=== PATIENT | female | born 2000 | race Caucasian/White ===

== ENCOUNTER 2023-06-22 14:06 | Emergency (ER) | payer OTHER, MEDICAID, SELFPAY ==
[2023-06-22 14:12] VITALS: BP 122/61; PULSE 98; RESP 18; TEMP 36.6; O2SAT 98; BMI 35.0
--- NOTE | 2023-06-22 14:30 | ECG_ITS ---
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
--- NOTE | 2023-06-22 14:30 | ED.GENADUL1 ---
Documented by User: BRENDEN Ansari 06/22/23 15:29 HPI - General Adult General Chief complaint: Abdominal Pain Stated complaint: GENERAL WEEKNESS Time Seen by Provider: 06/22/23 14:16 Source: patient Mode of arrival: walk-in History of Present Illness HPI narrative: patient is a 22-year-old female presents to the Emergency Room with concerns of generalized weakness and fatigue. Patient's primary concern with significant other at the bedside is that she may be . She had similar symptoms in the past which resulted in a miscarriage. She has only had one prior documented . She did take a home urine test that was negative a few weeks ago. Patient states her last menstrual cycle was May 24. She denies any current nausea vomiting or diarrhea. States she has not wanted to eat much in the mornings. She appears in no distress. She has had a prior history of bladder surgery as an and occasionally gets urinary tract infection and notes intermittent pelvic discomfort but denies any current symptoms. Patient denies any chest pain or shortness of breath. She denies any vaginal discharge or bleeding. Related Data Home Medications Medication Instructions Recorded Confirmed bupropion HCl 300 mg 24 hr tablet, 300 mg PO DAILY 06/22/23 06/22/23 extended release lumateperone 42 mg capsule 42 mg PO DAILY 06/22/23 06/22/23 (Caplyta) quetiapine 100 mg tablet 100 mg PO DAILY 06/22/23 06/22/23 Allergies Allergy/AdvReac Type Severity Reaction Status Date / Time No Known Drug Allergies Allergy Verified 06/22/23 14:15 Review of Systems ROS Constitutional Reports: fatigue; Denies: fever, chills or change in weight Eyes Denies: change in vision or blurry vision Ears, nose, mouth, and throat Denies: throat pain or neck pain Cardiovascular Denies: chest pain or palpitations Respiratory Denies: shortness of breath Gastrointestinal Denies: nausea (occasional nausea in mornings, denies current symptoms), vomiting or diarrhea Genitourinary Denies: painful urination Musculoskeletal Denies: back pain, neck pain or extremity pain Integumentary/Breast Denies: rash, itching or redness Neurological Denies: headache or numbness in extremities Psychiatric Denies: anxiety Endocrine Denies: excessive urination PFSH PFSH Social History Smoking status: Current some day smoker Exam Narrative Exam Narrative: Nurses notes and vital signs reviewed and patient is not hypoxic. General:? The patient appears well and in no apparent distress.? Patient is resting comfortably on cart. Skin:? Warm, dry, no pallor noted. Head:? Normocephalic, atraumatic Neck:? Supple, trachea mid-line, no tenderness, no lymphadenopathy Eye:? Pupils are equal, round and reactive to light, EOMI Ears, Nose, Mouth, and Throat:? TM are clear, normal light reflex, oral mucosa is moist, no posterior oropharynx erythema or hypertrophy, uvula is mid-line Cardiovascular:? Regular Rate and Rhythm Respiratory:? Patient is in no distress, no accessory muscle use, lungs are clear to auscultation, no wheezing, rales or rhonchi. Chest Wall:? no tenderness Back:? non-tender, no CVA tenderness Musculoskeletal:? normal ROM, no tenderness, no swelling GI:? Normal bowel sounds, no tenderness to palpation, no masses appreciated.? No rebound, guarding, or rigidity noted. Abdomen non surgical Neurological:? A&O x4 Psychiatric:? Cooperative Constitutional Vital Signs, click to edit/add: Last Vital Signs Temp 98 F 06/22/23 14:12 Pulse 98 H 06/22/23 14:12 Resp 18 06/22/23 14:12 BP 122/61 06/22/23 14:12 Pulse Ox 98 06/22/23 14:12 O2 Del Method Room Air 06/22/23 14:12 Course Vital Signs Vital signs: Vital Signs Temperature 98 F 06/22/23 14:12 Pulse Rate 98 H 06/22/23 14:12 Respiratory Rate 18 06/22/23 14:12 Blood Pressure 122/61 06/22/23 14:12 Pulse Oximetry 98 06/22/23 14:12 Oxygen Delivery Method Room Air 06/22/23 14:12 Temperature 98 F 06/22/23 14:12 Pulse Rate 98 H 06/22/23 14:12 Respiratory Rate 18 06/22/23 14:12 Blood Pressure 122/61 06/22/23 14:12 Pulse Oximetry 98 06/22/23 14:12 Oxygen Delivery Method Room Air 06/22/23 14:12 Medical Decision Making MDM Narrative Medical decision making narrative: patient presents with vague fatigue symptoms over the past two weeks, decreased appetite in the mornings with am nausea. Previous home test negative, patient states she has had a negative test in the past that was later confirmed positive during a miscarriage at Hospital. She has a pertinent history for prior bladder surgery as an infant with occasional urinary tract infection. Urinalysis will be obtained and blood work appropriate for her symptoms. Patient to be given 1 L IV fluids. we discussed patient's generalized fatigue, she was noting multiple symptoms concerning for . We discussed the timing of her last menstrual cycle and testing still may be too early to tell and recommend healthy eating, avoiding alcohol and quitting smoking if she is trying to become . We discussed the need for outpatient follow-up and she will be given the local providers. Patient aware that may be further outpatient testing and to patient's fatigue that can be performed, and that she may return to the Emergency Room if symptoms worsen or new symptoms develop. The patient is to followup with primary care physician in next 5-7 days or to return to the emergency department should any of the signs or symptoms worsen or new symptoms develop. Patient had questions answered. The patient agrees with the following Diagnosis and Treatment plan and the patient will be discharged home.? Lab Data Lab results reviewed: Yes I reviewed the patient's lab results Lab results narrative: discussed discussed urinalysis without evidence of infection, Monospot was negative. Discussed negative test. Labs: Lab Results 06/22/23 06/22/23 Range/Units 14:40 14:45 WBC 7.2 (4.0-11.0) 10^3/uL RBC 4.26 (4.20-5.40) 10^6/uL Hgb 13.4 (12.0-16.0) g/dL Hct 37.8 (36.0-48.0) % MCV 88.7 (81.0-99.0) fL MCH 31.5 (26.7-34.0) pg MCHC 35.4 H (29.9-35.2) g/dL RDW 12.2 (11.0-15.0) % Plt Count 234 (150-450) 10^3/uL MPV 9.8 (9.5-13.5) fL Neut % (Auto) 61.6 (43.0-75.0) % Lymph % (Auto) 32.5 (20.5-60.0) % [place] % (Auto) 5.4 (1.7-12.0) % Eos % (Auto) 0.0 L (0.9-7.0) % Baso % (Auto) 0.1 L (0.2-2.0) % Neut # (Auto) 4.4 (1.4-6.5) 10^3/uL Lymph # (Auto) 2.3 (1.2-3.8) 10^3/uL [place] # (Auto) 0.4 (0.3-0.8) 10^3/uL Eos # (Auto) 0.0 (0.0-0.7) 10^3/uL Baso # (Auto) 0.0 (0.0-0.1) 10^3/uL Abs Immat Gran (auto) 0.03 (0.00-0.03) 10^3/uL Imm/Tot Granulo (auto) 0.4 (0.0-0.5) % Sodium 139 (136-145) mmol/L Potassium 3.8 (3.5-5.1) mmol/L Chloride 105 (98-107) mmol/L Carbon Dioxide 24.5 (21.0-32.0) mmol/L Anion Gap 13.3 BUN 9.0 (7.0-18.0) mg/dL Creatinine 0.86 (0.55-1.02) mg/dL Est GFR ( Amer) >60 (>=60) Est GFR (Non-Af Amer) >60 (>=60) BUN/Creatinine Ratio 10.5 Glucose 120 H (74-106) mg/dL Calcium 8.6 (8.5-10.1) mg/dL Total Bilirubin 0.8 (0.2-1.0) mg/dL AST 14 L (15-37) U/L ALT 12 L (14-59) U/L Alkaline Phosphatase 64 (46-116) U/L Total Protein 6.6 (6.4-8.2) g/dL Albumin 3.9 (3.4-5.0) g/dL Globulin 2.7 g/dL Albumin/Globulin Ratio 1.4 Serum HCG, Qual Negative (NEGATIVE) Urine Color Yellow (YELLOW) Urine Clarity Clear (CLEAR) Urine pH 6.5 (5.0-9.0) Ur Specific [place] 1.020 (1.005-1.025) Urine Protein Negative (NEG/TRACE) mg/dL Urine Glucose (UA) Negative (NEGATIVE) mg/dL Urine Ketones Negative (NEGATIVE) mg/dL Urine Occult Blood Negative (NEGATIVE) Urine Nitrite Negative (NEGATIVE) Urine Bilirubin Negative (NEGATIVE) Urine Urobilinogen 0.2 (0.2-1.0) EU/dL Ur Leukocyte Esterase Negative (NEGATIVE) Monoscreen Negative (NEGATIVE) ECG Data Attestation: I personally reviewed and interpreted this ECG as follows: Interpretation: EKG interpretation:? Emergency Department physician interpretation, normal sinus rhythm, no ectopy, no ST segment elevation, in complete right bundle-branch block Discharge Plan Discharge Chief Complaint: Abdominal Pain Clinical Impression: Encounter for test, result negative, Fatigue Patient Disposition: Home, Self-Care Time of Disposition Decision: 15:26 Condition: Good Prescriptions / Home Meds: No Action bupropion HCl 300 mg tablet extended release 24 hr 300 mg PO DAILY Caplyta 42 mg capsule 42 mg PO DAILY quetiapine 100 mg tablet 100 mg PO DAILY Instructions: How to Stop Smoking (ED), Fatigue (ED) Stand Alone Forms: Portal Instructions Referrals: Asaf Pack DO [Physician] - 1 week Fuad Victoria MD [Physician] - 1 week Discharge Date/Time: 06/22/23 16:03 Documented by User: Josefina Jasso MD 06/23/23 20:31 HPI - General Adult General Chief complaint: Abdominal Pain Stated complaint: GENERAL WEEKNESS Time Seen by Provider: 06/22/23 14:16 Related Data Home Medications Medication Instructions Recorded Confirmed bupropion HCl 300 mg 24 hr tablet, 300 mg PO DAILY 06/22/23 06/22/23 extended release lumateperone 42 mg capsule 42 mg PO DAILY 06/22/23 06/22/23 (Caplyta) quetiapine 100 mg tablet 100 mg PO DAILY 06/22/23 06/22/23 Allergies Allergy/AdvReac Type Severity Reaction Status Date / Time No Known Drug Allergies Allergy Verified 06/22/23 14:15 PFSH PFSH Social History Smoking status: Current some day smoker Exam Constitutional Vital Signs, click to edit/add: Last Vital Signs Temp 98 F 06/22/23 14:12 Pulse 98 H 06/22/23 14:12 Resp 18 06/22/23 14:12 BP 122/61 06/22/23 14:12 Pulse Ox 98 06/22/23 14:12 O2 Del Method Room Air 06/22/23 14:12 Course Vital Signs Vital signs: Vital Signs Temperature 98 F 06/22/23 14:12 Pulse Rate 98 H 06/22/23 14:12 Respiratory Rate 18 06/22/23 14:12 Blood Pressure 122/61 06/22/23 14:12 Pulse Oximetry 98 06/22/23 14:12 Oxygen Delivery Method Room Air 06/22/23 14:12 Temperature 98 F 06/22/23 14:12 Pulse Rate 98 H 06/22/23 14:12 Respiratory Rate 18 06/22/23 14:12 Blood Pressure 122/61 06/22/23 14:12 Pulse Oximetry 98 06/22/23 14:12 Oxygen Delivery Method Room Air 06/22/23 14:12 Medical Decision Making MDM Narrative Medical decision making narrative: patient presents with vague fatigue symptoms over the past two weeks, decreased appetite in the mornings with am nausea. Previous home test negative, patient states she has had a negative test in the past that was later confirmed positive during a miscarriage at Hospital. She has a pertinent history for prior bladder surgery as an infant with occasional urinary tract infection. Urinalysis will be obtained and blood work appropriate for her symptoms. Patient to be given 1 L IV fluids. we discussed patient's generalized fatigue, she was noting multiple symptoms concerning for . We discussed the timing of her last menstrual cycle and testing still may be too early to tell and recommend healthy eating, avoiding alcohol and quitting smoking if she is trying to become . We discussed the need for outpatient follow-up and she will be given the local providers. Patient aware that may be further outpatient testing and to patient's fatigue that can be performed, and that she may return to the Emergency Room if symptoms worsen or new symptoms develop. The patient is to followup with primary care physician in next 5-7 days or to return to the emergency department should any of the signs or symptoms worsen or new symptoms develop. Patient had questions answered. The patient agrees with the following Diagnosis and Treatment plan and the patient will be discharged home.? Attending physician attestation . I have reviewed the mid-level documentation, agree with the documentation, medical decision making and treatment plan as outlined by the mid-level provider. Lab Data Labs: Lab Results 06/22/23 06/22/23 Range/Units 14:40 14:45 WBC 7.2 (4.0-11.0) 10^3/uL RBC 4.26 (4.20-5.40) 10^6/uL Hgb 13.4 (12.0-16.0) g/dL Hct 37.8 (36.0-48.0) % MCV 88.7 (81.0-99.0) fL MCH 31.5 (26.7-34.0) pg MCHC 35.4 H (29.9-35.2) g/dL RDW 12.2 (11.0-15.0) % Plt Count 234 (150-450) 10^3/uL MPV 9.8 (9.5-13.5) fL Neut % (Auto) 61.6 (43.0-75.0) % Lymph % (Auto) 32.5 (20.5-60.0) % [place] % (Auto) 5.4 (1.7-12.0) % Eos % (Auto) 0.0 L (0.9-7.0) % Baso % (Auto) 0.1 L (0.2-2.0) % Neut # (Auto) 4.4 (1.4-6.5) 10^3/uL Lymph # (Auto) 2.3 (1.2-3.8) 10^3/uL [place] # (Auto) 0.4 (0.3-0.8) 10^3/uL Eos # (Auto) 0.0 (0.0-0.7) 10^3/uL Baso # (Auto) 0.0 (0.0-0.1) 10^3/uL Abs Immat Gran (auto) 0.03 (0.00-0.03) 10^3/uL Imm/Tot Granulo (auto) 0.4 (0.0-0.5) % Sodium 139 (136-145) mmol/L Potassium 3.8 (3.5-5.1) mmol/L Chloride 105 (98-107) mmol/L Carbon Dioxide 24.5 (21.0-32.0) mmol/L Anion Gap 13.3 BUN 9.0 (7.0-18.0) mg/dL Creatinine 0.86 (0.55-1.02) mg/dL Est GFR ( Amer) >60 (>=60) Est GFR (Non-Af Amer) >60 (>=60) BUN/Creatinine Ratio 10.5 Glucose 120 H (74-106) mg/dL Calcium 8.6 (8.5-10.1) mg/dL Total Bilirubin 0.8 (0.2-1.0) mg/dL AST 14 L (15-37) U/L ALT 12 L (14-59) U/L Alkaline Phosphatase 64 (46-116) U/L Total Protein 6.6 (6.4-8.2) g/dL Albumin 3.9 (3.4-5.0) g/dL Globulin 2.7 g/dL Albumin/Globulin Ratio 1.4 Serum HCG, Qual Negative (NEGATIVE) Urine Color Yellow (YELLOW) Urine Clarity Clear (CLEAR) Urine pH 6.5 (5.0-9.0) Ur Specific [place] 1.020 (1.005-1.025) Urine Protein Negative (NEG/TRACE) mg/dL Urine Glucose (UA) Negative (NEGATIVE) mg/dL Urine Ketones Negative (NEGATIVE) mg/dL Urine Occult Blood Negative (NEGATIVE) Urine Nitrite Negative (NEGATIVE) Urine Bilirubin Negative (NEGATIVE) Urine Urobilinogen 0.2 (0.2-1.0) EU/dL Ur Leukocyte Esterase Negative (NEGATIVE) Monoscreen Negative (NEGATIVE) Discharge Plan Discharge Chief Complaint: Abdominal Pain Clinical Impression: Encounter for test, result negative, Fatigue Patient Disposition: Home, Self-Care Time of Disposition Decision: 15:26 Condition: Good Prescriptions / Home Meds: No Action bupropion HCl 300 mg tablet extended release 24 hr 300 mg PO DAILY Caplyta 42 mg capsule 42 mg PO DAILY quetiapine 100 mg tablet 100 mg PO DAILY Instructions: How to Stop Smoking (ED), Fatigue (ED) Stand Alone Forms: Portal Instructions Referrals: Asaf Pack DO [Physician] - 1 week Fuad Victoria MD [Physician] - 1 week Discharge Date/Time: 06/22/23 16:03
[2023-06-22 14:54] LABS: Basophils Percent Auto 0.1 % (0.2-2.0); Hematocrit 37.8 % (36.0-48.0); Hemoglobin 13.4 g/dL (12.0-16.0); Immature Granulocytes Abs Auto 0.03 10^3/uL (0.00-0.03); Immature Granulocytes Pct Auto 0.4 % (0.0-0.5); Lymphocytes Absolute Auto 2.3 10^3/uL (1.2-3.8); Lymphocytes Percent Auto 32.5 % (20.5-60.0); Mean Corpuscular HGB Conc 35.4 g/dL (29.9-35.2); Mean Corpuscular Hemoglobin 31.5 pg (26.7-34.0); Mean Corpuscular Volume 88.7 fL (81.0-99.0); Mean Platelet Volume 9.8 fL (9.5-13.5); Monocytes Absolute Auto 0.4 10^3/uL (0.3-0.8); Monocytes Percent Auto 5.4 % (1.7-12.0); Neutrophils Absolute Auto 4.4 10^3/uL (1.4-6.5); Neutrophils Percent Auto 61.6 % (43.0-75.0); Platelet Count 234 10^3/uL (150-450); Red Blood Count 4.26 10^6/uL (4.20-5.40); Red Cell Distribution Width 12.2 % (11.0-15.0); White Blood Count 7.2 10^3/uL (4.0-11.0)
[2023-06-22 15:04] LABS: Mono Screen NEGATIVE (NEGATIVE)
[2023-06-22 15:05] LABS: HCG Qualitative NEGATIVE (NEGATIVE)
[2023-06-22 15:08] LABS: Alanine Aminotransferase 12 U/L (14-59); Albumin Globulin Ratio 1.4; Albumin Level 3.9 g/dL (3.4-5.0); Alkaline Phosphatase 64 U/L (46-116); Anion Gap 13.3; Aspartate Amino Transferase 14 U/L (15-37); BUN Creatinine Ratio 10.5; Bilirubin Total 0.8 mg/dL (0.2-1.0); Calcium 8.6 mg/dL (8.5-10.1); Carbon Dioxide 24.5 mmol/L (21.0-32.0); Chloride 105 mmol/L (98-107); Estimated GFR (African America >60 (>=60); Estimated GFR (Non-African Ame >60 (>=60); Globulin 2.7 g/dL; Glucose 120 mg/dL (74-106); Potassium 3.8 mmol/L (3.5-5.1); Sodium 139 mmol/L (136-145); Total Protein 6.6 g/dL (6.4-8.2)
[2023-06-22] MEDS: 0.9 % SODIUM CHLORIDE 1,000 ML 999 ML IV (15:14)
[2023-06-22 15:20] LABS: Bilirubin Urine NEGATIVE (NEGATIVE); Blood Urine NEGATIVE (NEGATIVE); Clarity Urine CLEAR (CLEAR); Color Urine YELLOW (YELLOW); Glucose Urine UA NEGATIVE (NEGATIVE); Ketones Urine NEGATIVE (NEGATIVE); Leukocyte Esterase Urine NEGATIVE (NEGATIVE); Nitrite Urine NEGATIVE (NEGATIVE); Protein Urine NEGATIVE (NEG/TRACE); Urobilinogen Urine 0.2 EU/dL (0.2-1.0); pH Urine 6.5 (5.0-9.0)
[2023-06-22 15:21] LABS: Urine Microscopic Indicated NO
== END 2023-06-22 16:03 | disposition home or self-care (01) ==
PROVIDERS: Personal Emergency Response Attendant; Emergency Provider Emergency Medicine
DX: Z32.02 Encounter for pregnancy test, result negative (principal); R53.83 Other fatigue; I45.10 Unspecified right bundle-branch block; F17.210 Nicotine dependence, cigarettes, uncomplicated; Z79.899 Other long term (current) drug therapy
CPT/HCPCS: 36415; 80053; 81003; 83690; 84703; 85025; 86308; 93005; 99285

== ENCOUNTER 2023-07-31 19:22 | Emergency (ER) | payer OTHER, MEDICAID, SELFPAY ==
[2023-07-31 19:28] VITALS: BP 144/82; PULSE 95; RESP 16; TEMP 37.2; O2SAT 99; BMI 33.8
--- NOTE | 2023-07-31 19:39 | ECG_ITS ---
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
--- NOTE | 2023-07-31 19:45 | XR_ITS ---
The [address] [address] Patient Name: BUBBA LARIOS MRN: [id number] date: 2000 Sex: F Assigned Patient Location: ER Current Patient Location: ER Accession/Order Number: [id number] Exam Date: 07/31/2023 20:10 Report Date: 07/31/2023 20:36 At the request of: JESUS CRUZ Procedure: XR chest 1V EXAM: XR chest 1V at 4 hours HISTORY: Chest pain COMPARISON: None. TECHNIQUE: AP upright portable chest x-ray FINDINGS: The heart is not enlarged and the vasculature is not distended. No acute infiltrate, effusion or pneumothorax is identified. The osseous structures are grossly intact. XR/XR chest 1V IMPRESSION: No acute infiltrate or evidence of cardiac decompensation. Direct comparison with a previous study would be helpful in determining the chronicity of these findings. Electronically authenticated by: JORDAN ARREGUIN Date: 07/31/2023 20:36
--- NOTE | 2023-07-31 19:46 | ED_ITS ---
Documented by User: BRENDEN Gallego 07/31/23 21:38 HPI - Chest Pain General Chief Complaint: Chest Pain Stated Complaint: JUL 09 FOUND OUT PREG-CHEST PAIN Time Seen by Provider: 07/31/23 19:38 Source: patient and family Mode of arrival: walk-in Limitations: no limitations History of Present Illness HPI narrative: patient is a 22-year-old female who presents to the emergency department at approximately nine weeks of with concern for chest pain and left shoulder pain. Patient states for the past two days she has had pain in the chest and left shoulder that is worse with movement. She has not had any fevers, cough, congestion, shortness of breath. She has not had any abdominal pain, vaginal bleeding or fluid leakage. She has not yet been seen by her STRIKE OUT MACHINE OPERATOR and has no appointment on 08/15/23. She states that she had a miscarriage one year ago and is very anxious that her chest pain may be representing an additional miscarriage. Her significant other at bedside is requesting heart tones. Patient is on anxiety medication from her psychiatrist in [place] but stopped this medication when she found out she was two weeks ago. She has not been able to get a hold of her psychiatrist or her upcoming STRIKE OUT MACHINE OPERATOR to discuss her medications. she has had nausea and vomiting associated with morning sickness. She is on no medications for home for this. Risk Factors Coronary artery disease risk factors: smoking history Related Data Home Medications Medication Instructions Recorded Confirmed bupropion HCl 300 mg 24 hr tablet, 300 mg PO DAILY 06/22/23 07/31/23 extended release lumateperone 42 mg capsule 42 mg PO DAILY 06/22/23 07/31/23 (Caplyta) Previous Rx's Medication Instructions Recorded ondansetron 4 mg disintegrating 4 mg PO Q6H PRN nausea and 07/31/23 tablet vomiting #12 tabs Allergies Allergy/AdvReac Type Severity Reaction Status Date / Time No Known Drug Allergies Allergy Verified 06/22/23 14:15 Review of Systems ROS Constitutional Denies: fever or chills Ears, nose, mouth, and throat Denies: neck pain Cardiovascular Reports: chest pain Respiratory Denies: shortness of breath or cough Gastrointestinal Reports: nausea and vomiting Musculoskeletal Denies: back pain or neck pain Integumentary/Breast Denies: rash Neurological Denies: headache Hematologic/Lymphatic Denies: easy bruising PFSH PFSH Social History Smoking status: Current every day smoker Exam Narrative Exam Narrative: Gen.: Awake, alert, in no distress Head: Normocephalic, atraumatic ENT: Moist mucous membranes Respiratory: No respiratory distress, lungs clear bilaterally Cardio: Regular rate and rhythm Gastrointestinal: Abdomen is soft, nondistended and nontender to palpation Extremities: Moves extremities equally Psych: Normal mood and affect Neuro: No focal neuro deficit Skin: Warm, dry, intact Constitutional Vital Signs, click to edit/add: Last Vital Signs Temp 99.0 F 07/31/23 19:28 Pulse 95 H 07/31/23 19:28 Resp 16 07/31/23 19:28 BP 144/82 H 07/31/23 19:28 Pulse Ox 99 07/31/23 19:28 O2 Del Method Room Air 07/31/23 19:28 Course Vital Signs Vital signs: Vital Signs Temperature 99.0 F 07/31/23 19:28 Pulse Rate 95 H 07/31/23 19:28 Respiratory Rate 16 07/31/23 19:28 Blood Pressure 144/82 H 07/31/23 19:28 Pulse Oximetry 99 07/31/23 19:28 Oxygen Delivery Method Room Air 07/31/23 19:28 Temperature 99.0 F 07/31/23 19:28 Pulse Rate 95 H 07/31/23 19:28 Respiratory Rate 16 07/31/23 19:28 Blood Pressure 144/82 H 07/31/23 19:28 Pulse Oximetry 99 07/31/23 19:28 Oxygen Delivery Method Room Air 07/31/23 19:28 MDM - Chest Pain MDM Narrative Medical decision making narrative: EKG, lab studies with no evidence of acute cardiopulmonary changes. Chest x-ray also reviewed reviewed by the radiologist with no evidence of acute abnormalitie s. We were unable to obtain heart tones and as the patient has not yet had imaging to establish an intrauterine gestation, she was sent for an ultrasound which shows a approximately eight weeks, in the uterus with no evidence of other acute abnormalities. Patient was given education and reassurance. She was strongly encouraged to return to the emergency department if symptoms change or worsen. She was reexamined by attending physician prior to discharge. Medical Records Data Attestation: I reviewed the patient's medical records. Lab Data Attestation: I reviewed the patient's lab results. Labs: Lab Results 07/31/23 Range/Units 19:53 WBC 9.1 (4.0-11.0) 10^3/uL RBC 4.22 (4.20-5.40) 10^6/uL Hgb 13.1 (12.0-16.0) g/dL Hct 37.7 (36.0-48.0) % MCV 89.3 (81.0-99.0) fL MCH 31.0 (26.7-34.0) pg MCHC 34.7 (29.9-35.2) g/dL RDW 12.2 (11.0-15.0) % Plt Count 284 (150-450) 10^3/uL MPV 9.9 (9.5-13.5) fL Neut % (Auto) 64.6 (43.0-75.0) % Lymph % (Auto) 28.3 (20.5-60.0) % Chase % (Auto) 6.6 (1.7-12.0) % Eos % (Auto) 0.1 L (0.9-7.0) % Baso % (Auto) 0.1 L (0.2-2.0) % Neut # (Auto) 5.9 (1.4-6.5) 10^3/uL Lymph # (Auto) 2.6 (1.2-3.8) 10^3/uL Chase # (Auto) 0.6 (0.3-0.8) 10^3/uL Eos # (Auto) 0.0 (0.0-0.7) 10^3/uL Baso # (Auto) 0.0 (0.0-0.1) 10^3/uL Abs Immat Gran (auto) 0.03 (0.00-0.03) 10^3/uL Imm/Tot Granulo (auto) 0.3 (0.0-0.5) % Sodium 136 (136-145) mmol/L Potassium 3.4 L (3.5-5.1) mmol/L Chloride 105 (98-107) mmol/L Carbon Dioxide 24.4 (21.0-32.0) mmol/L Anion Gap 10.0 BUN 10.0 (7.0-18.0) mg/dL Creatinine 0.70 (0.55-1.02) mg/dL Est GFR ( Amer) >60 (>=60) Est GFR (Non-Af Amer) >60 (>=60) BUN/Creatinine Ratio 14.3 Glucose 79 (74-106) mg/dL Calcium 9.0 (8.5-10.1) mg/dL Total Bilirubin 0.3 (0.2-1.0) mg/dL AST 19 (15-37) U/L ALT 53 (14-59) U/L Alkaline Phosphatase 64 (46-116) U/L Troponin I High Sens 4.6 (4.0-51.3) pg/mL Total Protein 6.9 (6.4-8.2) g/dL Albumin 3.5 (3.4-5.0) g/dL Globulin 3.4 g/dL Albumin/Globulin Ratio 1.0 HCG, Quant 71312 mIU/mL Imaging Data US - abdomen: Attestation: I have reviewed the pertinent imaging results. Radiologist's impression: Procedure: US OB transvaginal EXAM: US OB transvaginal HISTORY: miscarriage COMPARISON: None. TECHNIQUE: First trimester testicular ultrasound performed FINDINGS: Intrauterine at 8 weeks 5 days by ultrasound criteria. heart tones are 168 bpm. Cervical length is 3.8 cm. No torsion. No features of ectopic . No significant free fluid IMPRESSION: Single live intrauterine at 8 weeks 5 days by ultrasound criteria. Cervical length is 2.8 cm. Electronically authenticated by: ELOY CHOI Date: 07/31/2023 21:34 Chest x-ray: Attestation: I have reviewed the pertinent imaging results. Radiologist's impression: Procedure: XR chest 1V EXAM: XR chest 1V at 2024 hours HISTORY: Chest pain COMPARISON: None. TECHNIQUE: AP upright portable chest x-ray FINDINGS: The heart is not enlarged and the vasculature is not distended. No acute infiltrate, effusion or pneumothorax is identified. The osseous structures are grossly intact. IMPRESSION: No acute infiltrate or evidence of cardiac decompensation. Direct comparison with a previous study would be helpful in determining the chronicity of these findings. Electronically authenticated by: JORDAN ARREGUIN Date: 07/31/2023 20:36 Heart Score History: Slightly/Non-Suspicious ECG: Normal Age: <45 years Risk Factors: 1 or 2 Risk Factors Troponin: <Normal Limit Total Heart Score Recommendations & Risks:: 1 Discharge Plan Discharge Chief Complaint: Chest Pain Clinical Impression: Intrauterine , Chest pain Patient Disposition: Home, Self-Care Time of Disposition Decision: 21:33 Condition: Good Prescriptions / Home Meds: New ondansetron 4 mg tablet,disintegrating 4 mg PO Q6H PRN (Reason: nausea and vomiting) Qty: 12 0RF No Action bupropion HCl 300 mg tablet extended release 24 hr 300 mg PO DAILY Caplyta 42 mg capsule 42 mg PO DAILY Instructions: Noncardiac Chest Pain (ED), at 7 to 10 Weeks (ED) Stand Alone Forms: Portal Instructions Referrals: Physician,Non-Staff, MD [Primary Care Provider] - 1 week Documented by User: Ja Sheridan 07/31/23 21:45 HPI - Chest Pain General Chief Complaint: Chest Pain Stated Complaint: JUL 09 FOUND OUT PREG-CHEST PAIN Time Seen by Provider: 07/31/23 19:38 Related Data Home Medications Medication Instructions Recorded Confirmed bupropion HCl 300 mg 24 hr tablet, 300 mg PO DAILY 06/22/23 07/31/23 extended release lumateperone 42 mg capsule 42 mg PO DAILY 06/22/23 07/31/23 (Caplyta) Previous Rx's Medication Instructions Recorded ondansetron 4 mg disintegrating 4 mg PO Q6H PRN nausea and 07/31/23 tablet vomiting #12 tabs Allergies Allergy/AdvReac Type Severity Reaction Status Date / Time No Known Drug Allergies Allergy Verified 06/22/23 14:15 PFSH PFSH Social History Smoking status: Current every day smoker Exam Constitutional Vital Signs, click to edit/add: Last Vital Signs Temp 99.0 F 07/31/23 19:28 Pulse 95 H 07/31/23 19:28 Resp 16 07/31/23 19:28 BP 144/82 H 07/31/23 19:28 Pulse Ox 99 07/31/23 19:28 O2 Del Method Room Air 07/31/23 19:28 Course Vital Signs Vital signs: Vital Signs Temperature 99.0 F 07/31/23 19:28 Pulse Rate 95 H 07/31/23 19:28 Respiratory Rate 16 07/31/23 19:28 Blood Pressure 144/82 H 07/31/23 19:28 Pulse Oximetry 99 07/31/23 19:28 Oxygen Delivery Method Room Air 07/31/23 19:28 Temperature 99.0 F 07/31/23 19:28 Pulse Rate 95 H 07/31/23 19:28 Respiratory Rate 16 07/31/23 19:28 Blood Pressure 144/82 H 07/31/23 19:28 Pulse Oximetry 99 07/31/23 19:28 Oxygen Delivery Method Room Air 07/31/23 19:28 MDM - Chest Pain Lab Data Labs: Lab Results 07/31/23 Range/Units 19:53 WBC 9.1 (4.0-11.0) 10^3/uL RBC 4.22 (4.20-5.40) 10^6/uL Hgb 13.1 (12.0-16.0) g/dL Hct 37.7 (36.0-48.0) % MCV 89.3 (81.0-99.0) fL MCH 31.0 (26.7-34.0) pg MCHC 34.7 (29.9-35.2) g/dL RDW 12.2 (11.0-15.0) % Plt Count 284 (150-450) 10^3/uL MPV 9.9 (9.5-13.5) fL Neut % (Auto) 64.6 (43.0-75.0) % Lymph % (Auto) 28.3 (20.5-60.0) % Chase % (Auto) 6.6 (1.7-12.0) % Eos % (Auto) 0.1 L (0.9-7.0) % Baso % (Auto) 0.1 L (0.2-2.0) % Neut # (Auto) 5.9 (1.4-6.5) 10^3/uL Lymph # (Auto) 2.6 (1.2-3.8) 10^3/uL Chase # (Auto) 0.6 (0.3-0.8) 10^3/uL Eos # (Auto) 0.0 (0.0-0.7) 10^3/uL Baso # (Auto) 0.0 (0.0-0.1) 10^3/uL Abs Immat Gran (auto) 0.03 (0.00-0.03) 10^3/uL Imm/Tot Granulo (auto) 0.3 (0.0-0.5) % Sodium 136 (136-145) mmol/L Potassium 3.4 L (3.5-5.1) mmol/L Chloride 105 (98-107) mmol/L Carbon Dioxide 24.4 (21.0-32.0) mmol/L Anion Gap 10.0 BUN 10.0 (7.0-18.0) mg/dL Creatinine 0.70 (0.55-1.02) mg/dL Est GFR ( Amer) >60 (>=60) Est GFR (Non-Af Amer) >60 (>=60) BUN/Creatinine Ratio 14.3 Glucose 79 (74-106) mg/dL Calcium 9.0 (8.5-10.1) mg/dL Total Bilirubin 0.3 (0.2-1.0) mg/dL AST 19 (15-37) U/L ALT 53 (14-59) U/L Alkaline Phosphatase 64 (46-116) U/L Troponin I High Sens 4.6 (4.0-51.3) pg/mL Total Protein 6.9 (6.4-8.2) g/dL Albumin 3.5 (3.4-5.0) g/dL Globulin 3.4 g/dL Albumin/Globulin Ratio 1.0 HCG, Quant 22201 mIU/mL Heart Score Total Heart Score Recommendations & Risks:: 1 Discharge Plan Discharge Chief Complaint: Chest Pain Clinical Impression: Intrauterine , Chest pain Patient Disposition: Home, Self-Care Time of Disposition Decision: 21:33 Condition: Good Prescriptions / Home Meds: New ondansetron 4 mg tablet,disintegrating 4 mg PO Q6H PRN (Reason: nausea and vomiting) Qty: 12 0RF No Action bupropion HCl 300 mg tablet extended release 24 hr 300 mg PO DAILY Caplyta 42 mg capsule 42 mg PO DAILY Instructions: Noncardiac Chest Pain (ED), at 7 to 10 Weeks (ED) Stand Alone Forms: Portal Instructions Referrals: Physician,Non-Staff, MD [Primary Care Provider] - 1 week
[2023-07-31 19:51] VITALS: PULSE 90
[2023-07-31 20:00] LABS: Basophils Percent Auto 0.1 % (0.2-2.0); Eosinophils Percent Auto 0.1 % (0.9-7.0); Hematocrit 37.7 % (36.0-48.0); Hemoglobin 13.1 g/dL (12.0-16.0); Immature Granulocytes Abs Auto 0.03 10^3/uL (0.00-0.03); Immature Granulocytes Pct Auto 0.3 % (0.0-0.5); Lymphocytes Absolute Auto 2.6 10^3/uL (1.2-3.8); Lymphocytes Percent Auto 28.3 % (20.5-60.0); Mean Corpuscular HGB Conc 34.7 g/dL (29.9-35.2); Mean Corpuscular Volume 89.3 fL (81.0-99.0); Mean Platelet Volume 9.9 fL (9.5-13.5); Monocytes Absolute Auto 0.6 10^3/uL (0.3-0.8); Monocytes Percent Auto 6.6 % (1.7-12.0); Neutrophils Absolute Auto 5.9 10^3/uL (1.4-6.5); Neutrophils Percent Auto 64.6 % (43.0-75.0); Platelet Count 284 10^3/uL (150-450); Red Blood Count 4.22 10^6/uL (4.20-5.40); Red Cell Distribution Width 12.2 % (11.0-15.0); White Blood Count 9.1 10^3/uL (4.0-11.0)
--- NOTE | 2023-07-31 20:05 | US_ITS ---
[address] [address] Patient Name: BUBBA LARIOS MRN: [id number] date: 2000 Sex: F Assigned Patient Location: ER Current Patient Location: ER Accession/Order Number: [id number] Exam Date: 07/31/2023 20:25 Report Date: 07/31/2023 21:34 At the request of: JESUS CRUZ Procedure: US OB transvaginal EXAM: US OB transvaginal HISTORY: miscarriage COMPARISON: None. TECHNIQUE: First trimester testicular ultrasound performed FINDINGS: Intrauterine at 8 weeks 5 days by ultrasound criteria. heart tones are 168 bpm. Cervical length is 3.8 cm. No torsion. No features of ectopic . No significant free fluid US/US OB transvaginal IMPRESSION: Single live intrauterine at 8 weeks 5 days by ultrasound criteria. Cervical length is 2.8 cm. Electronically authenticated by: ELOY CHOI Date: 07/31/2023 21:34
[2023-07-31] MEDS: ONDANSETRON PF 4 MG/2 ML VIAL IV (20:22)
[2023-07-31] MEDS: 0.9 % SODIUM CHLORIDE 1,000 ML 1000 ML IV (20:22)
[2023-07-31 20:41] LABS: Alanine Aminotransferase 53 U/L (14-59); Albumin Level 3.5 g/dL (3.4-5.0); Alkaline Phosphatase 64 U/L (46-116); Aspartate Amino Transferase 19 U/L (15-37); BUN Creatinine Ratio 14.3; Bilirubin Total 0.3 mg/dL (0.2-1.0); Carbon Dioxide 24.4 mmol/L (21.0-32.0); Chloride 105 mmol/L (98-107); Estimated GFR (African America >60 (>=60); Estimated GFR (Non-African Ame >60 (>=60); Globulin 3.4 g/dL; Glucose 79 mg/dL (74-106); Potassium 3.4 mmol/L (3.5-5.1); Sodium 136 mmol/L (136-145); Total Protein 6.9 g/dL (6.4-8.2); Troponin I High Sensitivity 4.6 pg/mL (4.0-51.3)
== END 2023-07-31 21:46 | disposition home or self-care (01) ==
PROVIDERS: Physician Assistant; Emergency Provider Emergency Medicine
DX: O26.891 Other specified pregnancy related conditions, first trimester (principal); R07.9 Chest pain, unspecified; O99.341 Other mental disorders complicating pregnancy, first trimester; F41.9 Anxiety disorder, unspecified; O99.331 Smoking (tobacco) complicating pregnancy, first trimester; F17.210 Nicotine dependence, cigarettes, uncomplicated; Z79.899 Other long term (current) drug therapy; Z3A.09 9 weeks gestation of pregnancy
CPT/HCPCS: 36415; 71045; 76817; 80053; 84484; 84702; 85025; 93005; 96374; 99285

== ENCOUNTER 2023-08-15 09:24 | Outpatient (OUT) | payer OTHER, MEDICAID, SELFPAY ==
--- NOTE | 2023-08-15 09:28 | US_ITS ---
[address] [address] Patient Name: BUBBA LARIOS MRN: [id number] date: 2000 Sex: F Assigned Patient Location: US Current Patient Location: US Accession/Order Number: [id number] Exam Date: 08/15/2023 09:40 Report Date: 08/15/2023 15:41 At the request of: KRAIG MARK Procedure: US OB transvaginal EXAMINATION: US OB transvaginal HISTORY: MISSED MENSES COMPARISON: Ultrasound OB transvaginal 07/31/2023 FINDINGS: GESTATIONAL SAC: Present and normal appearing. YOLK SAC: Present and normal appearing. POLE: Present and normal appearing. CARDIAC: Present. UTERUS: Normal size and appearance. OVARIES: Right: Normal. Left: Normal. CERVIX: 3.6 cm in length and closed. CUL-DE-SAC: Normal. OTHER: None. AGE BY LMP: 10 weeks 6 days LUIS BY LMP: 03/06/2024 AGE BY US CRL: 11 weeks 0 days LUIS BY US CRL: 03/05/2024 US/US OB transvaginal IMPRESSION: 1. Single live intrauterine . Electronically authenticated by: CAMMY ARZOLA Date: 08/15/2023 15:41
== END 2023-08-15 09:25 | disposition home or self-care (01) ==
LOC: US 09:24
PROVIDERS: Visit Provider Obstetrics & Gynecology
DX: Z34.92 Encounter for supervision of normal pregnancy, unspecified, second trimester (principal); N92.6 Irregular menstruation, unspecified
CPT/HCPCS: 76817

== ENCOUNTER 2023-09-09 11:48 | Outpatient (OUT) | payer OTHER, MEDICAID, SELFPAY ==
[2023-09-09 12:09] LABS: BOX Test Sent Out Y
[2023-09-09 12:21] LABS: Basophils Percent Auto 0.1 % (0.2-2.0); Eosinophils Percent Auto 0.1 % (0.9-7.0); Hematocrit 35.5 % (36.0-48.0); Hemoglobin 12.4 g/dL (12.0-16.0); Immature Granulocytes Abs Auto 0.02 10^3/uL (0.00-0.03); Immature Granulocytes Pct Auto 0.2 % (0.0-0.5); Lymphocytes Percent Auto 23.3 % (20.5-60.0); Mean Corpuscular HGB Conc 34.9 g/dL (29.9-35.2); Mean Corpuscular Hemoglobin 31.6 pg (26.7-34.0); Mean Corpuscular Volume 90.3 fL (81.0-99.0); Monocytes Absolute Auto 0.3 10^3/uL (0.3-0.8); Monocytes Percent Auto 3.8 % (1.7-12.0); Neutrophils Absolute Auto 6.3 10^3/uL (1.4-6.5); Neutrophils Percent Auto 72.5 % (43.0-75.0); Platelet Count 258 10^3/uL (150-450); Red Blood Count 3.93 10^6/uL (4.20-5.40); Red Cell Distribution Width 12.2 % (11.0-15.0); White Blood Count 8.7 10^3/uL (4.0-11.0)
[2023-09-09 13:34] LABS: Estimated Average Glucose 91 mg/dL; Glycohemoglobin A1C 4.8 % (4.5-6.2)
[2023-09-09 13:47] LABS: Thyroid Stimulating Hormone 0.613 uIU/mL (0.358-3.740)
[2023-09-10 06:08] LABS: HBsAg Screen Negative (Negative); HCV Ab Non Reactive (Non Reactive)
[2023-09-10 07:08] LABS: Rubella Antibodies, IgG 7.58 index (Immune >0.99)
[2023-09-10 08:11] LABS: HIV Ab/p24 Ag Screen Non Reactive (Non Reactive)
[2023-09-10 11:09] LABS: Rapid Plasma Reagin, Quant Non Reactive titer (NonRea<1:1)
== END 2023-09-09 11:49 | disposition home or self-care (01) ==
LOC: LAB 11:48
PROVIDERS: Visit Provider Obstetrics & Gynecology
DX: Z34.80 Encounter for supervision of other normal pregnancy, unspecified trimester (principal)
CPT/HCPCS: 36415; 83036; 84443; 85025; 86592; 86762; 86803; 86850; 86900; 86901; 87086; 87340; 87389

== ENCOUNTER 2023-10-27 20:45 | Outpatient (REF) | payer OTHER, MEDICAID, SELFPAY ==
[2023-10-30 16:11] LABS: Age Gdln ACOG Testing Note (.); IGP, rfx Aptima HPV ASCU Note (.)
== END 2023-10-27 20:46 | disposition home or self-care (01) ==
LOC: LAB 20:45
PROVIDERS: Visit Provider Physician Assistant
DX: Z01.419 Encounter for gynecological examination (general) (routine) without abnormal findings (principal)
CPT/HCPCS: G0145

== ENCOUNTER 2023-11-26 12:57 | Outpatient (OUT) | payer OTHER, MEDICAID, SELFPAY ==
--- NOTE | 2023-11-26 12:59 | US_ITS ---
[address] [address] Patient Name: BUBBA LARIOS MRN: [id number] date: 2000 Sex: F Assigned Patient Location: US Current Patient Location: US Accession/Order Number: [id number] Exam Date: 11/26/2023 12:59 Report Date: 11/26/2023 14:05 At the request of: KRAIG MARK Procedure: US OB cervical length EXAMINATION: US OB anatomy, US OB cervical length HISTORY: ANATOMY COMPARISON: No relevant comparison available. TECHNIQUE: Transabdominal sonographic examination was performed for obstetrical and evaluation. FINDINGS: Number: 1 Heart Rate: 144.0 bpm H.B. /min Amniotic Fluid Volume: Subjectively normal position: Breech presentation, longitudinal lie Placental Location: Posterior. Placental edge 5.8 cm from the internal cervical os Cervix Length: 4.9 cm, closed Anatomy: Lateral ventricles, cerebellum, posterior fossa, nose, lips, four-chamber heart, RVOT, LVOT, diaphragm, stomach, kidneys, abdominal cord insertion, bladder, umbilical arteries, three-vessel cord, spine, extremities BIOMETRY: BPD: 6.3 cm 25 weeks 3 days , 34% HC: 23.0 cm 25 weeks 0 days, 13% AC: 21.0 cm 25 weeks 4 days, 40% FL: 4.6 cm 25 weeks 2 days , 27% EFW:803.8 grams; , 1 lb. 12 oz., 30% FL/AC: 21.9 FL/BPD: 73.5 HC/AC: 1.1 GESTATIONAL AGE: Age by EDC: 25 weeks 4 days Age by current US: 25 weeks 2 days LUIS by current US: 03/08/2024 LUIS by EDC: 03/06/2024 US/US OB cervical length IMPRESSION: Normal anatomy scan *Reference: [employer] Practice Guideline for the performance of Obstetric Ultrasound Examinations, August 24, 2007. Electronically authenticated by: DWIGHT FOY Date: 11/26/2023 14:05
--- NOTE | 2023-11-26 12:59 | US_ITS ---
[address] [address] Patient Name: BUBBA LARIOS MRN: [id number] date: 2000 Sex: F Assigned Patient Location: US Current Patient Location: US Accession/Order Number: [id number] Exam Date: 11/26/2023 12:59 Report Date: 11/26/2023 14:05 At the request of: KRAIG MARK Procedure: US OB anatomy EXAMINATION: US OB anatomy, US OB cervical length HISTORY: ANATOMY COMPARISON: No relevant comparison available. TECHNIQUE: Transabdominal sonographic examination was performed for obstetrical and evaluation. FINDINGS: Number: 1 Heart Rate: 144.0 bpm H.B. /min Amniotic Fluid Volume: Subjectively normal position: Breech presentation, longitudinal lie Placental Location: Posterior. Placental edge 5.8 cm from the internal cervical os Cervix Length: 4.9 cm, closed Anatomy: Lateral ventricles, cerebellum, posterior fossa, nose, lips, four-chamber heart, RVOT, LVOT, diaphragm, stomach, kidneys, abdominal cord insertion, bladder, umbilical arteries, three-vessel cord, spine, extremities BIOMETRY: BPD: 6.3 cm 25 weeks 3 days , 34% HC: 23.0 cm 25 weeks 0 days, 13% AC: 21.0 cm 25 weeks 4 days, 40% FL: 4.6 cm 25 weeks 2 days , 27% EFW:803.8 grams; , 1 lb. 12 oz., 30% FL/AC: 21.9 FL/BPD: 73.5 HC/AC: 1.1 GESTATIONAL AGE: Age by EDC: 25 weeks 4 days Age by current US: 25 weeks 2 days LUIS by current US: 03/08/2024 LUIS by EDC: 03/06/2024 US/US OB anatomy IMPRESSION: Normal anatomy scan *Reference: [facility] Practice Guideline for the performance of Obstetric Ultrasound Examinations, August 24, 2007. Electronically authenticated by: DWIGHT FOY Date: 11/26/2023 14:05
--- OUTSIDE RECORDS SUMMARY | 2023-11-26 13:00 | XMS_ITS | CCD ---
Author Name Unknown Address [address] [place] [address] Organization [facility] Care Team Providers Care Corrections Cadet Name Role Phone AISHA, KEL Primary Care Unavailable LILIANE, DR MURCIA Admitting Unavailable LILIANE, DR MURCIA Attending Unavailable HOUSE, DR MURCIA Primary Care Unavailable BLAYNE, ADDIE Admitting Unavailable BLAYNE, ADDIE Attending Unavailable BLAYNE, ADDIE Consulting Unavailable AISHA, KEL Primary Care Unavailable ANAMARIA, DR GAMBOA Admitting Unavailable HAY, DR GAMBOA Attending Unavailable HAY, DR GAMBOA Consulting Unavailable HOUSE, DR DIVINA Sierraitting Unavailable HOUSE, DR MURCIA Attending Unavailable HOUSE, DR MURCIA Primary Care Unavailable HOUSE, DR MURCIA Consulting Unavailable HOUSE, DR DIVINA Sierraitting Unavailable HOUSE, DR MURCIA Attending Unavailable HOUSE, DR MURCIA Primary Care Unavailable CAMERON, DR DWIGHT Kingsley Consulting Unavailable HOUSE, DR MURCIA Consulting Unavailable TK, JOHN Attending Unavailable TK, JOHN Attending Unavailable Problems Active Problems Problem Classification Problem Date Documented Da te Episodic/Chronic Mood disorders (1 source) Bipolar disorder, unspecified; Translations: [BIPOLAR DISORDER UNSPECIFIED] Onset: 11-19-2021 Chronic Substance-related disorders (1 source) Nicotine dependence, cigarettes, uncomplicated; Translations: [NICOTINE DEPEND CIGARETTES UNCOMP] Onset: 05-22-2022 Chronic Unclassified (1 source) CONTACT W/AND (SUSP) EXPOS COVID-19; Translations: [CONTACT W/AND (SUSP) EXPOS COVID-19] Onset: 11-19-2021 Past or Other Problems Problem Classification Problem Date Documented Da te Episodic/Chronic Other aftercare (1 source) Other intermission coordinator (current) drug therapy; Translations: [OTH BENCH MOVER CURRENT DRUG THERAPY] Onset: 11-19-2021 Episodic Other gastrointestinal disorders (4 sources) Other constipation; Translations: [OTHER CONSTIPATION] Onset: 02-14-2022 Episodic Other non-traumatic joint disorders (4 sources) Pain in left shoulder; Translations: [PAIN IN LEFT SHOULDER] Onset: 05-23-2022 Episodic Other upper respiratory infections (5 sources) Acute pharyngitis, unspecified; Translations: [Acute upper respiratory infection, unspecified] Onset: 11-16-2021 Episodic Urinary tract infections (4 sources) Urinary tract infection, site not specified; Translations: [UTI SITE NOT SPECIFIED] Onset: 05-21-2022 Episodic Results Test Name Value Interpretation Reference Range Facil ity CULTURE URINEon 05-23-2022 CULTURE URINE Isolate 1 Escherichia coli >100,000 cfu/mL of ORGANISM 1 Escherichia coli ANTIBIOTIC M.I.C RX STATUS Ampicillin 8 S F Ampicillin/Sulbactam 4 S F Piperacillin/Tazobac sanabria <=4 S F Cefazolin <=4 S F Ceftazidime <=1 S F Ceftriaxone <=1 S F Ertapenem <=0.5 S F Imipenem <=0.25 S F Amikacin <=2 S F Gentamicin <=1 S F Tobramycin <=1 S F Ciprofloxacin >=4 R F Levofloxacin >=8 R F Nitrofurantoin <=16 S F Trimethoprim/Sulfame thoxazole <=20 S F Normal [facility] Comment on above: Performed By: #### U RCX #### [facility] [address] [place] [address] Dr. Mike Alcocer ER URINE PROFILEon 2 Bilirubin Ql (U) Negative Normal NEGATIVE [facility] Comment on above: Performed By: #### U MICRO, ERUR, PREGU #### [facility] [address] [place] [address] Dr. Mike Alcocer Clarity (U) CLEAR Normal CLEAR [facility] Comment on above: Performed By: #### U MICRO, ERUR, PREGU #### [facility] [address] [address] [address] Mike Alcocer Color (U) LT. YELLOW Normal YELLOW [facility] Comment on above: Performed By: #### U MICRO, ERUR, PREGU #### [facility] [address] [place] [address] Dr. Mike Alcocer ERUAHD A micrscopic examination will be performed if indicated. Normal [facility] Comment on above: Performed By: #### U MICRO, ERUR, PREGU #### [facility] [address] [address] [address] Mike Alcocer Glucose Ql (U) Negative Normal NEGATIVE [facility] Comment on above: Performed By: #### U MICRO, ERUR, PREGU #### [facility] [address] [address] [address] Mike Alcocer Hemoglobin Ql (U) LARGE Abnormal NEGATIVE [facility] Comment on above: Performed By: #### U MICRO, ERUR, PREGU #### [facility] [address] [address] [address] Mike Alcocer Ketones Ql (U) Negative Normal NEGATIVE [facility] Comment on above: Performed By: #### U MICRO, ERUR, PREGU #### [facility] [address] [address] [address] Mike Alcocer LEUKOCYTES Negative Normal NEGATIVE [facility] Comment on above: Performed By: #### U MICRO, ERUR, PREGU #### [facility] [address] [address] [address] Mike Alcocer Nitrite Ql (U) Positive Abnormal NEGATIVE [facility] Comment on above: Performed By: #### U MICRO, ERUR, PREGU #### [facility] [address] [address] [address] Mike Alcocer pH (U) 6.5 [pH] Normal 5-9 [facility] Comment on above: Performed By: #### U MICRO, ERUR, PREGU #### [facility] [address] [address] [address] Mike Alcocer SPEC GRAVITY 1.025 Normal 1.005-<=1.025 [facility] Comment on above: Performed By: #### U MICRO, ERUR, PREGU #### [facility] [address] [address] [address] Mike Alcocer UA PROTEIN Negative Normal NEGATIVE/ TRACE [facility] Comment on above: Performed By: #### U MICRO, ERUR, PREGU #### [facility] [address] [address] [address] Mike Alcocer UR MICRO IND INDICATED Normal [facility] Comment on above: Performed By: #### U MICRO, ERUR, PREGU #### [facility] [address] [address] [address] Mike Alcocer Urobilinogen Qn (U) 0.2 {Molly'U}/dL Normal 0.2 - 1. 0 [facility] Comment on above: Performed By: #### U MICRO, ERUR, PREGU #### [facility] [address] [place] [address] Dr. Mike Alcocer URon 05-21-2022 , QUAL Negative Normal NEGATIVE [facility] Comment on above: Performed By: #### U MICRO, ERUR, PREGU #### [facility] [address] [place] [address] Dr. Mike Alcocer URINE MICROSCOPIC ONLYon BACTERIA MODERATE Abnormal NONE SEEN [facility] Comment on above: Performed By: #### U MICRO, ERUR, PREGU #### [facility] [address] [place] [address] Dr. Mike Alcocer Bacteria identified Cx Nom (U) INDICATED Normal [facility] Comment on above: Performed By: #### U MICRO, ERUR, PREGU #### [facility] [address] [place] [address] Dr. Mike Alcocer CAST NONE SEEN Normal NONE SEEN [facility] Comment on above: Performed By: #### U MICRO, ERUR, PREGU #### [facility] [address] [place] [address] Dr. Mike Alcocer Crystals LM Nom (Urine sed) NONE SEEN Normal NONE SEEN [facility] Comment on above: Performed By: #### U MICRO, ERUR, PREGU #### [facility] [address] [place] [address] Dr. Mike Alcocer Epithelial cells LM Ql (Urine sed) FEW Abnormal NONE SEEN /RARE [facility] Comment on above: Performed By: #### U MICRO, ERUR, PREGU #### [facility] [address] [place] [address] Dr. Mike Alcocer MUCOUS NONE SEEN Normal NONE SEEN [facility] Comment on above: Performed By: #### U MICRO, ERUR, PREGU #### [facility] [address] [place] [address] Dr. Mike Alcocer RBC 10-20 Abnormal 0-2 [facility] Comment on above: Performed By: #### U MICRO, ERUR, PREGU #### [facility] [address] [place] [address] Dr. Mike Alcocer WBC 2-5 Abnormal NONE SEEN [facility] Comment on above: Performed By: #### U MICRO, ERUR, PREGU #### [facility] [address] [place] [address] Dr. Mike Alcocer CBC AUTO DIFFon 02-14-2022 BASO # 0.1 103/ul Normal 0.0-0.1 [facility] Comment on above: Performed By: #### C MP, TSH, T4 #### [facility] [address] [place] [address] Dr. Mike Alcocer Basophils/100 WBC (Bld) 0.7 % Normal 0.2-2.0 [facility] Comment on above: Performed By: #### C MP, TSH, T4 #### [facility] [address] [place] [address] Dr. Mike Alcocer EO # 0.3 103/ul Normal 0.0-0.7 [facility] Comment on above: Performed By: #### C MP, TSH, T4 #### [facility] [address] [place] [address] Dr. Mike Alcocer Eosinophils/100 WBC (Bld) 3.5 % Normal 0.9-7.0 [facility] Comment on above: Performed By: #### C MP, TSH, T4 #### [facility] [address] [place] [address] Dr. Mike Alcocer Erythrocyte distribution width (RBC) [Ratio] 13.2 % Normal 11.0-15.0 [facility] Comment on above: Performed By: #### C MP, TSH, T4 #### [facility] [address] [place] [address] Dr. Mike Alcocer Hematocrit (Bld) [Volume fraction] 40.1 % Normal 36.0-48.0 [facility] Comment on above: Performed By: #### C MP, TSH, T4 #### [facility] [address] [place] [address] Dr. Mike Alcocer Hemoglobin (Bld) [Mass/Vol] 13.7 g/dL Normal 12.0-16.0 [facility] Comment on above: Performed By: #### C MP, TSH, T4 #### [facility] [address] [place] [address] Dr. Mike Alcocer IG # 0.03 10e3/ul Normal 0.00-0.03 [facility] Comment on above: Performed By: #### C MP, TSH, T4 #### [facility] [address] [place] [address] Dr. Mike Alcocer IG % 0.4 % Normal 0.0-0.5 [facility] Comment on above: Performed By: #### C MP, TSH, T4 #### [facility] [address] [place] [address] Dr. Mike Alcocer LYMPH # 2.5 103/ul Normal 1.2-3.8 [facility] Comment on above: Performed By: #### C MP, TSH, T4 #### [facility] [address] [place] [address] Dr. Mike Alcocer Lymphocytes/100 WBC (Bld) 34.6 % Normal 20.5-60.0 [facility] Comment on above: Performed By: #### C MP, TSH, T4 #### [facility] [address] [place] [address] Dr. Mike Alcocer MANUAL DIFF REQ NO Normal [facility] Comment on above: Performed By: #### C MP, TSH, T4 #### [facility] [address] [place] [address] Dr. Mike Alcocer MCH (RBC) [Entitic mass] 29.3 pg Normal 26.7-34.0 [facility] Comment on above: Performed By: #### C MP, TSH, T4 #### [facility] [address] [place] [address] Dr. Mike Alcocer MCHC (RBC) [Mass/Vol] 34.2 g/dL Normal 29.9-35.2 [facility] Comment on above: Performed By: #### C MP, TSH, T4 #### [facility] [address] [place] [address] Dr. Mike Alcocer MCV (RBC) [Entitic vol] 85.9 fL Normal 81.0-99.0 [facility] Comment on above: Performed By: #### C MP, TSH, T4 #### [facility] [address] [place] [address] Dr. Mike Alcocer MONO # 0.3 103/ul Normal 0.3-0.8 [facility] Comment on above: Performed By: #### C MP, TSH, T4 #### [facility] [address] [place] [address] Dr. Mike Alcocer Monocytes/100 WBC (Bld) 3.5 % Normal 1.7-12.0 [facility] Comment on above: Performed By: #### C MP, TSH, T4 #### [facility] [address] [place] [address] Dr. Mike Alcocer NEUT # 4.2 103/ul Normal 1.4-6.5 [facility] Comment on above: Performed By: #### C MP, TSH, T4 #### [facility] [address] [place] [address] Dr. Mike Alcocer Neutrophils/100 WBC (Bld) 57.3 % Normal 43.0-75.0 [facility] Comment on above: Performed By: #### C MP, TSH, T4 #### [facility] [address] [place] [address] Dr. Mike Alcocer Platelet mean volume (Bld) [Entitic vol] 9.2 fL Critically low 9.5-13.5 [facility] Comment on above: Performed By: #### C MP, TSH, T4 #### [facility] [address] [place] [address] Dr. Mike Alcocer PLT 341 103/ul Normal 150-450 [facility] Comment on above: Performed By: #### C MP, TSH, T4 #### [facility] [address] [place] [address] Dr. Mike Alcocer RBC 4.67 106/ul Normal 4.20-5.40 [facility] Comment on above: Performed By: #### C MP, TSH, T4 #### [facility] [address] [place] [address] Dr. Mike Alcocer WBC 7.2 103/ul Normal 4.0-11.0 [facility] Comment on above: Performed By: #### C MP, TSH, T4 #### [facility] [address] [place] [address] Dr. Mike Alcocer PROF 14(COMP METB)on 022 Albumin [Mass/Vol] 3.9 g/dL Normal 3.4-5.0 [facility] Comment on above: Performed By: #### C MP, TSH, T4 #### [facility] [address] [place] [address] Dr. Mike Alcocer Albumin/Globulin [Mass ratio] 1.1 {ratio} [facility] Comment on above: Performed By: #### C MP, TSH, T4 #### [facility] [address] [place] [address] Dr. Mike Alcocer ALP [Catalytic activity/Vol] 115 U/L Normal 46-116 [facility] Comment on above: Performed By: #### C MP, TSH, T4 #### [facility] [address] [place] [address] Dr. Mike Alcocer ALT [Catalytic activity/Vol] 28 U/L Normal 14-59 [facility] Comment on above: Performed By: #### C MP, TSH, T4 #### [facility] [address] [place] [address] Dr. Mike Alcocer Anion gap [Moles/Vol] 14.8 mmol/L Normal [facility] Comment on above: Performed By: #### C MP, TSH, T4 #### [facility] [address] [place] [address] Dr. Mike Alcocer AST [Catalytic activity/Vol] 19 U/L Normal 15-37 [facility] Comment on above: Performed By: #### C MP, TSH, T4 #### [facility] [address] [place] [address] Dr. Mike Alcocer Bilirubin [Mass/Vol] 0.4 mg/dL Normal 0.2-1.3 [facility] Comment on above: Performed By: #### C MP, TSH, T4 #### [facility] [address] [place] [address] Dr. Mike Alcocer Calcium [Mass/Vol] 9.1 mg/dL Normal 8.5-10.1 [facility] Comment on above: Performed By: #### C MP, TSH, T4 #### [facility] [address] [place] [address] Dr. Mike Alcocer Chloride [Moles/Vol] 102 mmol/L Normal 98-107 [facility] Comment on above: Performed By: #### C MP, TSH, T4 #### [facility] [address] [place] [address] Dr. Mike Alcocer CO2 [Moles/Vol] 25.8 mmol/L Normal 22.0-30.0 [facility] Comment on above: Performed By: #### C MP, TSH, T4 #### [facility] [address] [place] [address] Dr. Mike Alcocer Creatinine [Mass/Vol] 0.84 mg/dL Normal 0.52-1.04 [facility] Comment on above: Performed By: #### C MP, TSH, T4 #### [facility] [address] [place] [address] Dr. Mike Alcocer EGFR-AF MONGOLIAN >60 Normal >=60 [facility] Comment on above: Performed By: #### C MP, TSH, T4 #### [facility] [address] [place] [address] Dr. Mike Alcocer EGFR-NON AF MONGOLIAN >60 Normal >=60 [facility] Comment on above: Performed By: #### C MP, TSH, T4 #### [facility] [address] [address] [address] Mike Alcocer Globulin (S) [Mass/Vol] 3.4 g/dL Normal [facility] Comment on above: Performed By: #### C MP, TSH, T4 #### [facility] [address] [address] [address] Mike Alcocer Glucose [Mass/Vol] 98 mg/dL Normal 74-106 [facility] Comment on above: Performed By: #### C MP, TSH, T4 #### [facility] [address] [address] [address] Mike Alcocer Potassium [Moles/Vol] 3.6 mmol/L Normal 3.4-5.0 [facility] Comment on above: Performed By: #### C MP, TSH, T4 #### [facility] [address] [place] [address] Dr. Mike Alcocer Protein [Mass/Vol] 7.3 g/dL Normal 6.1-8.2 [facility] Comment on above: Performed By: #### C MP, TSH, T4 #### [facility] [address] [place] [address] Dr. Mike Alcocer Sodium [Moles/Vol] 139 mmol/L Normal 137-145 [facility] Comment on above: Performed By: #### C MP, TSH, T4 #### [facility] [address] [place] [address] Dr. Mike Alcocer Urea nitrogen [Mass/Vol] 7.0 mg/dL Normal 7.0-18.0 [facility] Comment on above: Performed By: #### C MP, TSH, T4 #### [facility] [address] [place] [address] Dr. Mike Alcocer Urea nitrogen/Creatinine [Mass ratio] 8.3 mg/mg Normal [facility] Comment on above: Performed By: #### C MP, TSH, T4 #### [facility] [address] [place] [address] Dr. Mike Alcocer T4on 02-14-2022 T4 [Mass/Vol] 7.80 ug/dL Normal 5.53-11.00 [facility] Comment on above: Performed By: #### C MP, TSH, T4 #### [facility] [address] [place] [address] Dr. Mike Alcocer TSHon 02-14-2022 TSH 1.071 uIU/mL Normal 0.470-4.680 [facility] Comment on above: Performed By: #### C MP, TSH, T4 #### [facility] [address] [place] [address] Dr. Mike Alcocer TSH RANGE SEE BELOW Normal [facility] Comment on above: Result Comment: <0.3 4 UIU/ml HYPERTHYROID 0.34-5.60 UIU/ml EUTHYROID >5.60 UIU/ml HYPOTHYROID Performed By: #### C MP, TSH, T4 #### [facility] [address] [place] [address] Dr. Mike Alcocer CULTURE THROATon 11-16-2021 CULTURE THROAT Isolate 1 Haemophilus influenzae Heavy growth of Normal [facility] Comment on above: Performed By: #### C MP, TSH, T4 #### [facility] [address] [place] [address] Dr. Mike Alcocer Covid-19 PCR ([facility]on 10-25 SARS-CoV-2 (COVID-19) RNA RUSTY+probe Ql (Unsp spec) Not detected Normal NOT DETECTED [facility] Comment on above: Result Comment: This test is not yet approved or cleared by the [place] FDA. When there are no FDA-approved or cleared tests available, and other criteria are met, FDA can make tests available under an emergency access mechanism called an Emergency Use Authorization (EUA). The EUA for this test is supported by the Capacity Management Specialist of Health and Human Service's (HHS's) declaration that circumstances exist to justify the emergency use of in vitro diagnostics for the detection and/or diagnosis of the virus that causes COVID-19. This EUA will remain in effect (meaning this test can be used) for the duration of the COVID-19 declaration justifying emergency of IVDs, unless it is terminated or revoked by FDA (after which the test may no longer be used). When diagnostic testing is negative, the possibility of a false negative should be considered in the context of a patient's recent exposures and the presence of clinical signs and symptoms consistent with SARS-CoV-2. Performed By: #### C VDTBH #### [facility] [address] [address] [address] Mike Alcocer STREPT SCREENon 11-16-2021 STREP SCREEN A Negative Normal NEGATIVE [facility] Comment on above: Performed By: #### S SCRN, THRTCX #### [facility] [address] [address] [address] Mike Alcocer Encounters Encounter Date Encounter Type Care Provider Facility Start: 11-25-2023 End: 11-25-2023 ambulatory JOHN FREY Not Available Start: 10-27-2023 End: 10-27-2023 ambulatory JOHN FREY Not Available Start: 05-23-2022 End: 05-24-[address] DIVINA MOMIN Facility:[facility] Start: 05-21-2022 End: 05-21-[address] DIVINA MOMIN Facility:[facility] Start: 02-14-2022 End: 02-15-[address] DIVINA MOMIN Facility:[facility] Start: 11-16-2021 End: 11-17-2021 ambulatory KEL LEONARD Facility:[facility] Start: 10-19-2021 ambulatory KEL LEONARD Facility:[facility] Payers Date Payer Category Payer Medicaid [id number] 1999 Unknown [id number] 1999 Unknown [id number] 1999 Unknown [id number] .[id number] 1999 Unknown [id number] .[id number] 1999 Unknown [id number] .[id number] [id number] 1999 Unknown [id number] 1999 Unknown [id number] 1959 Self-pay 1960 Unknown [id number] 1960 Unknown [id number] Clinical Note 05-23-2022 Note Date & Type Note Facility 05-23-2022 Note PROCEDURE: XR SHOULD ER LT 2V or > COMPARISON: None. HISTORY: Pain of left shoulder joint FINDINGS: BONES:No fracture, acute abnormality, or significant arthropathy. SOFT TISSUES:Negative. No visible soft tissue swelling. EFFUSION:None visible. OTHER: Negative. IMPRESSION: No acute abnormality Electronically authenticated by: DWIGHT FOY Date: 2022-05-23 17:19 [facility] Summary Purpose Family History No Family History Records FoundNo Family History Records Found Advance Directives No Advanced Directives Records FoundNo Advanced Directives Records Found Additional Source Comments INFORMATION SOURCE (unrecogn ized section and content) DATE CREATED AUTHOR 10/08/2022 [facility] DATE CREATED AUTHOR AUTHOR'S ORGANIZ ATION 11/25/2023 [facility] EPIC FOR RECORDS PERTAINING TO PATIENTS WHO ARE OR HAVE BEEN ENROLLED IN A CHEMICAL DEPENDENCY/SUBSTANCEABUSE PROGRAM, SOME INFORMATION MAY BE OMITTED. This clinical summary was aggregated from multiple sources. Caution should be exercised in using it in the provision of clinical care. This summary normalizes information from multiple sources, and as a consequence, information in this document may materially change the coding, format and clinical context of patient data. In addition, data may be omitted in some cases. CLINICAL DECISIONS SHOULD BE BASED ON THE PRIMARY CLINICAL RECORDS. [employer] provides no warranty or guarantee of the accuracy or completeness of information in this document.
== END 2023-11-26 12:58 | disposition home or self-care (01) ==
LOC: US 12:57
PROVIDERS: Visit Provider Obstetrics & Gynecology
DX: Z34.92 Encounter for supervision of normal pregnancy, unspecified, second trimester (principal)
CPT/HCPCS: 76805; 76817

== ENCOUNTER 2023-12-03 08:58 | Outpatient (OUT) | payer OTHER, MEDICAID, SELFPAY ==
--- OUTSIDE RECORDS SUMMARY | 2023-12-03 09:11 | XMS_ITS | CCD ---
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 Mike Alcocer ER URINE PROFILEon 2 Bilirubin Ql (U) Negative Normal NEGATIVE [facility] Comment on above: Performed By: #### U MICRO, ERUR, PREGU #### [facility] [address] [place] [address] Dr. Mike Alcocer Clarity (U) CLEAR Normal CLEAR [facility] Comment on above: Performed By: #### U MICRO, ERUR, PREGU #### [facility] [address] [address] [address] Mike Alcocer Color (U) LT. YELLOW Normal YELLOW [facility] Comment on above: Performed By: #### U MICRO, ERUR, PREGU #### [facility] [address] [place] [address] Dr. Mike Alcocer ERUAHD A micrscopic examination will be performed if indicated. Normal [facility] Comment on above: Performed By: #### U MICRO, ERUR, PREGU #### [facility] [address] [address] [address] Mike Alcocer Glucose Ql (U) Negative Normal NEGATIVE [facility] Comment on above: Performed By: #### U MICRO, ERUR, PREGU #### [facility] [address] [address] [address] Mike Alcocer Hemoglobin Ql (U) LARGE Abnormal NEGATIVE [facility] Comment on above: Performed By: #### U MICRO, ERUR, PREGU #### [facility] [address] [address] [address] Mike Alcocer Ketones Ql (U) Negative Normal NEGATIVE [facility] Comment on above: Performed By: #### U MICRO, ERUR, PREGU #### [facility] [address] [address] [address] Mike Alcocer LEUKOCYTES Negative Normal NEGATIVE [facility] Comment on above: Performed By: #### U MICRO, ERUR, PREGU #### [facility] [address] [address] [address] Mike Alcocer Nitrite Ql (U) Positive Abnormal NEGATIVE [facility] Comment on above: Performed By: #### U MICRO, ERUR, PREGU #### [facility] [address] [address] [address] Mike Alcocer pH (U) 6.5 [pH] Normal 5-9 [facility] Comment on above: Performed By: #### U MICRO, ERUR, PREGU #### [facility] [address] [address] [address] Mike Alcocer SPEC GRAVITY 1.025 Normal 1.005-<=1.025 [facility] Comment on above: Performed By: #### U MICRO, ERUR, PREGU #### [facility] [address] [address] [address] Mike Alcocer UA PROTEIN Negative Normal NEGATIVE/ TRACE [facility] Comment on above: Performed By: #### U MICRO, ERUR, PREGU #### [facility] [address] [address] [address] Mike Alcocer UR MICRO IND INDICATED Normal [facility] Comment on above: Performed By: #### U MICRO, ERUR, PREGU #### [facility] [address] [address] [address] Mike Alcocer Urobilinogen Qn (U) 0.2 {Molly'U}/dL Normal 0.2 - 1. 0 [facility] Comment on above: Performed By: #### U MICRO, ERUR, PREGU #### [facility] [address] [place] [address] Dr. Mike Alcocer URon 05-21-2022 , QUAL Negative Normal NEGATIVE [facility] Comment on above: Performed By: #### U MICRO, ERUR, PREGU #### [facility] [address] [place] [address] Dr. Mike Alcocer URINE MICROSCOPIC ONLYon BACTERIA MODERATE Abnormal NONE SEEN [facility] Comment on above: Performed By: #### U MICRO, ERUR, PREGU #### [facility] [address] [place] [address] Dr. Mike Alcocer Bacteria identified Cx Nom (U) INDICATED Normal [facility] Comment on above: Performed By: #### U MICRO, ERUR, PREGU #### [facility] [address] [place] [address] Dr. Mike Alcocer CAST NONE SEEN Normal NONE SEEN [facility] Comment on above: Performed By: #### U MICRO, ERUR, PREGU #### [facility] [address] [place] [address] Dr. Mike Alcocer Crystals LM Nom (Urine sed) NONE SEEN Normal NONE SEEN [facility] Comment on above: Performed By: #### U MICRO, ERUR, PREGU #### [facility] [address] [place] [address] Dr. Mike Alcocer Epithelial cells LM Ql (Urine sed) FEW Abnormal NONE SEEN /RARE [facility] Comment on above: Performed By: #### U MICRO, ERUR, PREGU #### [facility] [address] [place] [address] Dr. Mike Aclocer MUCOUS NONE SEEN Normal NONE SEEN [facility] Comment on above: Performed By: #### U MICRO, ERUR, PREGU #### [facility] [address] [place] [address] Dr. Mike Alcocer RBC 10-20 Abnormal 0-2 [facility] Comment on above: Performed By: #### U MICRO, ERUR, PREGU #### [facility] [address] [place] [address] Dr. Mike Alcocer WBC 2-5 Abnormal NONE SEEN [facility] Comment on above: Performed By: #### U MICRO, ERUR, PREGU #### [facility] [address] [place] [address] Dr. Mike Alcocer CBC AUTO DIFFon 02-14-2022 BASO # 0.1 103/ul Normal 0.0-0.1 [facility] Comment on above: Performed By: #### C MP, TSH, T4 #### [facility] [address] [place] [address] Dr. Mike Alcocer Basophils/100 WBC (Bld) 0.7 % Normal 0.2-2.0 [facility] Comment on above: Performed By: #### C MP, TSH, T4 #### [facility] [address] [place] [address] Dr. Mike Alcocer EO # 0.3 103/ul Normal 0.0-0.7 [facility] Comment on above: Performed By: #### C MP, TSH, T4 #### [facility] [address] [place] [address] Dr. Mike Alcocer Eosinophils/100 WBC (Bld) 3.5 % Normal 0.9-7.0 [facility] Comment on above: Performed By: #### C MP, TSH, T4 #### [facility] [address] [place] [address] Dr. Mike Alcocer Erythrocyte distribution width (RBC) [Ratio] 13.2 % Normal 11.0-15.0 [facility] Comment on above: Performed By: #### C MP, TSH, T4 #### [facility] [address] [place] [address] Dr. Mike Alcocer Hematocrit (Bld) [Volume fraction] 40.1 % Normal 36.0-48.0 [facility] Comment on above: Performed By: #### C MP, TSH, T4 #### [facility] [address] [place] [address] Dr. Mike Alcocer Hemoglobin (Bld) [Mass/Vol] 13.7 g/dL Normal 12.0-16.0 [facility] Comment on above: Performed By: #### C MP, TSH, T4 #### [facility] [address] [place] [address] Dr. Mike Alcocer IG # 0.03 10e3/ul Normal 0.00-0.03 [facility] Comment on above: Performed By: #### C MP, TSH, T4 #### [facility] [address] [place] [address] Dr. Mike Alcocer IG % 0.4 % Normal 0.0-0.5 [facility] Comment on above: Performed By: #### C MP, TSH, T4 #### [facility] [address] [place] [address] Dr. Mike Alcocer LYMPH # 2.5 103/ul Normal 1.2-3.8 [facility] Comment on above: Performed By: #### C MP, TSH, T4 #### [facility] [address] [place] [address] Dr. Mike Alcocer Lymphocytes/100 WBC (Bld) 34.6 % Normal 20.5-60.0 [facility] Comment on above: Performed By: #### C MP, TSH, T4 #### [facility] [address] [place] [address] Dr. Mike Alcocer MANUAL DIFF REQ NO Normal [facility] Comment on above: Performed By: #### C MP, TSH, T4 #### [facility] [address] [place] [address] Dr. Mike Alcocer MCH (RBC) [Entitic mass] 29.3 pg Normal 26.7-34.0 [facility] Comment on above: Performed By: #### C MP, TSH, T4 #### [facility] [address] [place] [address] Dr. Mike Alcocer MCHC (RBC) [Mass/Vol] 34.2 g/dL Normal 29.9-35.2 [facility] Comment on above: Performed By: #### C MP, TSH, T4 #### [facility] [address] [place] [address] Dr. Mike Alcocer MCV (RBC) [Entitic vol] 85.9 fL Normal 81.0-99.0 [facility] Comment on above: Performed By: #### C MP, TSH, T4 #### [facility] [address] [place] [address] Dr. Mike Alcocer MONO # 0.3 103/ul Normal 0.3-0.8 [facility] Comment on above: Performed By: #### C MP, TSH, T4 #### [facility] [address] [place] [address] Dr. Mike Alcocer Monocytes/100 WBC (Bld) 3.5 % Normal 1.7-12.0 [facility] Comment on above: Performed By: #### C MP, TSH, T4 #### [facility] [address] [place] [address] Dr. Mike Alcocer NEUT # 4.2 103/ul Normal 1.4-6.5 [facility] Comment on above: Performed By: #### C MP, TSH, T4 #### [facility] [address] [place] [address] Dr. Mike Alcocer Neutrophils/100 WBC (Bld) 57.3 % Normal 43.0-75.0 [facility] Comment on above: Performed By: #### C MP, TSH, T4 #### [facility] [address] [place] [address] Dr. Mike Alcocer Platelet mean volume (Bld) [Entitic vol] 9.2 fL Critically low 9.5-13.5 [facility] Comment on above: Performed By: #### C MP, TSH, T4 #### [facility] [address] [place] [address] Dr. Mike Alcocer PLT 341 103/ul Normal 150-450 [facility] Comment on above: Performed By: #### C MP, TSH, T4 #### [facility] [address] [place] [address] Dr. Mike Alcocer RBC 4.67 106/ul Normal 4.20-5.40 [facility] Comment on above: Performed By: #### C MP, TSH, T4 #### [facility] [address] [place] [address] Dr. Mike Alcocer WBC 7.2 103/ul Normal 4.0-11.0 [facility] Comment on above: Performed By: #### C MP, TSH, T4 #### [facility] [address] [place] [address] Dr. Mike Alcocer PROF 14(COMP METB)on 022 Albumin [Mass/Vol] 3.9 g/dL Normal 3.4-5.0 [facility] Comment on above: Performed By: #### C MP, TSH, T4 #### [facility] [address] [place] [address] Dr. Mike Alcocer Albumin/Globulin [Mass ratio] 1.1 {ratio} [facility] Comment on above: Performed By: #### C MP, TSH, T4 #### [facility] [address] [place] [address] Dr. Mike Alcocer ALP [Catalytic activity/Vol] 115 U/L Normal 46-116 [facility] Comment on above: Performed By: #### C MP, TSH, T4 #### [facility] [address] [place] [address] Dr. Mike Alcocer ALT [Catalytic activity/Vol] 28 U/L Normal 14-59 [facility] Comment on above: Performed By: #### C MP, TSH, T4 #### [facility] [address] [place] [address] Dr. Mike Alcocer Anion gap [Moles/Vol] 14.8 mmol/L Normal [facility] Comment on above: Performed By: #### C MP, TSH, T4 #### [facility] [address] [place] [address] Dr. Mike Alcocer AST [Catalytic activity/Vol] 19 U/L Normal 15-37 [facility] Comment on above: Performed By: #### C MP, TSH, T4 #### [facility] [address] [place] [address] Dr. Mike Alcocer Bilirubin [Mass/Vol] 0.4 mg/dL Normal 0.2-1.3 [facility] Comment on above: Performed By: #### C MP, TSH, T4 #### [facility] [address] [place] [address] Dr. Mike Alcocer Calcium [Mass/Vol] 9.1 mg/dL Normal 8.5-10.1 [facility] Comment on above: Performed By: #### C MP, TSH, T4 #### [facility] [address] [place] [address] Dr. Mike Alcocer Chloride [Moles/Vol] 102 mmol/L Normal 98-107 [facility] Comment on above: Performed By: #### C MP, TSH, T4 #### [facility] [address] [place] [address] Dr. Mike Alcocer CO2 [Moles/Vol] 25.8 mmol/L Normal 22.0-30.0 [facility] Comment on above: Performed By: #### C MP, TSH, T4 #### [facility] [address] [place] [address] Dr. Mike Alcocer Creatinine [Mass/Vol] 0.84 mg/dL Normal 0.52-1.04 [facility] Comment on above: Performed By: #### C MP, TSH, T4 #### [facility] [address] [place] [address] Dr. Mike Alcocer EGFR-AF PARAGUAYAN >60 Normal >=60 [facility] Comment on above: Performed By: #### C MP, TSH, T4 #### [facility] [address] [place] [address] Dr. Mike Alcocer EGFR-NON AF PARAGUAYAN >60 Normal >=60 [facility] Comment on above: Performed By: #### C MP, TSH, T4 #### [facility] [address] [address] [address] Mike Alcocer Globulin (S) [Mass/Vol] 3.4 g/dL Normal [facility] Comment on above: Performed By: #### C MP, TSH, T4 #### [facility] [address] [address] [address] Mike Alcocer Glucose [Mass/Vol] 98 mg/dL Normal 74-106 [facility] Comment on above: Performed By: #### C MP, TSH, T4 #### [facility] [address] [address] [address] Mike Alcocer Potassium [Moles/Vol] 3.6 mmol/L Normal 3.4-5.0 [facility] Comment on above: Performed By: #### C MP, TSH, T4 #### [facility] [address] [place] [address] Dr. Mike Alcocer Protein [Mass/Vol] 7.3 g/dL Normal 6.1-8.2 [facility] Comment on above: Performed By: #### C MP, TSH, T4 #### [facility] [address] [place] [address] Dr. Mike Alcocer Sodium [Moles/Vol] 139 mmol/L Normal 137-145 [facility] Comment on above: Performed By: #### C MP, TSH, T4 #### [facility] [address] [place] [address] Dr. Mike Alcocer Urea nitrogen [Mass/Vol] 7.0 mg/dL Normal 7.0-18.0 [facility] Comment on above: Performed By: #### C MP, TSH, T4 #### [facility] [address] [place] [address] Dr. Mike Alcocer Urea nitrogen/Creatinine [Mass ratio] 8.3 mg/mg Normal [facility] Comment on above: Performed By: #### C MP, TSH, T4 #### [facility] [address] [place] [address] Dr. Mike Alcocer T4on 02-14-2022 T4 [Mass/Vol] 7.80 ug/dL Normal 5.53-11.00 [facility] Comment on above: Performed By: #### C MP, TSH, T4 #### [facility] [address] [place] [address] Dr. Mike Alcocer TSHon 02-14-2022 TSH 1.071 uIU/mL Normal 0.470-4.680 [facility] Comment on above: Performed By: #### C MP, TSH, T4 #### [facility] [address] [place] [address] Dr. Mike Alcocer TSH RANGE SEE BELOW Normal [facility] Comment on above: Result Comment: <0.3 4 UIU/ml HYPERTHYROID 0.34-5.60 UIU/ml EUTHYROID >5.60 UIU/ml HYPOTHYROID Performed By: #### C MP, TSH, T4 #### [facility] [address] [place] [address] Dr. Mike Alcocer CULTURE THROATon 11-16-2021 CULTURE THROAT Isolate 1 Haemophilus influenzae Heavy growth of Normal [facility] Comment on above: Performed By: #### C MP, TSH, T4 #### [facility] [address] [place] [address] Dr. Mike Alcocer [facility]25 SARS-CoV-2 (COVID-19) RNA RUSTY+probe Ql (Unsp spec) Not detected Normal NOT DETECTED [facility] Comment on above: Result Comment: This test is not yet approved or cleared by the [place] FDA. When there are no FDA-approved or cleared tests available, and other criteria are met, FDA can make tests available under an emergency access mechanism called an Emergency Use Authorization (EUA). The EUA for this test is supported by the Community Outreach Director of Health and Human Service's (HHS's) declaration [...] SARS-CoV-2. Performed By: #### C VDTBH #### [facility] [address] [address] [address] Mike Alcocer STREPT SCREENon 11-16-2021 STREP SCREEN A Negative Normal NEGATIVE [facility] Comment on above: Performed By: #### S SCRN, THRTCX #### [facility] [address] [address] [address] Mike Alcocer Encounters Encounter Date Encounter [...] 1 Payers Date Payer Category Payer Medicaid [id number] 1999 Unknown [id number] 1999 Unknown [id number] .[id number] 1999 Unknown [id number] .16.84 [id number] 1999 Unknown [id number] .16.84 [id number] 1999 Unknown [id number] .16.84 [id number] 1999 Unknown [id number] 1999 Unknown [id number] 1959 Self-pay 1959 Unknown [id number] 1960 Unknown [id number] Clinical Note 05-23-2022 Note Date & Type Note Facility 05-23-2022 Note PROCEDURE: XR SHOULD ER LT 2V or > COMPARISON: None. HISTORY: Pain of left shoulder joint FINDINGS: BONES:No fracture, acute abnormality, or significant arthropathy. SOFT TISSUES:Negative. No visible soft tissue swelling. EFFUSION:None visible. OTHER: Negative. IMPRESSION: No acute abnormality Electronically authenticated by: DWIGHT FOY Date: 2022-05-23 17:19 [facility] Summary Purpose Family History No Family History Records FoundNo Family History Records Found Advance Directives No Advanced Directives Records FoundNo Advanced Directives Records Found Additional Source Comments INFORMATION SOURCE (unrecogn ized section and content) DATE CREATED AUTHOR 10/08/2022 [facility] DATE CREATED AUTHOR AUTHOR'S ORGANIZ ATION 11/25/2023 [facility] EPIC FOR RECORDS PERTAINING TO [...] BE BASED ON THE PRIMARY CLINICAL RECORDS. [employer] provides no warranty or guarantee of the accuracy or completeness of information in this document.
[2023-12-03 10:43] LABS: Basophils Percent Auto 0.3 % (0.2-2.0); Eosinophils Percent Auto 0.1 % (0.9-7.0); Glucose 1 Hour 115 mg/dL; Hematocrit 36.8 % (36.0-48.0); Hemoglobin 12.5 g/dL (12.0-16.0); Immature Granulocytes Abs Auto 0.11 10^3/uL (0.00-0.03); Lymphocytes Absolute Auto 2.4 10^3/uL (1.2-3.8); Lymphocytes Percent Auto 22.6 % (20.5-60.0); Mean Corpuscular Hemoglobin 31.1 pg (26.7-34.0); Mean Corpuscular Volume 91.5 fL (81.0-99.0); Mean Platelet Volume 9.5 fL (9.5-13.5); Monocytes Absolute Auto 0.4 10^3/uL (0.3-0.8); Neutrophils Absolute Auto 7.7 10^3/uL (1.4-6.5); Platelet Count 285 10^3/uL (150-450); Red Blood Count 4.02 10^6/uL (4.20-5.40); Red Cell Distribution Width 12.1 % (11.0-15.0); White Blood Count 10.7 10^3/uL (4.0-11.0)
== END 2023-12-03 08:59 | disposition home or self-care (01) ==
LOC: LAB 09:00
PROVIDERS: PCP Family Medicine; Visit Provider Physician Assistant
DX: Z34.92 Encounter for supervision of normal pregnancy, unspecified, second trimester (principal)
CPT/HCPCS: 36415; 82950; 85025

== ENCOUNTER 2023-12-29 01:13 | Observation (INO) | payer OTHER, MEDICAID, SELFPAY ==
--- OUTSIDE RECORDS SUMMARY | 2023-12-29 01:16 | XMS_ITS | CCD ---
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 Mike Alcocer ER URINE PROFILEon 2 Bilirubin Ql (U) Negative Normal NEGATIVE [facility] Comment on above: Performed By: #### U MICRO, ERUR, PREGU #### [facility] [address] [place] [address] Dr. Mike Alcocer Clarity (U) CLEAR Normal CLEAR [facility] Comment on above: Performed By: #### U MICRO, ERUR, PREGU #### [facility] [address] [place] [address] Dr. Mike Alcocer Color (U) LT. YELLOW Normal YELLOW [facility] Comment on above: Performed By: #### U MICRO, ERUR, PREGU #### [facility] [address] [place] [address] Dr. Mike NOVAKAHD A micrscopic examination will be performed if indicated. Normal [facility] Comment on above: Performed By: #### U MICRO, ERUR, PREGU #### [facility] [address] [address] [address] Mike Alcocer Glucose Ql (U) Negative Normal NEGATIVE [facility] Comment on above: Performed By: #### U MICRO, ERUR, PREGU #### [facility] [address] [address] [address] Mike Alcocer Hemoglobin Ql (U) LARGE Abnormal NEGATIVE [facility] Comment on above: Performed By: #### U MICRO, ERUR, PREGU #### [facility] [address] [address] [address] Mike Alcocer Ketones Ql (U) Negative Normal NEGATIVE [facility] Comment on above: Performed By: #### U MICRO, ERUR, PREGU #### [facility] [address] [address] [address] Mike Alcocer LEUKOCYTES Negative Normal NEGATIVE [facility] Comment on above: Performed By: #### U MICRO, ERUR, PREGU #### [facility] [address] [address] [address] Mike Alcocer Nitrite Ql (U) Positive Abnormal NEGATIVE [facility] Comment on above: Performed By: #### U MICRO, ERUR, PREGU #### [facility] [address] [address] [address] Mike Alcocer pH (U) 6.5 [pH] Normal 5-9 [facility] Comment on above: Performed By: #### U MICRO, ERUR, PREGU #### [facility] [address] [address] [address] Mike Alcocer SPEC GRAVITY 1.025 Normal 1.005-<=1.[address] [facility] Comment on above: Performed By: #### U MICRO, ERUR, PREGU #### [facility] [address] [address] [address] Mike Alcocer UA PROTEIN Negative Normal NEGATIVE/ TRACE [facility] Comment on above: Performed By: #### U MICRO, ERUR, PREGU #### [facility] [address] [address] [address] Mike Alcocer UR MICRO IND INDICATED Normal [facility] Comment on above: Performed By: #### U MICRO, ERUR, PREGU #### [facility] [address] [address] [address] Mike Alcocer Urobilinogen Qn (U) 0.2 {Molly'U}/dL Normal 0.2 - 1. 0 [facility] Comment on above: Performed By: #### U MICRO, ERUR, PREGU #### [facility] [address] [address] [address] Mike Alcocer URon 05-21-2022 , QUAL Negative Normal NEGATIVE [facility] Comment on above: Performed By: #### U MICRO, ERUR, PREGU #### [facility] [address] [place] [address] Dr. Mike Alcocer URINE MICROSCOPIC ONLYon BACTERIA MODERATE Abnormal NONE SEEN [facility] Comment on above: Performed By: #### U MICRO, ERUR, PREGU #### [facility] [address] [address] [address] Mike Alcocer Bacteria identified Cx Nom (U) INDICATED Normal [facility] Comment on above: Performed By: #### U MICRO, ERUR, PREGU #### [facility] [address] [address] [address] Mike Alcocer CAST NONE SEEN Normal NONE SEEN [facility] Comment on above: Performed By: #### U MICRO, ERUR, PREGU #### [facility] [address] [address] [address] Mike Alcocer Crystals LM Nom (Urine sed) NONE SEEN Normal NONE SEEN [facility] Comment on above: Performed By: #### U MICRO, ERUR, PREGU #### [facility] [address] [address] [address] Mike Alcocer Epithelial cells LM Ql (Urine sed) FEW Abnormal NONE SEEN /RARE [facility] Comment on above: Performed By: #### U MICRO, ERUR, PREGU #### [facility] [address] [place] [address] Dr. Mike Alcocer MUCOUS NONE SEEN Normal NONE SEEN [facility] Comment on above: Performed By: #### U MICRO, ERUR, PREGU #### [facility] [address] [place] [address] Dr. Mike Alcocer RBC 10-20 Abnormal 0-2 [facility] Comment on above: Performed By: #### U MICRO, ERUR, PREGU #### [facility] [address] [place] [address] Dr. Mike Alcocer WBC 2-5 Abnormal NONE SEEN [facility] Comment on above: Performed By: #### U MICRO, ERUR, PREGU #### [facility] [address] [place] [address] Dr. Mike Alcocer CBC AUTO DIFFon 02-14-2022 BASO # 0.1 103/ul Normal 0.0-0.1 [facility] Comment on above: Performed By: #### C MP, TSH, T4 #### [facility] [address] [place] [address] Dr. Mike Alcocer Basophils/100 WBC (Bld) 0.7 % Normal 0.2-2.0 [facility] Comment on above: Performed By: #### C MP, TSH, T4 #### [facility] [address] [place] [address] Dr. Mike Alcocer EO # 0.3 103/ul Normal 0.0-0.7 [facility] Comment on above: Performed By: #### C MP, TSH, T4 #### [facility] [address] [place] [address] Dr. Mike Alcocer Eosinophils/100 WBC (Bld) 3.5 % Normal 0.9-7.0 [facility] Comment on above: Performed By: #### C MP, TSH, T4 #### [facility] [address] [place] [address] Dr. Mike Alcocer Erythrocyte distribution width (RBC) [Ratio] 13.2 % Normal 11.0-15.0 [facility] Comment on above: Performed By: #### C MP, TSH, T4 #### [facility] [address] [address] [address] Mike Alcocer Hematocrit (Bld) [Volume fraction] 40.1 % Normal 36.0-48.0 [facility] Comment on above: Performed By: #### C MP, TSH, T4 #### [facility] [address] [place] [address] Dr. Mike Alcocer Hemoglobin (Bld) [Mass/Vol] 13.7 g/dL Normal 12.0-16.0 [facility] Comment on above: Performed By: #### C MP, TSH, T4 #### [facility] [address] [place] [address] Dr. Mike Alcocer IG # 0.03 10e3/ul Normal 0.00-0.03 [facility] Comment on above: Performed By: #### C MP, TSH, T4 #### [facility] [address] [place] [address] Dr. Mike Alcocer IG % 0.4 % Normal 0.0-0.5 [facility] Comment on above: Performed By: #### C MP, TSH, T4 #### [facility] [address] [place] [address] Dr. Mike Alcocer LYMPH # 2.5 103/ul Normal 1.2-3.8 [facility] Comment on above: Performed By: #### C MP, TSH, T4 #### [facility] [address] [place] [address] Dr. Mike Alcocer Lymphocytes/100 WBC (Bld) 34.6 % Normal 20.5-60.0 [facility] Comment on above: Performed By: #### C MP, TSH, T4 #### [facility] [address] [place] [address] Dr. Mike Alcocer MANUAL DIFF REQ NO Normal [facility] Comment on above: Performed By: #### C MP, TSH, T4 #### [facility] [address] [place] [address] Dr. Mike Alcocer MCH (RBC) [Entitic mass] 29.3 pg Normal 26.7-34.0 [facility] Comment on above: Performed By: #### C MP, TSH, T4 #### [facility] [address] [place] [address] Dr. Mike Alcocer MCHC (RBC) [Mass/Vol] 34.2 g/dL Normal 29.9-35.2 [facility] Comment on above: Performed By: #### C MP, TSH, T4 #### [facility] [address] [place] [address] Dr. Mike Alcocer MCV (RBC) [Entitic vol] 85.9 fL Normal 81.0-99.0 [facility] Comment on above: Performed By: #### C MP, TSH, T4 #### [facility] [address] [place] [address] Dr. Mike Alcocer MONO # 0.3 103/ul Normal 0.3-0.8 [facility] Comment on above: Performed By: #### C MP, TSH, T4 #### [facility] [address] [place] [address] Dr. Mike Alcocer Monocytes/100 WBC (Bld) 3.5 % Normal 1.7-12.0 [facility] Comment on above: Performed By: #### C MP, TSH, T4 #### [facility] [address] [place] [address] Dr. Mike Alcocer NEUT # 4.2 103/ul Normal 1.4-6.5 [facility] Comment on above: Performed By: #### C MP, TSH, T4 #### [facility] [address] [place] [address] Dr. Mike Alcocer Neutrophils/100 WBC (Bld) 57.3 % Normal 43.0-75.0 [facility] Comment on above: Performed By: #### C MP, TSH, T4 #### [facility] [address] [place] [address] Dr. Mike Alcocer Platelet mean volume (Bld) [Entitic vol] 9.2 fL Critically low 9.5-13.5 [facility] Comment on above: Performed By: #### C MP, TSH, T4 #### [facility] [address] [address] [address] Mike Alcocer PLT 341 103/ul Normal 150-450 [facility] Comment on above: Performed By: #### C MP, TSH, T4 #### [facility] [address] [place] [address] Dr. Mike Alcocer RBC 4.67 106/ul Normal 4.20-5.40 [facility] Comment on above: Performed By: #### C MP, TSH, T4 #### [facility] [address] [place] [address] Dr. Mike Alcocer WBC 7.2 103/ul Normal 4.0-11.0 [facility] Comment on above: Performed By: #### C MP, TSH, T4 #### [facility] [address] [place] [address] Dr. Mike Alcocer PROF 14(COMP METB)on 022 Albumin [Mass/Vol] 3.9 g/dL Normal 3.4-5.0 [facility] Comment on above: Performed By: #### C MP, TSH, T4 #### [facility] [address] [place] [address] Dr. Mike Alcocer Albumin/Globulin [Mass ratio] 1.1 {ratio} Normal [facility] Comment on above: Performed By: #### C MP, TSH, T4 #### [facility] [address] [place] [address] Dr. Mike Alcocer ALP [Catalytic activity/Vol] 115 U/L Normal 46-116 [facility] Comment on above: Performed By: #### C MP, TSH, T4 #### [facility] [address] [place] [address] Dr. Mike Alcocer ALT [Catalytic activity/Vol] 28 U/L Normal 14-59 [facility] Comment on above: Performed By: #### C MP, TSH, T4 #### [facility] [address] [place] [address] Dr. Mike Alcocer Anion gap [Moles/Vol] 14.8 mmol/L Normal [facility] Comment on above: Performed By: #### C MP, TSH, T4 #### [facility] [address] [address] [address] Mike Alcocer AST [Catalytic activity/Vol] 19 U/L Normal 15-37 [facility] Comment on above: Performed By: #### C MP, TSH, T4 #### [facility] [address] [address] [address] Mike Alcocer Bilirubin [Mass/Vol] 0.4 mg/dL Normal 0.2-1.3 [facility] Comment on above: Performed By: #### C MP, TSH, T4 #### [facility] [address] [address] [address] Mike Alcocer Calcium [Mass/Vol] 9.1 mg/dL Normal 8.5-10.1 [facility] Comment on above: Performed By: #### C MP, TSH, T4 #### [facility] [address] [place] [address] Dr. Mike Alcocer Chloride [Moles/Vol] 102 mmol/L Normal 98-107 [facility] Comment on above: Performed By: #### C MP, TSH, T4 #### [facility] [address] [place] [address] Dr. Mike Alcocer CO2 [Moles/Vol] 25.8 mmol/L Normal 22.0-30.0 [facility] Comment on above: Performed By: #### C MP, TSH, T4 #### [facility] [address] [place] [address] Dr. Mike Alcocer Creatinine [Mass/Vol] 0.84 mg/dL Normal 0.52-1.04 [facility] Comment on above: Performed By: #### C MP, TSH, T4 #### [facility] [address] [place] [address] Dr. Mike Alcocer EGFR-AF SWISS >60 Normal >=60 [facility] Comment on above: Performed By: #### C MP, TSH, T4 #### [facility] [address] [place] [address] Dr. Mike Alcocer EGFR-NON AF SWISS >60 Normal >=60 [facility] Comment on above: Performed By: #### C MP, TSH, T4 #### [facility] [address] [address] [address] Mike Alcocer Globulin (S) [Mass/Vol] 3.4 g/dL Normal [facility] Comment on above: Performed By: #### C MP, TSH, T4 #### [facility] [address] [address] [address] Mike Alcocer Glucose [Mass/Vol] 98 mg/dL Normal 74-106 [facility] Comment on above: Performed By: #### C MP, TSH, T4 #### [facility] [address] [place] [address] Dr. Mike Alcocer Potassium [Moles/Vol] 3.6 mmol/L Normal 3.4-5.0 [facility] Comment on above: Performed By: #### C MP, TSH, T4 #### [facility] [address] [place] [address] Dr. Mike Alcocer Protein [Mass/Vol] 7.3 g/dL Normal 6.1-8.2 [facility] Comment on above: Performed By: #### C MP, TSH, T4 #### [facility] [address] [place] [address] Dr. Mike Alcocer Sodium [Moles/Vol] 139 mmol/L Normal 137-145 [facility] Comment on above: Performed By: #### C MP, TSH, T4 #### [facility] [address] [place] [address] Dr. Mike Alcocer Urea nitrogen [Mass/Vol] 7.0 mg/dL Normal 7.0-18.0 [facility] Comment on above: Performed By: #### C MP, TSH, T4 #### [facility] [address] [place] [address] Dr. Mike Alcocer Urea nitrogen/Creatinine [Mass ratio] 8.3 mg/mg Normal [facility] Comment on above: Performed By: #### C MP, TSH, T4 #### [facility] [address] [place] [address] Dr. Mike Alcocer T4on 02-14-2022 T4 [Mass/Vol] 7.80 ug/dL Normal 5.53-11.00 [facility] Comment on above: Performed By: #### C MP, TSH, T4 #### [facility] [address] [place] [address] Dr. Mike Alcocer TSHon 02-14-2022 TSH 1.071 uIU/mL Normal 0.470-4.680 [facility] Comment on above: Performed By: #### C MP, TSH, T4 #### [facility] [address] [address] [address] Mike Alcocer TSH RANGE SEE BELOW Normal [facility] Comment on above: Result Comment: <0.3 4 UIU/ml HYPERTHYROID 0.34-5.60 UIU/ml EUTHYROID >5.60 UIU/ml HYPOTHYROID Performed By: #### C MP, TSH, T4 #### [facility] [address] [place] [address] Dr. Mike Alcocer CULTURE THROATon 11-16-2021 CULTURE THROAT Isolate 1 Haemophilus influenzae Heavy growth of Normal [facility] Comment on above: Performed By: #### C MP, TSH, T4 #### [facility] [address] [place] [address] Dr. Mike Alcocer [facility]25 SARS-CoV-2 (COVID-19) RNA RUSTY+probe Ql (Unsp spec) Not detected Normal NOT DETECTED [facility] Comment on above: Result Comment: This test is not yet approved or cleared by the [place] FDA. When there are no FDA-approved or cleared tests available, and other criteria are met, FDA can make tests available under an emergency access mechanism called an Emergency Use Authorization (EUA). The EUA for this test is supported by the [place] of Health and Human Service's (HHS's) declaration [...] SARS-CoV-2. Performed By: #### C VDTBH #### [facility] [address], [place] [address] Dr. Mike Alcocer STREPT SCREENon 11-16-2021 STREP SCREEN A Negative Normal NEGATIVE [facility] Comment on above: Performed By: #### S SCRN, THRTCX #### [facility] [address], [place] [address] Dr. Mike Alcocer Encounters Encounter Date Encounter Type Care Provider Facility Start: 12-16-2023 End: 12-16-2023 ambulatory KRAIG MARK Not Available Start: 11-25-2023 End: 11-25-2023 ambulatory JOHN FREY [...] 1 Payers Date Payer Category Payer Medicaid [id number] 2000 Unknown [id number] .16.84 [id number] 2000 Unknown [id number] .16.84 [id number] 1999 Unknown [id number] .16.84 [id number] 1999 Unknown [id number] 1999 Unknown [id number] .16.84 [id number] 1999 Unknown [id number] 2.16.84 [id number] 1999 Unknown [id number] 1999 Unknown [id number] 1959 Self-pay 1960 Unknown [id number] 1960 Unknown [id number] Clinical Note 05-23-2022 Note Date & Type Note Facility 05-23-2022 Note PROCEDURE: XR SHOULD ER LT 2V or > COMPARISON: None. HISTORY: Pain of left shoulder joint FINDINGS: BONES:No fracture, acute abnormality, or significant arthropathy. SOFT TISSUES:Negative. No visible soft tissue swelling. EFFUSION:None visible. OTHER: Negative. IMPRESSION: No acute abnormality Electronically authenticated by: DWIGHT FOY Date: 2022-05-23 17:19 [facility] Summary Purpose Family History No Family History Records FoundNo Family History Records Found Advance Directives No Advanced Directives Records FoundNo Advanced Directives Records Found Additional Source Comments INFORMATION SOURCE (unrecogn ized section and content) DATE CREATED AUTHOR 10/08/[address] [facility] DATE CREATED AUTHOR AUTHOR'S BRIANA REYNOSO 12/17/2023 [facility] EPIC FOR RECORDS PERTAINING [...] BE BASED ON THE PRIMARY CLINICAL RECORDS. [facility] [employer] provides no warranty or guarantee of the accuracy or completeness of information in this document.
[2023-12-29 01:32] VITALS: BP 117/71; PULSE 109; TEMP 36.4
[2023-12-29 01:36] LABS: Bilirubin Urine NEGATIVE (NEGATIVE); Blood Urine NEGATIVE (NEGATIVE); Clarity Urine CLEAR (CLEAR); Color Urine DK. ORANGE (YELLOW); Glucose Urine UA NEGATIVE (NEGATIVE); Ketones Urine 15 mg/dL (NEGATIVE); Leukocyte Esterase Urine NEGATIVE (NEGATIVE); Nitrite Urine POSITIVE (NEGATIVE); Protein Urine 30 mg/dL (NEG/TRACE); Specific Gravity Urine >=1.030 (1.005-1.025); pH Urine 6.5 (5.0-9.0)
[2023-12-29 01:37] LABS: Urine Microscopic Indicated YES
[2023-12-29 01:45] LABS: RBC Urine 0-2 #/HPF (0-2)
[2023-12-29 01:46] LABS: Bacteria Urine MODERATE #/HPF (NONE SEEN); Cast Seen? NONE SEEN #/LPF (NONE SEEN); Crystals Seen? None Seen #/HPF (None Seen); Mucus Urine SMALL (NONE SEEN); Squamous Epithelial Cell Urine MANY #/LPF (NONE/RARE); Urine Culture Indicated YES
[2023-12-29 02:43] VITALS: BP 106/68; PULSE 100; RESP 16; TEMP 36.7
--- NOTE | 2023-12-29 02:48 | PC.NURSE ---
Reviewed orders and POC with Pt and family. Pt VU. Reports she is prone to UTI's and had some valerie of surgical procedure on her ureters and or bladder where she thinks they placed a valve or stent but Pt was young and she is unsure. Pt's grandma believes she had an issue with ureter valves. Pt moved to room 252. EFM dc'd in 250 and cont in 252. Pt's grandma and fiancee remain at bedside.
[2023-12-29] MEDS: 0.9 % SODIUM CHLORIDE 1,000 ML 500 ML IV (03:19)
[2023-12-29] MEDS: CEFTRIAXONE 2,000 MG in 0.9 % SODIUM CHLORIDE 100 ML 200 MG IV (03:20)
[2023-12-29] MEDS: ACETAMINOPHEN 325 MG TABLET 650 MG PO (03:28)
[2023-12-29 03:36] LABS: Basophils Percent Auto 0.3 % (0.2-2.0); Eosinophils Percent Auto 0.2 % (0.9-7.0); Hematocrit 36.9 % (36.0-48.0); Hemoglobin 12.4 g/dL (12.0-16.0); Immature Granulocytes Abs Auto 0.19 10^3/uL (0.00-0.03); Immature Granulocytes Pct Auto 1.5 % (0.0-0.5); Lymphocytes Absolute Auto 1.7 10^3/uL (1.2-3.8); Lymphocytes Percent Auto 12.6 % (20.5-60.0); Mean Corpuscular HGB Conc 33.6 g/dL (29.9-35.2); Mean Corpuscular Hemoglobin 31.1 pg (26.7-34.0); Mean Corpuscular Volume 92.5 fL (81.0-99.0); Mean Platelet Volume 9.3 fL (9.5-13.5); Monocytes Absolute Auto 0.6 10^3/uL (0.3-0.8); Monocytes Percent Auto 4.9 % (1.7-12.0); Neutrophils Absolute Auto 10.5 10^3/uL (1.4-6.5); Neutrophils Percent Auto 80.5 % (43.0-75.0); Platelet Count 254 10^3/uL (150-450); Red Blood Count 3.99 10^6/uL (4.20-5.40); Red Cell Distribution Width 12.3 % (11.0-15.0); White Blood Count 13.1 10^3/uL (4.0-11.0)
[2023-12-29 03:49] LABS: Alanine Aminotransferase 19 U/L (14-59); Albumin Globulin Ratio 0.8; Albumin Level 2.7 g/dL (3.4-5.0); Alkaline Phosphatase 126 U/L (46-116); Anion Gap 9.6; Aspartate Amino Transferase 12 U/L (15-37); BUN Creatinine Ratio 15.8; Bilirubin Total 0.5 mg/dL (0.2-1.0); Calcium 8.7 mg/dL (8.5-10.1); Carbon Dioxide 23.9 mmol/L (21.0-32.0); Chloride 107 mmol/L (98-107); Estimated GFR (African America >60 (>=60); Estimated GFR (Non-African Ame >60 (>=60); Globulin 3.6 g/dL; Glucose 87 mg/dL (74-106); Potassium 3.5 mmol/L (3.5-5.1); Sodium 137 mmol/L (136-145); Total Protein 6.3 g/dL (6.4-8.2)
[2023-12-29 06:39] VITALS: BP 98/55; PULSE 85
[2023-12-29] MEDS: CALCIUM CARBONATE 500 MG (200MG ELEMENTAL) TAB CHEW PO (07:01)
[2023-12-29 08:20] VITALS: BP 109/53; PULSE 93
[2023-12-29 08:27] VITALS: RESP 16; TEMP 37
== END 2023-12-29 08:39 | disposition home or self-care (01) ==
PROVIDERS: Admitting Provider Obstetrics & Gynecology; PCP Family Medicine; Visit Provider Obstetrics & Gynecology
DX: O26.893 Other specified pregnancy related conditions, third trimester (principal); M54.9 Dorsalgia, unspecified; R10.9 Unspecified abdominal pain; R25.2 Cramp and spasm; Z3A.30 30 weeks gestation of pregnancy
CPT/HCPCS: 36415; 59025; 80053; 81001; 85025; 87086; 96365; G0378; G0379; J0696

== ENCOUNTER 2023-12-30 14:33 | Outpatient (OUT) | payer OTHER, MEDICAID, SELFPAY ==
--- NOTE | 2023-12-30 14:38 | US_ITS ---
[address] [address] Patient Name: BUBBA LARIOS MRN: [id number] date: 2000 Sex: F Assigned Patient Location: [facility] Current Patient Location: [facility] Accession/Order Number: [id number] Exam Date: 12/30/2023 14:37 Report Date: 12/30/2023 15:19 At the request of: KRAIG MARK Procedure: US OB growth EXAMINATION: US OB growth HISTORY: LGA COMPARISON: Ultrasound OB anatomy to 624 FINDINGS: Heart Rate: 138.0 bpm Number: 1.0 Position: CEPHALIC Amniotic Fluid Volume: 15.4 cm Maximum Vertical Pocket: 4.9 cm BIOMETRY: BPD: 7.5 cm cm; 30 weeks 2 days HC: 28.3 cmcm; 31 weeks 0 days AC: 26.9 cm cm; 31 weeks 0 days FL: 5.8 cm cm; 30 weeks 2 days EFW: 1629.3 grams; 48% FL/AC: 21.5 FL/BPD: 76.8 HC/AC: 1.1 GESTATIONAL AGE: Age by EDC: 30 weeks 3 days LUIS by EDC: 03/06/2024 Age by US: 30 weeks 5 days LUIS by US: 03/04/2024 US/US OB growth IMPRESSION: 1. Single live intrauterine with growth detailed above. Electronically authenticated by: CAMMY ARZOLA Date: 12/30/2023 15:19
--- OUTSIDE RECORDS SUMMARY | 2023-12-30 14:43 | XMS_ITS | CCD ---
Author Name Unknown Address [address] [facility] [address] [place] [address] Organization [facility] Care Team Providers Care Maintenance Apprentice Name Role Phone AISHA, KEL Primary Care Unavailable LILIANE, DR MURCIA Admitting Unavailable LILIANE, DR MURCIA Attending Unavailable HOUSE, DR MURCIA Primary Care Unavailable BLAYNE, ADDIE Admitting Unavailable BLAYNE, ADDIE Attending Unavailable BLAYNE, ADDIE Consulting Unavailable AISHA, KEL Primary Care Unavailable ANAMARIA, DR GAMBOA Admitting Unavailable HAY, DR GAMBOA Attending Unavailable HAY, DR GAMBOA Consulting Unavailable HOUSE, DR DVIINA Sierraitting Unavailable HOUSE, DR MURCIA Attending Unavailable HOUSE, DR MURCIA Primary Care Unavailable HOUSE, DR MURCIA Consulting Unavailable HOUSE, DR DIVINA Sierraitting Unavailable HOUSE, DR MURCIA Attending Unavailable HOUSE, DR MURCIA Primary Care Unavailable CAMBRIDGE, DR DWIGHT Kingsley Consulting Unavailable HOUSE, DR [...] te Episodic/Chronic Other aftercare (1 source) Other director long term care (current) drug therapy; Translations: [OTH SENIOR CARE CURRENT DRUG THERAPY] Onset: 11-19-2021 Episodic Other [...] Trimethoprim/Sulfame thoxazole <=20 S F Normal [facility] Comment on above: Performed By: #### U RCX #### [facility] [address] [place] [address] Dr. Mike Alcocer ER URINE PROFILEon 2 Bilirubin Ql (U) Negative Normal NEGATIVE [facility] Comment on above: Performed By: #### U MICRO, ERUR, PREGU #### [facility] [address] [place] [address] Dr. Mike Alcocer Clarity (U) CLEAR Normal CLEAR [facility] Comment on above: Performed By: #### U MICRO, ERUR, PREGU #### [facility] [address] [place] [address] Dr. Mike Alcocer Color (U) LT. YELLOW Normal YELLOW [facility] Comment on above: Performed By: #### U MICRO, ERUR, PREGU #### [facility] [address] [place] [address] Dr. Mike NOVAKAHD A micrscopic examination will be performed if indicated. Normal [facility] Comment on above: Performed By: #### U MICRO, ERUR, PREGU #### [facility] [address] [address] [address] Mike Alcocer Glucose Ql (U) Negative Normal NEGATIVE [facility] Comment on above: Performed By: #### U MICRO, ERUR, PREGU #### [facility] [address] [address] [address] Mike Alcocer Hemoglobin Ql (U) LARGE Abnormal NEGATIVE [facility] Comment on above: Performed By: #### U MICRO, ERUR, PREGU #### [facility] [address] [address] [address] Mike Alcocer Ketones Ql (U) Negative Normal NEGATIVE [facility] Comment on above: Performed By: #### U MICRO, ERUR, PREGU #### [facility] [address] [address] [address] Mike Alcocer LEUKOCYTES Negative Normal NEGATIVE [facility] Comment on above: Performed By: #### U MICRO, ERUR, PREGU #### [facility] [address] [address] [address] Mike Alcocer Nitrite Ql (U) Positive Abnormal NEGATIVE [facility] Comment on above: Performed By: #### U MICRO, ERUR, PREGU #### [facility] [address] [address] [address] Mike Alcocer pH (U) 6.5 [pH] Normal 5-9 [facility] Comment on above: Performed By: #### U MICRO, ERUR, PREGU #### [facility] [address] [address] [address] Mike Alcocer SPEC GRAVITY 1.025 Normal 1.005-<=1.025 [facility] Comment on above: Performed By: #### U MICRO, ERUR, PREGU #### [facility] [address] [address] [address] Mike Alcocer UA PROTEIN Negative Normal NEGATIVE/ TRACE [facility] Comment on above: Performed By: #### U MICRO, ERUR, PREGU #### [facility] [address] [address] [address] Mike Alcocer UR MICRO IND INDICATED Normal [facility] Comment on above: Performed By: #### U MICRO, ERUR, PREGU #### [facility] [address] [address] [address] Mike Alcocer Urobilinogen Qn (U) 0.2 {Molly'U}/dL Normal 0.2 - 1. 0 [facility] Comment on above: Performed By: #### U MICRO, ERUR, PREGU #### [facility] [address] [address] [address] Mike Alcocer URon 05-21-2022 , QUAL Negative Normal NEGATIVE [facility] Comment on above: Performed By: #### U MICRO, ERUR, PREGU #### [facility] [address] [place] [address] Dr. Mike Alcocer URINE MICROSCOPIC ONLYon BACTERIA MODERATE Abnormal NONE SEEN [facility] Comment on above: Performed By: #### U MICRO, ERUR, PREGU #### [facility] [address] [address] [address] Mike Alcocer Bacteria identified Cx Nom (U) INDICATED Normal [facility] Comment on above: Performed By: #### U MICRO, ERUR, PREGU #### [facility] [address] [address] [address] Mike Alcocer CAST NONE SEEN Normal NONE SEEN [facility] Comment on above: Performed By: #### U MICRO, ERUR, PREGU #### [facility] [address] [address] [address] Mike Alcocer Crystals LM Nom (Urine sed) NONE SEEN Normal NONE SEEN [facility] Comment on above: Performed By: #### U MICRO, ERUR, PREGU #### [facility] [address] [address] [address] Mike Alcocer Epithelial cells LM Ql (Urine sed) FEW Abnormal NONE SEEN /RARE [facility] Comment on above: Performed By: #### U MICRO, ERUR, PREGU #### [facility] [address] [place] [address] Dr. Mike Alcocer MUCOUS NONE SEEN Normal NONE SEEN [facility] Comment on above: Performed By: #### U MICRO, ERUR, PREGU #### [facility] [address] [place] [address] Dr. Mike Alcocer RBC 10-20 Abnormal 0-2 [facility] Comment on above: Performed By: #### U MICRO, ERUR, PREGU #### [facility] [address] [place] [address] Dr. Mike Alcocer WBC 2-5 Abnormal NONE SEEN [facility] Comment on above: Performed By: #### U MICRO, ERUR, PREGU #### [facility] [address] [place] [address] Dr. Mike Alcocer CBC AUTO DIFFon 02-14-2022 BASO # 0.1 103/ul Normal 0.0-0.1 [facility] Comment on above: Performed By: #### C MP, TSH, T4 #### [facility] [address] [place] [address] Dr. Mike Alcocer Basophils/100 WBC (Bld) 0.7 % Normal 0.2-2.0 [facility] Comment on above: Performed By: #### C MP, TSH, T4 #### [facility] [address] [place] [address] Dr. Mike Alcocer EO # 0.3 103/ul Normal 0.0-0.7 [facility] Comment on above: Performed By: #### C MP, TSH, T4 #### [facility] [address] [place] [address] Dr. Mike Alcocer Eosinophils/100 WBC (Bld) 3.5 % Normal 0.9-7.0 [facility] Comment on above: Performed By: #### C MP, TSH, T4 #### [facility] [address] [place] [address] Dr. Mike Alcocer Erythrocyte distribution width (RBC) [Ratio] 13.2 % Normal 11.0-15.0 [facility] Comment on above: Performed By: #### C MP, TSH, T4 #### [facility] [address] [address] [address] Mike Alcocer Hematocrit (Bld) [Volume fraction] 40.1 % Normal 36.0-48.0 [facility] Comment on above: Performed By: #### C MP, TSH, T4 #### [facility] [address] [place] [address] Dr. Mike Alcocer Hemoglobin (Bld) [Mass/Vol] 13.7 g/dL Normal 12.0-16.0 [facility] Comment on above: Performed By: #### C MP, TSH, T4 #### [facility] [address] [place] [address] Dr. Mike Alcocer IG # 0.03 10e3/ul Normal 0.00-0.03 [facility] Comment on above: Performed By: #### C MP, TSH, T4 #### [facility] [address] [place] [address] Dr. Mike Alcocer IG % 0.4 % Normal 0.0-0.5 [facility] Comment on above: Performed By: #### C MP, TSH, T4 #### [facility] [address] [place] [address] Dr. Mike Alcocer LYMPH # 2.5 103/ul Normal 1.2-3.8 [facility] Comment on above: Performed By: #### C MP, TSH, T4 #### [facility] [address] [place] [address] Dr. Mike Alcocer Lymphocytes/100 WBC (Bld) 34.6 % Normal 20.5-60.0 [facility] Comment on above: Performed By: #### C MP, TSH, T4 #### [facility] [address] [place] [address] Dr. Mike Alcocer MANUAL DIFF REQ NO Normal [facility] Comment on above: Performed By: #### C MP, TSH, T4 #### [facility] [address] [place] [address] Dr. Mike Alcocer MCH (RBC) [Entitic mass] 29.3 pg Normal 26.7-34.0 [facility] Comment on above: Performed By: #### C MP, TSH, T4 #### [facility] [address] [place] [address] Dr. Mike Alcocer MCHC (RBC) [Mass/Vol] 34.2 g/dL Normal 29.9-35.2 [facility] Comment on above: Performed By: #### C MP, TSH, T4 #### [facility] [address] [place] [address] Dr. Mike Alcocer MCV (RBC) [Entitic vol] 85.9 fL Normal 81.0-99.0 [facility] Comment on above: Performed By: #### C MP, TSH, T4 #### [facility] [address] [place] [address] Dr. Mike Alcocer MONO # 0.3 103/ul Normal 0.3-0.8 [facility] Comment on above: Performed By: #### C MP, TSH, T4 #### [facility] [address] [place] [address] Dr. Mike Alcocer Monocytes/100 WBC (Bld) 3.5 % Normal 1.7-12.0 [facility] Comment on above: Performed By: #### C MP, TSH, T4 #### [facility] [address] [place] [address] Dr. Mike Alcocer NEUT # 4.2 103/ul Normal 1.4-6.5 [facility] Comment on above: Performed By: #### C MP, TSH, T4 #### [facility] [address] [place] [address] Dr. Mike Alcocer Neutrophils/100 WBC (Bld) 57.3 % Normal 43.0-75.0 [facility] Comment on above: Performed By: #### C MP, TSH, T4 #### [facility] [address] [place] [address] Dr. Miek Alcocer Platelet mean volume (Bld) [Entitic vol] 9.2 fL Critically low 9.5-13.5 [facility] Comment on above: Performed By: #### C MP, TSH, T4 #### [facility] [address] [address] [address] Mike Alcocer PLT 341 103/ul Normal 150-450 [facility] Comment on above: Performed By: #### C MP, TSH, T4 #### [facility] [address] [place] [address] Dr. Mike Alcocer RBC 4.67 106/ul Normal 4.20-5.40 [facility] Comment on above: Performed By: #### C MP, TSH, T4 #### [facility] [address] [place] [address] Dr. Mike Alcocer WBC 7.2 103/ul Normal 4.0-11.0 [facility] Comment on above: Performed By: #### C MP, TSH, T4 #### [facility] [address] [place] [address] Dr. Mike Alcocer PROF 14(COMP METB)on 022 Albumin [Mass/Vol] 3.9 g/dL Normal 3.4-5.0 [facility] Comment on above: Performed By: #### C MP, TSH, T4 #### [facility] [address] [place] [address] Dr. Mike Alcocer Albumin/Globulin [Mass ratio] 1.1 {ratio} Normal [facility] Comment on above: Performed By: #### C MP, TSH, T4 #### [facility] [address] [place] [address] Dr. Mike Alcocer ALP [Catalytic activity/Vol] 115 U/L Normal 46-116 [facility] Comment on above: Performed By: #### C MP, TSH, T4 #### [facility] [address] [place] [address] Dr. Mike Alcocer ALT [Catalytic activity/Vol] 28 U/L Normal 14-59 [facility] Comment on above: Performed By: #### C MP, TSH, T4 #### [facility] [address] [place] [address] Dr. Mike Alcocer Anion gap [Moles/Vol] 14.8 mmol/L Normal [facility] Comment on above: Performed By: #### C MP, TSH, T4 #### [facility] [address] [address] [address] Mike Alcocer AST [Catalytic activity/Vol] 19 U/L Normal 15-37 [facility] Comment on above: Performed By: #### C MP, TSH, T4 #### [facility] [address] [address] [address] Mike Alcocer Bilirubin [Mass/Vol] 0.4 mg/dL Normal 0.2-1.3 [facility] Comment on above: Performed By: #### C MP, TSH, T4 #### [facility] [address] [address] [address] Mike Alcocer Calcium [Mass/Vol] 9.1 mg/dL Normal 8.5-10.1 [facility] Comment on above: Performed By: #### C MP, TSH, T4 #### [facility] [address] [place] [address] Dr. Mike Alcocer Chloride [Moles/Vol] 102 mmol/L Normal 98-107 [facility] Comment on above: Performed By: #### C MP, TSH, T4 #### [facility] [address] [place] [address] Dr. Mike Alcocer CO2 [Moles/Vol] 25.8 mmol/L Normal 22.0-30.0 [facility] Comment on above: Performed By: #### C MP, TSH, T4 #### [facility] [address] [place] [address] Dr. Mike Alcocer Creatinine [Mass/Vol] 0.84 mg/dL Normal 0.52-1.04 [facility] Comment on above: Performed By: #### C MP, TSH, T4 #### [facility] [address] [place] [address] Dr. Mike Alcocer EGFR-AF UKRAINIAN >60 Normal >=60 [facility] Comment on above: Performed By: #### C MP, TSH, T4 #### [facility] [address] [place] [address] Dr. Mike Alcocer EGFR-NON AF UKRAINIAN >60 Normal >=60 [facility] Comment on above: Performed By: #### C MP, TSH, T4 #### [facility] [address] [address] [address] Mike Alcocer Globulin (S) [Mass/Vol] 3.4 g/dL Normal [facility] Comment on above: Performed By: #### C MP, TSH, T4 #### [facility] [address] [address] [address] Mike Alcocer Glucose [Mass/Vol] 98 mg/dL Normal 74-106 [facility] Comment on above: Performed By: #### C MP, TSH, T4 #### [facility] [address] [place] [address] Dr. Mike Alcocer Potassium [Moles/Vol] 3.6 mmol/L Normal 3.4-5.0 [facility] Comment on above: Performed By: #### C MP, TSH, T4 #### [facility] [address] [place] [address] Dr. Mike Alcocer Protein [Mass/Vol] 7.3 g/dL Normal 6.1-8.2 [facility] Comment on above: Performed By: #### C MP, TSH, T4 #### [facility] [address] [place] [address] Dr. Mike Alcocer Sodium [Moles/Vol] 139 mmol/L Normal 137-145 [facility] Comment on above: Performed By: #### C MP, TSH, T4 #### [facility] [address] [place] [address] Dr. Mike Alcocer Urea nitrogen [Mass/Vol] 7.0 mg/dL Normal 7.0-18.0 [facility] Comment on above: Performed By: #### C MP, TSH, T4 #### [facility] [address] [place] [address] Dr. Mike Alcocer Urea nitrogen/Creatinine [Mass ratio] 8.3 mg/mg Normal [facility] Comment on above: Performed By: #### C MP, TSH, T4 #### [facility] [address] [place] [address] Dr. Mike Alcocer T4on 02-14-2022 T4 [Mass/Vol] 7.80 ug/dL Normal 5.53-11.00 [facility] Comment on above: Performed By: #### C MP, TSH, T4 #### [facility] [address] [place] [address] Dr. Mike Alcocer TSHon 02-14-2022 TSH 1.071 uIU/mL Normal 0.470-4.680 [facility] Comment on above: Performed By: #### C MP, TSH, T4 #### [facility] [address] [address] [address] Mike Alcocer TSH RANGE SEE BELOW Normal [facility] Comment on above: Result Comment: <0.3 4 UIU/ml HYPERTHYROID 0.34-5.60 UIU/ml EUTHYROID >5.60 UIU/ml HYPOTHYROID Performed By: #### C MP, TSH, T4 #### [facility] [address] [place] [address] Dr. Mike Alcocer CULTURE THROATon 11-16-2021 CULTURE THROAT Isolate 1 Haemophilus influenzae Heavy growth of Normal [facility] Comment on above: Performed By: #### C MP, TSH, T4 #### [facility] [address] [place] [address] Dr. Mike Alcocer Covid-19 PCR ([facility])on 10-25 SARS-CoV-2 (COVID-19) RNA RUSTY+probe Ql (Unsp spec) Not detected Normal NOT DETECTED [facility] Comment on above: Result Comment: This test is not yet approved or cleared by the [place] FDA. When there are no FDA-approved or cleared tests available, and other criteria are met, FDA can make tests available under an emergency access mechanism called an Emergency Use Authorization (EUA). The EUA for this test is supported by the [place] of Health and Human Service's (HHS's) declaration [...] SARS-CoV-2. Performed By: #### C VDTBH #### [facility] [address], [place] [address] Dr. Mike Alcocer STREPT SCREENon 11-16-2021 STREP SCREEN A Negative Normal NEGATIVE [facility] Comment on above: Performed By: #### S SCRN, THRTCX #### [facility] [address] [place], [place] [address] Dr. Mike Alcocer Encounters Encounter Date Encounter [...] 1 Payers Date Payer Category Payer Medicaid [id number] 1999 Unknown [id number] .16.84 [id number] 1999 Unknown [id number] .16.84 [id number] 1999 Unknown [id number] .16.84 [id number] 1999 Unknown [id number] 1999 Unknown [id number] .16.84 [id number] 1999 Unknown [id number] 2.16.84 [id number] 1999 Unknown [id number] 1999 Unknown [id number] 1959 Self-pay 1960 Unknown [id number] 1960 Unknown [id number] Clinical Note 05-23-2022 Note Date & Type Note Facility 05-23-2022 Note PROCEDURE: XR SHOULD ER LT 2V or > COMPARISON: None. HISTORY: Pain of left shoulder joint FINDINGS: BONES:No fracture, acute abnormality, or significant arthropathy. SOFT TISSUES:Negative. No visible soft tissue swelling. EFFUSION:None visible. OTHER: Negative. IMPRESSION: No acute abnormality Electronically authenticated by: DWIGHT FOY Date: 2022-05-23 17:19 [facility] Summary Purpose Family History No Family History Records FoundNo Family History Records Found Advance Directives No Advanced Directives Records FoundNo Advanced Directives Records Found Additional Source Comments INFORMATION SOURCE (unrecogn ized section and content) DATE CREATED AUTHOR 10/08/2022 [facility] DATE CREATED AUTHOR AUTHOR'S BRIANA REYNOSO 12/17/2023 [facility] Special[facility] EPIC FOR RECORDS PERTAINING TO [...] BE BASED ON THE PRIMARY CLINICAL RECORDS. [facility] [employer] provides no warranty or guarantee of the accuracy or completeness of information in this document.
== END 2023-12-30 14:34 | disposition home or self-care (01) ==
LOC: NOMS 14:34
PROVIDERS: PCP Family Medicine; Visit Provider Obstetrics & Gynecology
DX: O36.63X1 Maternal care for excessive fetal growth, third trimester, fetus 1 (principal); Z3A.30 30 weeks gestation of pregnancy
CPT/HCPCS: 76816

== ENCOUNTER 2024-02-09 08:00 | Outpatient (OUT) | payer OTHER, MEDICAID, SELFPAY ==
--- NOTE | 2024-02-09 08:02 | US_ITS ---
[address] [address] Patient Name: BUBBA LARIOS MRN: [id number] date: 2000 Sex: F Assigned Patient Location: [facility] Current Patient Location: [facility] Accession/Order Number: [id number] Exam Date: 02/09/2024 08:03 Report Date: 02/09/2024 09:05 At the request of: KRAIG MARK Procedure: US OB growth EXAMINATION: US OB growth HISTORY: SIZE INCONSISTENT WITH DATES COMPARISON: No relevant comparison available. FINDINGS: Heart Rate: 131.0 bpm Amniotic Fluid Volume: 15.0 cm Number: 1.0 Position: Cephalic presentation, longitudinal lie Maximum Vertical Pocket: 4.1 cm cm 2.8 cm cm 3.6 cm cm 4.5 cm cm BIOMETRY: BPD: 8.6 cm cm; 34 weeks 6 days; 20% HC: 32.2 cmcm; 36 weeks 2 days , 22% AC: 32.3 cm cm; 36 weeks 1 days, 50% FL: 7.0 cm cm; 35 weeks 5 days; 32.3 % % EFW: 2804.0 grams, 6 lbs. 3 oz., 42% FL/AC: 21.6 FL/BPD: 80.8 HC/AC: 1.0 GESTATIONAL AGE: Age by EDC: 36 weeks 2 days LUIS by EDC: 03/06/2024 Age by US: 35 weeks 5 days LUIS by US: 03/10/2024 US/US OB growth IMPRESSION: Normal interval growth Electronically authenticated by: DWIGHT FOY Date: 02/09/2024 09:05
--- OUTSIDE RECORDS SUMMARY | 2024-02-09 08:03 | XMS_ITS | CCD ---
Author Name Unknown Address [address] [place] [address] Organization [facility] Care Team Providers Care Full Stack Php Developer Name Role Phone AISHA, KEL Primary Care Unavailable LILIANE, DR MURCIA Admitting Unavailable LILIANE, DR MURCIA Attending Unavailable LILIANE, DR MURCIA Primary Care Unavailable BLAYNE, ADDIE Admitting Unavailable BLAYNE, ADDIE Attending Unavailable BLAYNE, ADDIE Consulting Unavailable AISHA, KEL Primary Care Unavailable ANAMARIA, DR GAMBOA Admitting Unavailable ANAMARIA, DR GAMBOA Attending Unavailable ANAMARIA, DR GAMBOA Consulting Unavailable LILIANE, DR MURCIA Admitting Unavailable LILIANE, DR MURCIA Attending Unavailable LILIANE, DR MURCIA Primary Care Unavailable LILIANE, DR MURCIA Consulting Unavailable LILIANE, DR HAY Sierraitting Unavailable LILIANE, DR MURCIA Attending Unavailable LILIANE, DR MURCIA Primary Care Unavailable DANII, DR DWIGHT Kingsley Consulting Unavailable HOUSE, DR MURCIA Consulting Unavailable Hay Momin MD Primary Care Provider JOANA FREY Attending Unavailable JAS, KRAIG Attending Unavailable TK, JOANA Attending Unavailable JAS, KRAIG Attending Unavailable TK, JOANA Attending Unavailable JAS, KRAIG Attending Unavailable TK, JOANA Attending Unavailable Medications Current Medications Medication Drug Class(es) Dates Sig (Normalized) Sig (Original) 12 hr buPROPion hydrochloride 150 mg extended release oral tablet (1 source) Aminoketone Start: 12-02-2023 End: 03-01-2024 buPROPion SR (Wellbutrin SR) 150 MG 12 hr tablet Indications: Anxiety with depression Take 1 tablet (150 mg) by mouth in the morning. Take 1 tablet daily for 3 days, then take 1 tablet daily for 4 days. Quit smoking on day 7 and continue to take medication twice daily.. 90 tablet 0 12/02/2023 03/01/2024 Active cephalexin 500 mg oral capsule (1 source) Cephalosporin Antibacterial Start: 12-29-2023 take 1 capsule by mouth in the morning cephalexin (Keflex) 500 MG capsule Take 500 mg by mouth in the morning and 500 mg before bedtime. 0 12/29/2023 Active ondansetron 4 mg disintegrating oral tablet (1 source) Serotonin-3 Receptor Antagonist Start: 08-01-2023 take 1 tablet by mouth every eight hours as needed ondansetron ODT (Zofran-ODT) 4 MG disintegrating tablet Take 4 mg by mouth every 8 (eight) hours if needed. 0 08/01/2023 Active MV-Min-Fe Fum-FA-DHA ( 1 PO) (1 source) MV-Min- Fe Fum-FA-DHA ( 1 PO) Take 1 each by mouth in the morning. 0 Active Problems Active Problems Problem Classification Problem Date Documented Da te Episodic/Chronic Mood disorders (1 source) Bipolar disorder, unspecified; Translations: [BIPOLAR DISORDER UNSPECIFIED] Onset: 11-19-2021 Chronic Other and delivery including normal (1 source) Third trimester ; Translations: [Encounter for supervision of normal , unspecified, third trimester] 12-25-2023 Episodic Substance-related disorders (1 source) Nicotine dependence, cigarettes, uncomplicated; Translations: [NICOTINE DEPEND CIGARETTES UNCOMP] Onset: 05-22-2022 Chronic Unclassified (1 source) CONTACT W/AND (SUSP) EXPOS COVID-19; Translations: [CONTACT W/AND (SUSP) EXPOS COVID-19] Onset: 11-19-2021 Past or Other Problems Problem Classification Problem Date Documented Da te Episodic/Chronic Other aftercare (1 source) Other technician terminal and repeater (current) drug therapy; Translations: [OTH RETIREMENT CURRENT DRUG THERAPY] Onset: 11-19-2021 Episodic Other [...] Name Value Interpretation Reference Range Facil ity Urinalysis macro (dipstick) panel (U)on 12-30-2023 Bilirubin, UA Negative Negative - 4(70) +++ mg/dL [facility] Blood, UA Negative Negative - 50 Zach/mcL [facility] Clarity, UA Clear [facility] re Color, UA Yellow [facility] Gl[facility], [facility]A Negative Negative - 1999(110) ++++ mg/dL [facility] Interpretation and review of laboratory results Normal [facility] Ketones, UA Negative Negative - 160(16) ++++ mg/dL [facility] Leukocytes, UA Negative Negative - 500+++ Nalini/mcL [facility] Nitrite, UA Negative Negative - Positive [facility] pH, UA 6.5 5 - 9 [facility] e Protein, UA Negative Negative - 1999(20) ++++ mg/dL [facility] Spec Grav, UA 1.010 1 - 1.03 [facility] Urobilinogen, UA 0.2 0.2 - 12 mg/dL [facility] CULTURE URINEon 05-23-2022 CULTURE URINE Isolate 1 Escherichia coli >100,000 cfu/mL of ORGANISM 1 Escherichia coli ANTIBIOTIC M.I.C RX STATUS Ampicillin 8 S F Ampicillin/Sulbacta m 4 S F Piperacillin/Tazoba ctam <=4 S F Cefazolin <=4 S F Ceftazidime <=1 S F Ceftriaxone <=1 S F Ertapenem <=0.5 S F Imipenem <=0.25 S F Amikacin <=2 S F Gentamicin <=1 S F Tobramycin <=1 S F Ciprofloxacin >=4 R F Levofloxacin >=8 R F Nitrofurantoin <=16 S F Trimethoprim/Sulfam ethoxazole <=20 S F Normal [facility] Comment on above: Performed By: #### U RCX #### [facility] [address] [place] [address] Dr. Mike Alcocer ER URINE PROFILEon 2 Bilirubin Ql (U) Negative Normal NEGATIVE [facility] Comment on above: Performed By: #### U MICRO, ERUR, PREGU #### [facility] [address] [address] [address] Mike Alcocer Clarity (U) CLEAR Normal CLEAR [facility] Comment on above: Performed By: #### U MICRO, ERUR, PREGU #### [facility] [address] [address] [address] Mike Alcocer Color (U) LT. YELLOW Normal YELLOW [facility] Comment on above: Performed By: #### U MICRO, ERUR, PREGU #### [facility] [address] [address] [address] Mike NOVAKAHD A micrscopic examination will be performed if indicated. Normal [facility] Comment on above: Performed By: #### U MICRO, ERUR, PREGU #### [facility] [address] [place] [address] Dr. Mike Alcocer Glucose Ql (U) Negative Normal NEGATIVE [facility] [place] [facility] Comment on above: Performed By: #### U MICRO, ERUR, PREGU #### [facility] [address] [place] [address] Dr. Mike Alcocer Hemoglobin Ql (U) LARGE Abnormal NEGATIVE [facility] Comment on above: Performed By: #### U MICRO, ERUR, PREGU #### [facility] [address] [place] [address] Dr. Mike Alcocer Ketones Ql (U) Negative Normal NEGATIVE [facility] [place] [facility] Comment on above: Performed By: #### U MICRO, ERUR, PREGU #### [facility] [address] [address] [address] Mike Alcocer LEUKOCYTES Negative Normal NEGATIVE [facility] Comment on above: Performed By: #### U MICRO, ERUR, PREGU #### [facility] [address] [address] [address] Mike Alcocer Nitrite Ql (U) Positive Abnormal NEGATIVE [facility] [place] [facility] Comment on above: Performed By: #### U MICRO, ERUR, PREGU #### [facility] [address] [place] [address] Dr. Mike Alcocer pH (U) 6.5 [pH] Normal 5-9 [facility] Comment on above: Performed By: #### U MICRO, ERUR, PREGU #### [facility] [address] [address] [address] Mike Alcocer SPEC GRAVITY 1.025 Normal 1.005-<=1.025 [facility] [place] Comment on above: Performed By: #### U MICRO, ERUR, PREGU #### [facility] [address] [address] [address] Mike Alcocer UA PROTEIN Negative Normal NEGATIVE/ TRACE [facility] Comment on above: Performed By: #### U MICRO, ERUR, PREGU #### [facility] [address] [address] [address] Mike Alcocer UR MICRO IND INDICATED Normal [facility] Comment on above: Performed By: #### U MICRO, ERUR, PREGU #### [facility] [address] [place] [address] Dr. Mike Alcocer Urobilinogen Qn (U) 0.2 {Molly'U}/dL Normal 0.2 - 1. 0 [facility] Comment on above: Performed By: #### U MICRO, ERUR, PREGU #### [facility] [address] [place] [address] Dr. Mike Alcocer URon 05-21-2022 , QUAL Negative Normal NEGATIVE [facility] Comment on above: Performed By: #### U MICRO, ERUR, PREGU #### [facility] [address] [place] [address] Dr. Mike Alcocer URINE MICROSCOPIC ONLYon BACTERIA MODERATE Abnormal NONE SEEN [facility] Comment on above: Performed By: #### U MICRO, ERUR, PREGU #### [facility] [address] [address] [address] Mike Alcocer Bacteria identified Cx Nom (U) INDICATED Normal [facility] Comment on above: Performed By: #### U MICRO, ERUR, PREGU #### [facility] [address] [place] [address] Dr. Mike Alcocer CAST NONE SEEN Normal NONE SEEN [facility] Comment on above: Performed By: #### U MICRO, ERUR, PREGU #### [facility] [address] [address] [address] Mike Alcocer Crystals LM Nom (Urine sed) NONE SEEN Normal NONE SEEN [facility] Comment on above: Performed By: #### U MICRO, ERUR, PREGU #### [facility] [address] [place] [address] Dr. Mike Alcocer Epithelial cells LM Ql (Urine sed) FEW Abnormal NONE SEEN /RARE [facility] Comment on above: Performed By: #### U MICRO, ERUR, PREGU #### [facility] [address] [place] [address] Dr. Mike Alcocer MUCOUS NONE SEEN Normal NONE SEEN [facility] Comment on above: Performed By: #### U MICRO, ERUR, PREGU #### [facility] [address] [place] [address] Dr. Mike Alcocer RBC 10-20 Abnormal 0-2 [facility] Comment on above: Performed By: #### U MICRO, ERUR, PREGU #### [facility] [address] [place] [address] Dr. Mike Alcocer WBC 2-5 Abnormal NONE SEEN [facility] Comment on above: Performed By: #### U MICRO, ERUR, PREGU #### [facility] [address] [place] [address] Dr. Mike Alcocer CBC AUTO DIFFon 02-14-2022 BASO # 0.1 103/ul Normal 0.0-0.1 [facility] Comment on above: Performed By: #### C MP, TSH, T4 #### [facility] [address] [place] [address] Dr. Mike Alcocer Basophils/100 WBC (Bld) 0.7 % Normal 0.2-2.0 [facility] Comment on above: Performed By: #### C MP, TSH, T4 #### [facility] [address] [place] [address] Dr. Mike Alcocer EO # 0.3 103/ul Normal 0.0-0.7 [facility] Comment on above: Performed By: #### C MP, TSH, T4 #### [facility] [address] [place] [address] Dr. Mike Alcocer Eosinophils/100 WBC (Bld) 3.5 % Normal 0.9-7.0 [facility] Comment on above: Performed By: #### C MP, TSH, T4 #### [facility] [address] [place] [address] Dr. Mike Alcocer Erythrocyte distribution width (RBC) [Ratio] 13.2 % Normal 11.0-15.0 [facility] Comment on above: Performed By: #### C MP, TSH, T4 #### [facility] [address] [place] [address] Dr. Mike Alcocer Hematocrit (Bld) [Volume fraction] 40.1 % Normal 36.0-48.0 [facility] Comment on above: Performed By: #### C MP, TSH, T4 #### [facility] [address] [place] [address] Dr. Mike Alcocer Hemoglobin (Bld) [Mass/Vol] 13.7 g/dL Normal 12.0-16.0 [facility] Comment on above: Performed By: #### C MP, TSH, T4 #### [facility] [address] [place] [address] Dr. Mike Alcocer IG # 0.03 10e3/ul Normal 0.00-0.03 [facility] Comment on above: Performed By: #### C MP, TSH, T4 #### [facility] [address] [place] [address] Dr. Mike Alcocer IG % 0.4 % Normal 0.0-0.5 [facility] Comment on above: Performed By: #### C MP, TSH, T4 #### [facility] [address] [place] [address] Dr. Mike Alcocer LYMPH # 2.5 103/ul Normal 1.2-3.8 [facility] Comment on above: Performed By: #### C MP, TSH, T4 #### [facility] [address] [place] [address] Dr. Mike Alcocer Lymphocytes/100 WBC (Bld) 34.6 % Normal 20.5-60.0 [facility] Comment on above: Performed By: #### C MP, TSH, T4 #### [facility] [address] [place] [address] Dr. Mike Alcocer MANUAL DIFF REQ NO Normal [facility] Comment on above: Performed By: #### C MP, TSH, T4 #### [facility] [address] [place] [address] Dr. Mike Alcocer MCH (RBC) [Entitic mass] 29.3 pg Normal 26.7-34.0 [facility] Comment on above: Performed By: #### C MP, TSH, T4 #### [facility] [address] [place] [address] Dr. Mike Alcocer MCHC (RBC) [Mass/Vol] 34.2 g/dL Normal 29.9-35.2 [facility] Comment on above: Performed By: #### C MP, TSH, T4 #### [facility] [address] [place] [address] Dr. Mike Alcocer MCV (RBC) [Entitic vol] 85.9 fL Normal 81.0-99.0 [facility] Comment on above: Performed By: #### C MP, TSH, T4 #### [facility] [address] [place] [address] Dr. Mike Alcocer MONO # 0.3 103/ul Normal 0.3-0.8 [facility] Comment on above: Performed By: #### C MP, TSH, T4 #### [facility] [address] [place] [address] Dr. Mike Alcocer Monocytes/100 WBC (Bld) 3.5 % Normal 1.7-12.0 [facility] Comment on above: Performed By: #### C MP, TSH, T4 #### [facility] [address] [place] [address] Dr. Mike Alcocer NEUT # 4.2 103/ul Normal 1.4-6.5 [facility] Comment on above: Performed By: #### C MP, TSH, T4 #### [facility] [address] [address] [address] Mike Alcocer Neutrophils/100 WBC (Bld) 57.3 % Normal 43.0-75.0 [facility] Comment on above: Performed By: #### C MP, TSH, T4 #### [facility] [address] [place] [address] Dr. Mike Alcocer Platelet mean volume (Bld) [Entitic vol] 9.2 fL Critically low 9.5-13.5 [facility] Comment on above: Performed By: #### C MP, TSH, T4 #### [facility] [address] [place] [address] Dr. Mike Alcocer PLT 341 103/ul Normal 150-450 [facility] Comment on above: Performed By: #### C MP, TSH, T4 #### [facility] [address] [place] [address] Dr. Mike Alcocer RBC 4.67 106/ul Normal 4.20-5.40 [facility] Comment on above: Performed By: #### C MP, TSH, T4 #### [facility] [address] [place] [address] Dr. Mike Alcocer WBC 7.2 103/ul Normal 4.0-11.0 [facility] Comment on above: Performed By: #### C MP, TSH, T4 #### [facility] [address] [place] [address] Dr. Mike Alcocer PROF 14(COMP METB)on 022 Albumin [Mass/Vol] 3.9 g/dL Normal 3.4-5.0 [facility] Comment on above: Performed By: #### C MP, TSH, T4 #### [facility] [address] [place] [address] Dr. Mike Alcocer Albumin/Globulin [Mass ratio] 1.1 {ratio} Normal [facility] Comment on above: Performed By: #### C MP, TSH, T4 #### [facility] [address] [place] [address] Dr. Mike Alcocer ALP [Catalytic activity/Vol] 115 U/L Normal 46-116 [facility] Comment on above: Performed By: #### C MP, TSH, T4 #### [facility] [address] [address] [address] Mike Alcocer ALT [Catalytic activity/Vol] 28 U/L Normal 14-59 [facility] Comment on above: Performed By: #### C MP, TSH, T4 #### [facility] [address] [address] [address] Mike Alcocer Anion gap [Moles/Vol] 14.8 mmol/L Normal [facility] Comment on above: Performed By: #### C MP, TSH, T4 #### [facility] [address] [address] [address] Mike Alcocer AST [Catalytic activity/Vol] 19 U/L Normal 15-37 [facility] Comment on above: Performed By: #### C MP, TSH, T4 #### [facility] [address] [address] [address] Mike Alcocer Bilirubin [Mass/Vol] 0.4 mg/dL Normal 0.2-1.3 [facility] Comment on above: Performed By: #### C MP, TSH, T4 #### [facility] [address] [address] [address] Mike Alcocer Calcium [Mass/Vol] 9.1 mg/dL Normal 8.5-10.1 [facility] Comment on above: Performed By: #### C MP, TSH, T4 #### [facility] [address] [address] [address] Mike Alcocer Chloride [Moles/Vol] 102 mmol/L Normal 98-107 [facility] Comment on above: Performed By: #### C MP, TSH, T4 #### [facility] [address] [address] [address] Mike Alcocer CO2 [Moles/Vol] 25.8 mmol/L Normal 22.0-30.0 [facility] Comment on above: Performed By: #### C MP, TSH, T4 #### [facility] [address] [address] [address] Mike Alcocer Creatinine [Mass/Vol] 0.84 mg/dL Normal 0.52-1.04 [facility] Comment on above: Performed By: #### C MP, TSH, T4 #### [facility] [address] [place] [address] Dr. Mike Alcocer EGFR-AF ALGERIAN >60 Normal >=60 [facility] Comment on above: Performed By: #### C MP, TSH, T4 #### [facility] [address] [place] [address] Dr. Mike Alcocer EGFR-NON AF ALGERIAN >60 Normal >=60 [facility] Comment on above: Performed By: #### C MP, TSH, T4 #### [facility] [address] [place] [address] Dr. Mike Alcocer Globulin (S) [Mass/Vol] 3.4 g/dL Normal [facility] Comment on above: Performed By: #### C MP, TSH, T4 #### [facility] [address] [place] [address] Dr. Mike Alcocer Glucose [Mass/Vol] 98 mg/dL Normal 74-106 [facility] Comment on above: Performed By: #### C MP, TSH, T4 #### [facility] [address] [place] [address] Dr. Mike Alcocer Potassium [Moles/Vol] 3.6 mmol/L Normal 3.4-5.0 [facility] Comment on above: Performed By: #### C MP, TSH, T4 #### [facility] [address] [place] [address] Dr. Mike Alcocer Protein [Mass/Vol] 7.3 g/dL Normal 6.1-8.2 [facility] Comment on above: Performed By: #### C MP, TSH, T4 #### [facility] [address] [place] [address] Dr. Mike Alcocer Sodium [Moles/Vol] 139 mmol/L Normal 137-145 [facility] Comment on above: Performed By: #### C MP, TSH, T4 #### [facility] [address] [place] [address] Dr. Mike Alcocer Urea nitrogen [Mass/Vol] 7.0 mg/dL Normal 7.0-18.0 [facility] Comment on above: Performed By: #### C MP, TSH, T4 #### [facility] [address] [place] [address] Dr. Mike Alcocer Urea nitrogen/Creatinine [Mass ratio] 8.3 mg/mg Normal [facility] Comment on above: Performed By: #### C MP, TSH, T4 #### [facility] [address] [place] [address] Dr. Mike Alcocer T4on 02-14-2022 T4 [Mass/Vol] 7.80 ug/dL Normal 5.53-11.00 [facility] Comment on above: Performed By: #### C MP, TSH, T4 #### [facility] [address] [place] [address] Dr. Mike Alcocer TSHon 02-14-2022 TSH 1.071 uIU/mL Normal 0.470-4.680 [facility] Comment on above: Performed By: #### C MP, TSH, T4 #### [facility] [address] [place] [address] Dr. Mike Alcocer TSH RANGE SEE BELOW Normal [facility] Comment on above: Result Comment: <0.3 4 UIU/ml HYPERTHYROID 0.34-5.60 UIU/ml EUTHYROID >5.60 UIU/ml HYPOTHYROID Performed By: #### C MP, TSH, T4 #### [facility] [address] [place] [address] Dr. Mike Alcocer CULTURE THROATon 11-16-2021 CULTURE THROAT Isolate 1 Haemophilus influenzae Heavy growth of Normal [facility] Comment on above: Performed By: #### C MP, TSH, T4 #### [facility] [address] [place] [address] Dr. Mike Alcocer [facility]25 SARS-CoV-2 (COVID-19) RNA RUSTY+probe Ql (Unsp spec) Not detected Normal NOT DETECTED [facility] Comment on above: Result Comment: This test is not yet approved or cleared by the [place] FDA. When there are no FDA-approved or cleared tests available, and other criteria are met, FDA can make tests available under an emergency access mechanism called an Emergency Use Authorization (EUA). The EUA for this test is supported by the [place] of Health and Human Service's (HHS's) declaration [...] SARS-CoV-2. Performed By: #### C VDTBH #### [facility] [address] [place], [place] [address] Dr. Mike Alcocer STREPT SCREENon 11-16-2021 STREP SCREEN A Negative Normal NEGATIVE [facility] [place] [facility] Comment on above: Performed By: #### S SCRN, THRTCX #### [facility] [address] [place], [place] [address] Dr. Mike Alcocer Vital Signs Date Time Vital Sign Value Performing Clinician Faci lity 12-30-2023 15:07-0500 Body weight 98.88 kg Joana WILCOX Work Phone: [facility] 12-30-2023 15:07-0500 Diastolic blood pressure 70 mm[Hg] Joana WILCOX Work Phone: [facility] 12-30-2023 15:07-0500 Systolic blood pressure 118 mm[Hg] Joana WILCOX Work Phone: [facility] Healthcare Encounters Encounter Date Encounter Type Care Provider Facility Start: 02-03-2024 End: 02-03-2024 ambulatory KRAIG JAS Not Available Start: 01-27-2024 End: 01-27-2024 ambulatory JOANA FREY Not Available Start: 01-13-2024 End: 01-13-2024 ambulatory KRAIG JAS Not Available Start: 12-30-2023 End: 12-30-2023 ambulatory JOANA FREY Not Available Start: 12-30-2023 End: 12-30-2023 flow sheet Joana WILCOX Work Phone: [facility] Comment on above: Third trimester preg maury Start: 12-16-2023 End: 12-16-2023 ambulatory KRAIG PACK Not Available Start: 11-25-2023 End: 11-25-2023 ambulatory JOANA FREY Not Available Start: 10-27-2023 End: 10-27-2023 ambulatory JOANA FREY Not Available Start: 05-23-2022 End: 05-24-[address] HAY MOMIN Facility:[facility] Start: 05-21-2022 End: 05-21-[address] HAY MOMIN Facility:[facility] Start: 02-14-2022 End: 02-15-[address] HAY MOMIN Facility:[facility] Start: 11-16-2021 End: 11-17-2021 ambulatory KEL LEONARD Facility:[facility] Start: 10-19-2021 ambulatory KEL LEONARD Facility:[facility] Procedures Date Procedure Procedure Detail Performing Clinician Start: 12-30-2023 Urnls dip stick/tabl et rgnt non-auto w/o micrscp Joana WILCOX Work Phone: Plan of Treatment Date Care Activity Detail Author Start: 01-13-2024 End: 01-13-2024 Patient encounter procedure 01/13/2024 2:40 PM EST Routine [facility] [address] [place] [address] Kraig Pack, DO [address] [place] [address] [facility] Payers Date Payer Category Payer Medicaid [facility] BCBS MEDICAID [place] [id number] 2022-Present [address] [place] [address] [id number] 2022 Medicaid [id number] 2014 Unknown [employer] [id number] 2014-Present [address] [address] [place] [address] [id number]. [id number] 1999 Unknown [id number] 2.16.840.1.727199.3.579.2.593 1999 Unknown [id number] 2.16.840.1.386984.3.579.2.593 1999 Unknown [id number] 2.16.840.1.771686.3.579.2.593 1999 Unknown [id number] 2.16.840.1.858537.3.579.2.593 1999 Unknown [id number] 2.16.840.1.705089.3.579.2.593 1999 Unknown [id number] 2.16.840.1.649569.3.579.2.1259 1999 Unknown [id number] 2.16.840.1.258340.3.579.2.1259 1999 Unknown [id number] 2.16.840.1.546384.3.579.2.1259 1999 Unknown [id number] 2.16.840.1.707369.3.579.2.1259 1999 Unknown [id number] 2.16.840.1.366499.3.579.2.1259 1999 Unknown [id number] 2.16.840.1.559555.3.579.2.1259 1999 Unknown [id number] 2.16.840.1.083468.3.579.2.1259 1959 Self-pay 1959 Unknown [id number] 1959 Unknown [id number] Social History Date Type Detail Facility Tobacco smoking stat [facility] Tobacco smoking consumption unknown [facility] Start: 06-14-2023 [facility] Start: 1999 Sex Assigned At Not on file [facility] Gender identity Not on file [facility] History of Present illness Narrative 12-30-2023 BRENDEN Farr - 12/30/2023 3:00 PM EST Note Date & Type Note Facility 12-30-2023 History of Presen t illness Narrative Reason for Appointment: Patient ID: Bubba Lewis is a 23 y.o. female who presents for Routine Visit Patient presents today for Return OB appointment. Current Medications: has a current medication list which includes the following prescription(s): cephalexin, bupropion sr, ondansetron odt, and mv-min-fe fum-fa-dha. Medical History: Active Ambulatory Problems Diagnosis Date Noted No Active Ambulatory Problems Resolved Ambulatory Problems Diagnosis Date Noted No Resolved Ambulatory Problems Past Medical History: Diagnosis Date ADD (attention deficit disorder) Bipolar disorder (CMS/HCC) Depression (CMS/HCC) Family History Problem Relation Name Age of Onset Hypertension Other Migraines Other Sleep apnea Other Diabetes Other Coronary artery disease Other Social History Tobacco Use Smoking status: Not on file Smokeless tobacco: Not on file Substance Use Topics Alcohol use: Not on file Drug use: Not on file Past Surgical History: Procedure Laterality Date OTHER SURGICAL HISTORY Reflux TONSILECTOMY, ADENOIDECTOMY, BILATERAL MYRINGOTOMY AND TUBES 03/29/2003 URETERAL REIMPLANTION No Known Allergies Review of Systems: Review of Systems Constitutional: Negative. HENT: Negative. Eyes: Negative. Respiratory: Negative. Cardiovascular: Negative. Gastrointestinal: Negative. Genitourinary: Negative. Musculoskeletal: Negative. Skin: Negative. Neurological: Negative. All other systems reviewed and are negative. Hematological: Negative. Endocrine: Negative. Allergic/Immunologic: Negative. Objective Physical Exam Constitutional: Appearance: Normal appearance. She is well-developed and normal weight. HENT: Head: Normocephalic. Cardiovascular: Rate and Rhythm: Normal rate and regular rhythm. Pulses: Normal pulses. Pulmonary: Effort: Pulmonary effort is normal. Breath sounds: Normal breath sounds. Abdominal: General: Bowel sounds are normal. There is no distension. Palpations: Abdomen is soft. Tenderness: There is no abdominal tenderness. There is no guarding or rebound. Musculoskeletal: General: No swelling. Normal range of motion. Right lower leg: No edema. Left lower leg: No edema. Neurological: General: No focal deficit present. Mental Status: She is alert and oriented to person, place, and time. Skin: General: Skin is warm and dry. Psychiatric: Mood and Affect: Mood normal. Behavior: Behavior normal. Thought Content: Thought content normal. Judgment: Judgment normal. Vitals and nursing note reviewed. Exam conducted with a assistant financial accountant present. Vitals: There is no height or weight on file to calculate BMI. BP: 118/70 Patient's last menstrual period was 05/31/2023. Assessment/Plan Encounter Diagnosis Name Primary? Third trimester Patient presents today for a routine obstetrics appointment. Patient is currently 30w3d . Patient states she is doing well but has complaints of being tired due to current . Patient has verbalizes frequent movement. labor precautions was discussed/given and patient was instructed to perform kick counts three times a day. Follow Up: Patient is to return to office in 2 week for routine OB appointment. Documented by BRENDEN Farr on behalf of: BRENDEN Farr documented in this encounter [facility] Clinical Note 05-23-2022 Note Date & Type Note Facility 05-23-2022 Note PROCEDURE: XR SHOULD ER LT 2V or > COMPARISON: None. HISTORY: Pain of left shoulder joint FINDINGS: BONES:No fracture, acute abnormality, or significant arthropathy. SOFT TISSUES:Negative. No visible soft tissue swelling. EFFUSION:None visible. OTHER: Negative. IMPRESSION: No acute abnormality Electronically authenticated by: DWIGHT FOY Date: 2022-05-23 17:19 [facility] Evaluation note Note Date & Type Note Facility Evaluation note Diagnosis Third trimester state, incidental documented in this encounter [facility] Summary Purpose Family History No Family History Records FoundNo Family History Records Found Advance Directives No Advanced Directives Records FoundNo Advanced Directives Records Found Additional Source Comments INFORMATION SOURCE (unrecogn ized section and content) DATE CREATED AUTHOR 10/08/2022 [facility] DATE CREATED AUTHOR AUTHOR'S ORGANIZ ATION 02/04/2024 [facility] EPIC Reason for Visit (unrecogniz ed section and content) Reason Comments Routine Visit Care Teams (unrecognized sec tion and content) Full Stack Php Developer Relationship Specialty Start Date End Date Hay Momin MD [address] [place] [address] PCP - General Family Medicine 08/15/23 FOR RECORDS PERTAINING TO PATIENTS WHO ARE [...] BE BASED ON THE PRIMARY CLINICAL RECORDS. [employer] provides no warranty or guarantee of the accuracy or completeness of information in this document.
== END 2024-02-09 08:01 | disposition home or self-care (01) ==
LOC: NOMS 08:01
PROVIDERS: PCP Family Medicine; Visit Provider Obstetrics & Gynecology
DX: O26.849 Uterine size-date discrepancy, unspecified trimester (principal); Z3A.36 36 weeks gestation of pregnancy
CPT/HCPCS: 76816

== ENCOUNTER 2024-02-10 21:07 | Outpatient (REF) | payer OTHER, MEDICAID, SELFPAY ==
--- OUTSIDE RECORDS SUMMARY | 2024-02-10 21:12 | XMS_ITS | CCD ---
Author Organization [facility] Care Team Providers Care Mission Planner Name Role Phone AISHA, KEL Primary Care [...] Unavailable HOUSE, DR MURCIA Primary Care Unavailable LILIANE, DR MURCIA Consulting Unavailable LILIANE, DR MURCIA Admitting Unavailable HOUSE, DR MURCIA Attending Unavailable HOUSE, DR MURCIA Primary Care Unavailable DANII, DR DWIGHT Kingsley Consulting Unavailable HOPEWELL, DR MURCIA Consulting Unavailable Liliane BAZZI, Hay Iqbal Primary Care Provider JOANA FREY Attending Unavailable [...] te Episodic/Chronic Other aftercare (1 source) Other group home (current) drug therapy; Translations: [OTH RESIDENTIAL CURRENT DRUG THERAPY] Onset: 11-19-2021 Episodic Other [...] UA Negative Negative - 4(70) +++ mg/dL [facility] Blood, UA Negative Negative - 50 Zach/mcL [facility] Clarity, UA Clear [facility] re Color, UA Yellow [facility] Glucose, UA Negative Negative - 1999(110) ++++ mg/dL [facility] Interpretation and review of laboratory results Normal [facility] Ketones, UA Negative Negative - 160(16) ++++ mg/dL [facility] Leukocytes, UA Negative Negative - 500+++ Nalini/mcL [facility] Nitrite, UA Negative Negative - Positive [facility] pH, UA 6.5 5 - 9 [facility] e Protein, UA Negative Negative - 1999(20) ++++ mg/dL [facility] Spec Grav, UA 1.010 1 - 1.03 [facility] Urobilinogen, UA 0.2 0.2 - 12 mg/dL [facility] e CULTURE URINEon 05-23-2022 CULTURE URINE Isolate [...] Trimethoprim/Sulfam ethoxazole <=20 S F Normal [facility] Comment on above: Performed By: #### U RCX #### [facility] [address] [place] [address] Dr. Mike Alcocer ER URINE PROFILEon 2 Bilirubin Ql (U) Negative Normal NEGATIVE [facility] Comment on above: Performed By: #### U MICRO, ERUR, PREGU #### [facility] [address] [address] [address] Mike Alcocer Clarity (U) CLEAR Normal CLEAR [facility] Comment on above: Performed By: #### U MICRO, ERUR, PREGU #### [facility] [address] [address] [address] Mike Alcocer Color (U) LT. YELLOW Normal YELLOW [facility] Comment on above: Performed By: #### U MICRO, ERUR, PREGU #### [facility] [address] [address] [address] Mike CUEVAS A micrscopic examination will be performed if indicated. Normal [facility] Comment on above: Performed By: #### U MICRO, ERUR, PREGU #### [facility] [address] [address] [address] Mike Alcocer Glucose Ql (U) Negative Normal NEGATIVE [facility] Comment on above: Performed By: #### U MICRO, ERUR, PREGU #### [facility] [address] [address] [address] Mike Alcocer Hemoglobin Ql (U) LARGE Abnormal NEGATIVE [facility] Comment on above: Performed By: #### U MICRO, ERUR, PREGU #### [facility] [address] [address] [address] Mike Alcocer Ketones Ql (U) Negative Normal NEGATIVE [facility] Comment on above: Performed By: #### U MICRO, ERUR, PREGU #### [facility] [address] [address] [address] Mike Alcocer LEUKOCYTES Negative Normal NEGATIVE [facility] Comment on above: Performed By: #### U MICRO, ERUR, PREGU #### [facility] [address] [address] [address] Mike Alcocer Nitrite Ql (U) Positive Abnormal NEGATIVE [facility] Comment on above: Performed By: #### U MICRO, ERUR, PREGU #### [facility] [address] [address] [address] Mike Alcocer pH (U) 6.5 [pH] Normal 5-9 [facility] Comment on above: Performed By: #### U MICRO, ERUR, PREGU #### [facility] [address] [address] [address] Mike Alcocer SPEC GRAVITY 1.025 Normal 1.005-<=1.025 [facility] Comment on above: Performed By: #### U MICRO, ERUR, PREGU #### [facility] [address] [address] [address] Mike Alcocer UA PROTEIN Negative Normal NEGATIVE/ TRACE [facility] Comment on above: Performed By: #### U MICRO, ERUR, PREGU #### [facility] [address] [place] [address] Dr. Mike Alcocer UR MICRO IND INDICATED Normal [facility] Comment on above: Performed By: #### U MICRO, ERUR, PREGU #### [facility] [address] [place] [address] Dr. Mike Alcocer Urobilinogen Qn (U) 0.2 {Molly'U}/dL Normal 0.2 - 1. 0 [facility] Comment on above: Performed By: #### U MICRO, ERUR, PREGU #### [facility] [address] [place] [address] Dr. Mike Alcocer URon 05-21-2022 , QUAL Negative Normal NEGATIVE [facility] Comment on above: Performed By: #### U MICRO, ERUR, PREGU #### [facility] [address] [place] [address] Dr. Mike Alcocer URINE MICROSCOPIC ONLYon BACTERIA MODERATE Abnormal NONE SEEN [facility] Comment on above: Performed By: #### U MICRO, ERUR, PREGU #### [facility] [address] [place] [address] Dr. Mike Alcocer Bacteria identified Cx Nom (U) INDICATED Normal [facility] Comment on above: Performed By: #### U MICRO, ERUR, PREGU #### [facility] [address] [place] [address] Dr. Mike Alcocer CAST NONE SEEN Normal NONE SEEN [facility] Comment on above: Performed By: #### U MICRO, ERUR, PREGU #### [facility] [address] [place] [address] Dr. Mike Alcocer Crystals LM Nom (Urine sed) NONE SEEN Normal NONE SEEN [facility] Comment on above: Performed By: #### U MICRO, ERUR, PREGU #### [facility] [address] [place] [address] Dr. Mike Alcocer Epithelial cells LM Ql (Urine sed) FEW Abnormal NONE SEEN /RARE [facility] Comment on above: Performed By: #### U MICRO, ERUR, PREGU #### [facility] [address] [place] [address] Dr. Mike Alcocer MUCOUS NONE SEEN Normal NONE SEEN [facility] Comment on above: Performed By: #### U MICRO, ERUR, PREGU #### [facility] [address] [place] [address] Dr. Mike Alcocer RBC 10-20 Abnormal 0-2 [facility] Comment on above: Performed By: #### U MICRO, ERUR, PREGU #### [facility] [address] [place] [address] Dr. Mike Alcocer WBC 2-5 Abnormal NONE SEEN [facility] Comment on above: Performed By: #### U MICRO, ERUR, PREGU #### [facility] [address] [place] [address] Dr. Mike Alcocer CBC AUTO DIFFon 02-14-2022 BASO # 0.1 103/ul Normal 0.0-0.1 [facility] Comment on above: Performed By: #### C MP, TSH, T4 #### [facility] [address] [place] [address] Dr. Mike Alcocer Basophils/100 WBC (Bld) 0.7 % Normal 0.2-2.0 [facility] Comment on above: Performed By: #### C MP, TSH, T4 #### [facility] [address] [place] [address] Dr. Mike Alcocer EO # 0.3 103/ul Normal 0.0-0.7 [facility] Comment on above: Performed By: #### C MP, TSH, T4 #### [facility] [address] [place] [address] Dr. Mike Alcocer Eosinophils/100 WBC (Bld) 3.5 % Normal 0.9-7.0 [facility] Comment on above: Performed By: #### C MP, TSH, T4 #### [facility] [address] [place] [address] Dr. Mike Alcocer Erythrocyte distribution width (RBC) [Ratio] 13.2 % Normal 11.0-15.0 [facility] Comment on above: Performed By: #### C MP, TSH, T4 #### [facility] [address] [place] [address] Dr. Mike Alcocer Hematocrit (Bld) [Volume fraction] 40.1 % Normal 36.0-48.0 [facility] Comment on above: Performed By: #### C MP, TSH, T4 #### [facility] [address] [place] [address] Dr. Mike Alcocer Hemoglobin (Bld) [Mass/Vol] 13.7 g/dL Normal 12.0-16.0 [facility] Comment on above: Performed By: #### C MP, TSH, T4 #### [facility] [address] [place] [address] Dr. Mike Alcocer IG # 0.03 10e3/ul Normal 0.00-0.03 [facility] Comment on above: Performed By: #### C MP, TSH, T4 #### [facility] [address] [place] [address] Dr. Mike Alcocer IG % 0.4 % Normal 0.0-0.5 [facility] Comment on above: Performed By: #### C MP, TSH, T4 #### [facility] [address] [place] [address] Dr. Mike Alcocer LYMPH # 2.5 103/ul Normal 1.2-3.8 [facility] Comment on above: Performed By: #### C MP, TSH, T4 #### [facility] [address] [place] [address] Dr. Mike Alcocer Lymphocytes/100 WBC (Bld) 34.6 % Normal 20.5-60.0 [facility] Comment on above: Performed By: #### C MP, TSH, T4 #### [facility] [address] [place] [address] Dr. Mike Alcocer MANUAL DIFF REQ NO Normal [place] Comment on above: Performed By: #### C MP, TSH, T4 #### [facility] [address] [place] [address] Dr. Mike Alcocer MCH (RBC) [Entitic mass] 29.3 pg Normal 26.7-34.0 [facility] Comment on above: Performed By: #### C MP, TSH, T4 #### [facility] [address] [place] [address] Dr. Mike Alcocer MCHC (RBC) [Mass/Vol] 34.2 g/dL Normal 29.9-35.2 [facility] Comment on above: Performed By: #### C MP, TSH, T4 #### [facility] [address] [place] [address] Dr. Mike Alcocer MCV (RBC) [Entitic vol] 85.9 fL Normal 81.0-99.0 [facility] Comment on above: Performed By: #### C MP, TSH, T4 #### [facility] [address] [place] [address] Dr. Mike Alcocer MONO # 0.3 103/ul Normal 0.3-0.8 [facility] Comment on above: Performed By: #### C MP, TSH, T4 #### [facility] [address] [place] [address] Dr. Mike Alcocer Monocytes/100 WBC (Bld) 3.5 % Normal 1.7-12.0 [facility] Comment on above: Performed By: #### C MP, TSH, T4 #### [facility] [address] [place] [address] Dr. Mike Alcocer NEUT # 4.2 103/ul Normal 1.4-6.5 [facility] Comment on above: Performed By: #### C MP, TSH, T4 #### [facility] [address] [place] [address] Dr. Mike Alcocer Neutrophils/100 WBC (Bld) 57.3 % Normal 43.0-75.0 [facility] Comment on above: Performed By: #### C MP, TSH, T4 #### [facility] [address] [place] [address] Dr. Mike Alcocer Platelet mean volume (Bld) [Entitic vol] 9.2 fL Critically low 9.5-13.5 [facility] Comment on above: Performed By: #### C MP, TSH, T4 #### [facility] [address] [place] [address] Dr. Mike Alcocre PLT 341 103/ul Normal 150-450 [facility] Comment on above: Performed By: #### C MP, TSH, T4 #### [facility] [address] [place] [address] Dr. Mike Alcocer RBC 4.67 106/ul Normal 4.20-5.40 [facility] Comment on above: Performed By: #### C MP, TSH, T4 #### [facility] [address] [place] [address] Dr. Mike Alcocer WBC 7.2 103/ul Normal 4.0-11.0 [facility] Comment on above: Performed By: #### C MP, TSH, T4 #### [facility] [address] [place] [address] Dr. Mike Alcocer PROF 14(COMP METB)on 022 Albumin [Mass/Vol] 3.9 g/dL Normal 3.4-5.0 [facility] Comment on above: Performed By: #### C MP, TSH, T4 #### [facility] [address] [place] [address] Dr. Mike Alcocer Albumin/Globulin [Mass ratio] 1.1 {ratio} Normal [facility] Comment on above: Performed By: #### C MP, TSH, T4 #### [facility] [address] [place] [address] Dr. Mike Alcocer ALP [Catalytic activity/Vol] 115 U/L Normal 46-116 [facility] Comment on above: Performed By: #### C MP, TSH, T4 #### [facility] [address] [address] [address] Mike Alcocer ALT [Catalytic activity/Vol] 28 U/L Normal 14-59 [facility] Comment on above: Performed By: #### C MP, TSH, T4 #### [facility] [address] [address] [address] Mike Alcocer Anion gap [Moles/Vol] 14.8 mmol/L Normal [facility] Comment on above: Performed By: #### C MP, TSH, T4 #### [facility] [address] [place] [address] Dr. Mike Alcocer AST [Catalytic activity/Vol] 19 U/L Normal 15-37 [facility] Comment on above: Performed By: #### C MP, TSH, T4 #### [facility] [address] [place] [address] Dr. Mike Alcocer Bilirubin [Mass/Vol] 0.4 mg/dL Normal 0.2-1.3 [facility] Comment on above: Performed By: #### C MP, TSH, T4 #### [facility] [address] [place] [address] Dr. Mike Alcocer Calcium [Mass/Vol] 9.1 mg/dL Normal 8.5-10.1 [facility] Comment on above: Performed By: #### C MP, TSH, T4 #### [facility] [address] [place] [address] Dr. Mike Alcocer Chloride [Moles/Vol] 102 mmol/L Normal 98-107 [facility] Comment on above: Performed By: #### C MP, TSH, T4 #### [facility] [address] [place] [address] Dr. Mike Alcocer CO2 [Moles/Vol] 25.8 mmol/L Normal 22.0-30.0 [facility] Comment on above: Performed By: #### C MP, TSH, T4 #### [facility] [address] [place] [address] Dr. Mike Alcocer Creatinine [Mass/Vol] 0.84 mg/dL Normal 0.52-1.04 [facility] Comment on above: Performed By: #### C MP, TSH, T4 #### [facility] [address] [address] [address] Mike Alcocer EGFR-AF LUXEMBOURGER >60 Normal >=60 [facility] Comment on above: Performed By: #### C MP, TSH, T4 #### [facility] [address] [address] [address] Mike Alcocer EGFR-NON AF LUXEMBOURGER >60 Normal >=60 [facility] Comment on above: Performed By: #### C MP, TSH, T4 #### [facility] [address] [address] [address] Mike Alcocer Globulin (S) [Mass/Vol] 3.4 g/dL Normal [facility] Comment on above: Performed By: #### C MP, TSH, T4 #### [facility] [address] [place] [address] Dr. Mike Alcocer Glucose [Mass/Vol] 98 mg/dL Normal 74-106 [facility] Comment on above: Performed By: #### C MP, TSH, T4 #### [facility] [address] [address] [address] Mike Alcocer Potassium [Moles/Vol] 3.6 mmol/L Normal 3.4-5.0 [facility] Comment on above: Performed By: #### C MP, TSH, T4 #### [facility] [address] [address] [address] Mike Alcocer Protein [Mass/Vol] 7.3 g/dL Normal 6.1-8.2 The [facility] Comment on above: Performed By: #### C MP, TSH, T4 #### [facility] [address] [address] [address] Mike Alcocer Sodium [Moles/Vol] 139 mmol/L Normal 137-145 [facility] Comment on above: Performed By: #### C MP, TSH, T4 #### [facility] [address] [place] [address] Dr. Mike Alcocer Urea nitrogen [Mass/Vol] 7.0 mg/dL Normal 7.0-18.0 [facility] Comment on above: Performed By: #### C MP, TSH, T4 #### [facility] [address] [address] [address] Mike Alcocer Urea nitrogen/Creatinine [Mass ratio] 8.3 mg/mg Normal [facility] Comment on above: Performed By: #### C MP, TSH, T4 #### [facility] [address] [address] [address] Mike Alcocer T4on 02-14-2022 T4 [Mass/Vol] 7.80 ug/dL Normal 5.53-11.00 [facility] Comment on above: Performed By: #### C MP, TSH, T4 #### [facility] [address] [place] [address] Dr. Mike Alcocer TSHon 02-14-2022 TSH 1.071 uIU/mL Normal 0.470-4.680 [facility] Comment on above: Performed By: #### C MP, TSH, T4 #### [facility] [address] [place] [address] Dr. Mike Alcocer TSH RANGE SEE BELOW Normal [facility] Comment on above: Result Comment: <0.3 4 UIU/ml HYPERTHYROID 0.34-5.60 UIU/ml EUTHYROID >5.60 UIU/ml HYPOTHYROID Performed By: #### C MP, TSH, T4 #### [facility] [address] [place] [address] Dr. Mike Alcocer CULTURE THROATon 11-16-2021 CULTURE THROAT Isolate 1 Haemophilus influenzae Heavy growth of Normal [facility] Comment on above: Performed By: #### C MP, TSH, T4 #### [facility] [address] [place] [address] Dr. Mike Alcocer Covid-19 PCR ([facility])on 10-25 SARS-CoV-2 (COVID-19) RNA RUSTY+probe Ql (Unsp spec) Not detected Normal NOT DETECTED [facility] Comment on above: Result Comment: This test is not yet approved or cleared by the [place] FDA. When there are no FDA-approved or cleared tests available, and other criteria are met, FDA can make tests available under an emergency access mechanism called an Emergency Use Authorization (EUA). The EUA for this test is supported by the [employer] of Health and Human Service's (HHS's) declaration [...] SARS-CoV-2. Performed By: #### C VDTBH #### [facility] [address] [place] [id number] [address] Mike Alcocer STREPT SCREENon 11-16-2021 STREP SCREEN A Negative Normal NEGATIVE [facility] Comment on above: Performed By: #### S SCRN, THRTCX #### [facility] [address] [place], [place] [address] Dr. Mike Alcocer Vital Signs Date Time Vital Sign Value Performing Clinician Faci lity 12-30-2023 15:07-0500 Body weight 98.88 kg Joana WILCOX Work Phone: [facility] 12-30-2023 15:07-0500 Diastolic blood pressure 70 mm[Hg] Joana WILCOX Work Phone: [facility] 12-30-2023 15:07-0500 Systolic blood pressure 118 mm[Hg] Joana WILCOX Work Phone: [facility] Healthcare Encounters Encounter Date Encounter Type Care [...] PM EST Routine [facility] [address] [place] [address] Kraig Pack, DO [address] [place] [address] [facility] Payers Date Payer Category Payer Medicaid ANTHEM BCBS [facility] AN[employer]M BCBS [place]ICA[place] [id number] 2022-Present [address] [place] [address] [id number] 2022 Medicaid [id number] 2014 Unknown [employer] [id number] 2014-Present [address] [address] [place] [address] [id number] 1999 Unknown [id number] 1999 Unknown [id number] 1999 Unknown [id number] [id number] 1999 Unknown [id number] [id number] 1999 Unknown [id number] [id number] 1999 Unknown [id number] [id number] 1999 Unknown [id number] [id number] 1999 Unknown [id number] [id number] 1999 Unknown [id number] [id number] 1999 Unknown [id number] [id number] 1999 Unknown [id number] [id number] 1999 Unknown [id number] 1959 Self-pay 1959 Unknown [id number] 1959 Unknown [id number] Social History Date Type Detail Facility Tobacco smoking stat [facility] Tobacco smoking consumption unknown [facility] Start: 06-14-2023 [facility] Start: [facility] Sex Assigned At Not on file [facility] Gender identity Not on file [facility] are History of Present illness Narrative 12-30-2023 [...] (attention deficit disorder) Bipolar disorder (CMS/HCC) Depression (CMS/[facility]) Family History Problem Relation Name Age of [...] nursing note reviewed. Exam conducted with a railroad mechanic present. Vitals: There is no height or [...] of: BRENDEN Farr documented in this encounter [facility] Clinical Note 05-23-2022 Note Date & Type Note Facility 05-23-2022 Note PROCEDURE: XR SHOULD ER LT 2V or > COMPARISON: None. HISTORY: Pain of left shoulder joint FINDINGS: BONES:No fracture, acute abnormality, or significant arthropathy. SOFT TISSUES:Negative. No visible soft tissue swelling. EFFUSION:None visible. OTHER: Negative. IMPRESSION: No acute abnormality Electronically authenticated by: DWIGHT FOY Date: 2022-05-23 17:19 [facility] Evaluation note Note Date & Type Note Facility Evaluation note Diagnosis Third trimester state, incidental documented in this encounter [facility] Summary Purpose Family History No Family History Records FoundNo Family History Records Found Advance Directives No Advanced Directives Records FoundNo Advanced Directives Records Found Additional Source Comments INFORMATION SOURCE (unrecogn ized section and content) DATE CREATED AUTHOR 10/08/2022 [facility] DATE CREATED AUTHOR AUTHOR'S ORGANIZ ATION 02/04/2024 [facility] EPIC Reason for Visit (unrecogniz ed section and content) Reason Comments Routine Visit Care Teams (unrecognized sec tion and content) Mission Planner Relationship Specialty Start Date End Date Hay Momin MD [address] [place] [address] PCP - General Family Medicine 08/15/23 FOR [...] BE BASED ON THE PRIMARY CLINICAL RECORDS. [facility] [employer] [facility]. provides no warranty or guarantee of the accuracy or completeness of information in this document.
== END 2024-02-10 21:08 | disposition home or self-care (01) ==
LOC: LAB 21:07
PROVIDERS: Visit Provider Obstetrics & Gynecology
DX: Z34.93 Encounter for supervision of normal pregnancy, unspecified, third trimester (principal)
CPT/HCPCS: 87081

== ENCOUNTER 2024-02-28 15:55 | Inpatient (IN) | payer OTHER, MEDICAID, SELFPAY ==
[2024-02-28] VITALS (10 sets, daily range): BP systolic 102–128; BP diastolic 56–79; PULSE 76–105; TEMP 36.5–36.9
--- OUTSIDE RECORDS SUMMARY | 2024-02-28 07:59 | XMS_ITS | CCD ---
Author Organization [facility] Care Team Providers Care Medical Practice Manager Name Role Phone KEL LEONARD Primary Care Unavailable LILIANE, DR MURCIA Admitting [...] Care Unavailable LILIANE, DR MURCIA Consulting Unavailable HOUSE, DR MURCIA Admitting Unavailable HOUSE, DR MURCIA Attending Unavailable HOUSE, DR MURCIA Primary Care Unavailable DANII, DR DWIGHT Kingsley Consulting Unavailable HADDAM, DR MURCIA Consulting Unavailable Hay Dickson MD Primary Care Provider JOANA FREY Attending Unavailable JAS, KRAIG Attending Unavailable TK, JOANA Attending Unavailable JAS, KRAIG Attending Unavailable TK, JOANA Attending Unavailable JAS, KRAIG Attending Unavailable JAS, KRAIG Attending Unavailable JAS, KRAIG Attending Unavailable JAS, KRAIG Attending Unavailable TK, [...] te Episodic/Chronic Other aftercare (1 source) Other fdc (current) drug therapy; Translations: [OTH CORRECTION CURRENT DRUG THERAPY] Onset: 11-19-2021 Episodic Other [...] UA Negative Negative - 4(70) +++ mg/dL [facility] Blood, UA Negative Negative - 50 Zach/mcL [facility] Clarity, UA Clear [facility] re Color, UA Yellow [facility], [facility]A Negative Negative - 1999(110) ++++ mg/dL [facility] Interpretation and review of laboratory results Normal [facility] Ketones, UA Negative Negative - 160(16) ++++ mg/dL [facility] Leukocytes, UA Negative Negative - 500+++ Nalini/mcL [facility] Nitrite, UA Negative Negative - Positive [facility] pH, UA 6.5 5 - 9 [facility] e Protein, UA Negative Negative - 1999(20) ++++ mg/dL [facility] Spec Grav, UA 1.010 1 - 1.03 [facility] Urobilinogen, UA 0.2 0.2 - 12 mg/dL [facility] CULTURE URINEon 05-23-2022 [...] Trimethoprim/Sulfam ethoxazole <=20 S F Normal [facility] Comment on above: Performed By: #### U RCX #### [facility] [address] [place] [address] Dr. Mike Alcocre ER URINE PROFILEon 2 Bilirubin Ql (U) Negative Normal NEGATIVE [facility] Comment on above: Performed By: #### U MICRO, ERUR, PREGU #### [facility] [address] [address] [address] Mike Alcocer Clarity (U) CLEAR Normal CLEAR [facility] Comment on above: Performed By: #### U MICRO, ERUR, PREGU #### [facility] [address] [address] [address] Mike Alcocer Color (U) LT. YELLOW Normal YELLOW [facility] Comment on above: Performed By: #### U MICRO, ERUR, PREGU #### [facility] [address] [address] [address] Mike NOVAKAHD A micrscopic examination will be performed if indicated. Normal [facility] Comment on above: Performed By: #### U MICRO, ERUR, PREGU #### [facility] [address] [place] [address] Dr. Mike Alcocer Glucose Ql (U) Negative Normal NEGATIVE [facility] Comment on above: Performed By: #### U MICRO, ERUR, PREGU #### [facility] [address] [place] [address] Dr. Mike Alcocer Hemoglobin Ql (U) LARGE Abnormal NEGATIVE [facility] Comment on above: Performed By: #### U MICRO, ERUR, PREGU #### [facility] [address] [place] [address] Dr. Mike Alcocer Ketones Ql (U) Negative Normal NEGATIVE [facility] Comment on above: Performed By: #### U MICRO, ERUR, PREGU #### [facility] [address] [address] [address] Mike Alcocer LEUKOCYTES Negative Normal NEGATIVE [facility] Comment on above: Performed By: #### U MICRO, ERUR, PREGU #### [facility] [address] [address] [address] Mike Alcocer Nitrite Ql (U) Positive Abnormal NEGATIVE [facility] Comment on above: Performed By: #### U MICRO, ERUR, PREGU #### [facility] [address] [place] [address] Dr. Mike Alcocer pH (U) 6.5 [pH] Normal 5-9 [facility] Comment on above: Performed By: #### U MICRO, ERUR, PREGU #### [facility] [address] [address] [address] Mike Alcocer SPEC GRAVITY 1.025 Normal 1.005-<=1.025 [facility] Comment on above: Performed By: #### U MICRO, ERUR, PREGU #### [facility] [address] [address] [address] Mike Alcocer UA PROTEIN Negative Normal NEGATIVE/ TRACE [facility] Comment on above: Performed By: #### U MICRO, ERUR, PREGU #### [facility] [address] [address] [address] Mike Alcocer UR MICRO IND INDICATED Normal [facility] Comment on above: Performed By: #### U MICRO, ERUR, PREGU #### [facility] [address] [place] [address] Dr. Mike Alcocer Urobilinogen Qn (U) 0.2 {Molly'U}/dL Normal 0.2 - 1. 0 [facility] Comment on above: Performed By: #### U MICRO, ERUR, PREGU #### [facility] [address] [place] [address] Dr. Mike Alcocer URon 05-21-2022 , QUAL Negative Normal NEGATIVE [facility] Comment on above: Performed By: #### U MICRO, ERUR, PREGU #### [facility] [address] [place] [address] Dr. Mike Alcocer URINE MICROSCOPIC ONLYon BACTERIA MODERATE Abnormal NONE SEEN [facility] Comment on above: Performed By: #### U MICRO, ERUR, PREGU #### [facility] [address] [address] [address] Mike Alcocer Bacteria identified Cx Nom (U) INDICATED Normal [facility] Comment on above: Performed By: #### U MICRO, ERUR, PREGU #### [facility] [address] [place] [address] Dr. Mike Alcocer CAST NONE SEEN Normal NONE SEEN [facility] Comment on above: Performed By: #### U MICRO, ERUR, PREGU #### [facility] [address] [address] [address] Mike Alcocer Crystals LM Nom (Urine sed) NONE SEEN Normal NONE SEEN [facility] Comment on above: Performed By: #### U MICRO, ERUR, PREGU #### [facility] [address] [place] [address] Dr. Mike Alcocer Epithelial cells LM Ql (Urine sed) FEW Abnormal NONE SEEN /RARE [facility] Comment on above: Performed By: #### U MICRO, ERUR, PREGU #### [facility] [address] [place] [address] Dr. Mike Alcocer MUCOUS NONE SEEN Normal NONE SEEN [facility] Comment on above: Performed By: #### U MICRO, ERUR, PREGU #### [facility] [address] [place] [address] Dr. Mike Alcocer RBC 10-20 Abnormal 0-2 [facility] Comment on above: Performed By: #### U MICRO, ERUR, PREGU #### [facility] [address] [place] [address] Dr. Mike Alcocer WBC 2-5 Abnormal NONE SEEN [facility] Comment on above: Performed By: #### U MICRO, ERUR, PREGU #### [facility] [address] [place] [address] Dr. Mike Alcocer CBC AUTO DIFFon 02-14-2022 BASO # 0.1 103/ul Normal 0.0-0.1 [facility] Comment on above: Performed By: #### C MP, TSH, T4 #### [facility] [address] [place] [address] Dr. Mike Alcocer Basophils/100 WBC (Bld) 0.7 % Normal 0.2-2.0 [facility] Comment on above: Performed By: #### C MP, TSH, T4 #### [facility] [address] [place] [address] Dr. Mike Alcocer EO # 0.3 103/ul Normal 0.0-0.7 [facility] Comment on above: Performed By: #### C MP, TSH, T4 #### [facility] [address] [place] [address] Dr. Mike Alcocer Eosinophils/100 WBC (Bld) 3.5 % Normal 0.9-7.0 [facility] Comment on above: Performed By: #### C MP, TSH, T4 #### [facility] [address] [place] [address] Dr. Mike Alcocer Erythrocyte distribution width (RBC) [Ratio] 13.2 % Normal 11.0-15.0 [facility] Comment on above: Performed By: #### C MP, TSH, T4 #### [facility] [address] [place] [address] Dr. Mike Alcocer Hematocrit (Bld) [Volume fraction] 40.1 % Normal 36.0-48.0 [facility] Comment on above: Performed By: #### C MP, TSH, T4 #### [facility] [address] [place] [address] Dr. Mike Alcocer Hemoglobin (Bld) [Mass/Vol] 13.7 g/dL Normal 12.0-16.0 [facility] Comment on above: Performed By: #### C MP, TSH, T4 #### [facility] [address] [place] [address] Dr. Mike Alcocer IG # 0.03 10e3/ul Normal 0.00-0.03 [facility] Comment on above: Performed By: #### C MP, TSH, T4 #### [facility] [address] [place] [address] Dr. Mike Alcocer IG % 0.4 % Normal 0.0-0.5 [facility] Comment on above: Performed By: #### C MP, TSH, T4 #### [facility] [address] [place] [address] Dr. Mike Alcocer LYMPH # 2.5 103/ul Normal 1.2-3.8 [facility] Comment on above: Performed By: #### C MP, TSH, T4 #### [facility] [address] [place] [address] Dr. Mike Alcocer Lymphocytes/100 WBC (Bld) 34.6 % Normal 20.5-60.0 [facility] Comment on above: Performed By: #### C MP, TSH, T4 #### [facility] [address] [place] [address] Dr. Mike Alcocer MANUAL DIFF REQ NO Normal [facility] Comment on above: Performed By: #### C MP, TSH, T4 #### [facility] [address] [place] [address] Dr. Mike Alcocer MCH (RBC) [Entitic mass] 29.3 pg Normal 26.7-34.0 [facility] Comment on above: Performed By: #### C MP, TSH, T4 #### [facility] [address] [place] [address] Dr. Mike Alcocer MCHC (RBC) [Mass/Vol] 34.2 g/dL Normal 29.9-35.2 [facility] Comment on above: Performed By: #### C MP, TSH, T4 #### [facility] [address] [place] [address] Dr. Mike Alcocer MCV (RBC) [Entitic vol] 85.9 fL Normal 81.0-99.0 [facility] Comment on above: Performed By: #### C MP, TSH, T4 #### [facility] [address] [place] [address] Dr. Mike Alcocer MONO # 0.3 103/ul Normal 0.3-0.8 [facility] Comment on above: Performed By: #### C MP, TSH, T4 #### [facility] [address] [place] [address] Dr. Mike Alcocer Monocytes/100 WBC (Bld) 3.5 % Normal 1.7-12.0 [facility] Comment on above: Performed By: #### C MP, TSH, T4 #### [facility] [address] [place] [address] Dr. Mike Alcocer NEUT # 4.2 103/ul Normal 1.4-6.5 [facility] Comment on above: Performed By: #### C MP, TSH, T4 #### [facility] [address] [address] [address] Mike Alcocer Neutrophils/100 WBC (Bld) 57.3 % Normal 43.0-75.0 [facility] Comment on above: Performed By: #### C MP, TSH, T4 #### [facility] [address] [place] [address] Dr. Mike Alcocer Platelet mean volume (Bld) [Entitic vol] 9.2 fL Critically low 9.5-13.5 [facility] Comment on above: Performed By: #### C MP, TSH, T4 #### [facility] [address] [place] [address] Dr. Mike Alcocer PLT 341 103/ul Normal 150-450 [facility] Comment on above: Performed By: #### C MP, TSH, T4 #### [facility] [address] [place] [address] Dr. Mike Alcocer RBC 4.67 106/ul Normal 4.20-5.40 [facility] Comment on above: Performed By: #### C MP, TSH, T4 #### [facility] [address] [place] [address] Dr. Mike Alcocer WBC 7.2 103/ul Normal 4.0-11.0 [facility] Comment on above: Performed By: #### C MP, TSH, T4 #### [facility] [address] [place] [address] Dr. Mike Alcocer PROF 14(COMP METB)on 022 Albumin [Mass/Vol] 3.9 g/dL Normal 3.4-5.0 [facility] Comment on above: Performed By: #### C MP, TSH, T4 #### [facility] [address] [place] [address] Dr. Mike Alcocer Albumin/Globulin [Mass ratio] 1.1 {ratio} Normal [facility] Comment on above: Performed By: #### C MP, TSH, T4 #### [facility] [address] [place] [address] Dr. Mike Alcocer ALP [Catalytic activity/Vol] 115 U/L Normal 46-116 [facility] Comment on above: Performed By: #### C MP, TSH, T4 #### [facility] [address] [address] [address] Mike Alcocer ALT [Catalytic activity/Vol] 28 U/L Normal 14-59 [facility] Comment on above: Performed By: #### C MP, TSH, T4 #### [facility] [address] [address] [address] Mike Alcocer Anion gap [Moles/Vol] 14.8 mmol/L Normal [facility] Comment on above: Performed By: #### C MP, TSH, T4 #### [facility] [address] [address] [address] Mike Alcocer AST [Catalytic activity/Vol] 19 U/L Normal 15-37 [facility] Comment on above: Performed By: #### C MP, TSH, T4 #### [facility] [address] [address] [address] Mike Alcocer Bilirubin [Mass/Vol] 0.4 mg/dL Normal 0.2-1.3 [facility] Comment on above: Performed By: #### C MP, TSH, T4 #### [facility] [address] [address] [address] Mike Alcocer Calcium [Mass/Vol] 9.1 mg/dL Normal 8.5-10.1 [facility] Comment on above: Performed By: #### C MP, TSH, T4 #### [facility] [address] [address] [address] Mike Alcocer Chloride [Moles/Vol] 102 mmol/L Normal 98-107 [facility] Comment on above: Performed By: #### C MP, TSH, T4 #### [facility] [address] [address] [address] Mike Alcocer CO2 [Moles/Vol] 25.8 mmol/L Normal 22.0-30.0 [facility] Comment on above: Performed By: #### C MP, TSH, T4 #### [facility] [address] [address] [address] Mike Alcocer Creatinine [Mass/Vol] 0.84 mg/dL Normal 0.52-1.04 [facility] Comment on above: Performed By: #### C MP, TSH, T4 #### [facility] [address] [place] [address] Dr. Mike Alcocer EGFR-AF PRYDEINIG >60 Normal >=60 [facility] Comment on above: Performed By: #### C MP, TSH, T4 #### [facility] [address] [place] [address] Dr. Mike Alcocer EGFR-NON AF PRYDEINIG >60 Normal >=60 [facility] Comment on above: Performed By: #### C MP, TSH, T4 #### [facility] [address] [place] [address] Dr. Mike Alcocer Globulin (S) [Mass/Vol] 3.4 g/dL Normal [facility] Comment on above: Performed By: #### C MP, TSH, T4 #### [facility] [address] [place] [address] Dr. Mike Alcocer Glucose [Mass/Vol] 98 mg/dL Normal 74-106 [facility] Comment on above: Performed By: #### C MP, TSH, T4 #### [facility] [address] [place] [address] Dr. Mike Alcocer Potassium [Moles/Vol] 3.6 mmol/L Normal 3.4-5.0 [facility] Comment on above: Performed By: #### C MP, TSH, T4 #### [facility] [address] [place] [address] Dr. Mike Alcocer Protein [Mass/Vol] 7.3 g/dL Normal 6.1-8.2 [facility] Comment on above: Performed By: #### C MP, TSH, T4 #### [facility] [address] [place] [address] Dr. Mike Alcocer Sodium [Moles/Vol] 139 mmol/L Normal 137-145 [facility] Comment on above: Performed By: #### C MP, TSH, T4 #### [facility] [address] [place] [address] Dr. Mike Alcocer Urea nitrogen [Mass/Vol] 7.0 mg/dL Normal 7.0-18.0 [facility] Comment on above: Performed By: #### C MP, TSH, T4 #### [facility] [address] [place] [address] Dr. Mike Alcocer Urea nitrogen/Creatinine [Mass ratio] 8.3 mg/mg Normal [facility] Comment on above: Performed By: #### C MP, TSH, T4 #### [facility] [address] [place] [address] Dr. Mike Alcocer T4on 02-14-2022 T4 [Mass/Vol] 7.80 ug/dL Normal 5.53-11.00 [facility] Comment on above: Performed By: #### C MP, TSH, T4 #### [facility] [address] [place] [address] Dr. Mike Alcocer TSHon 02-14-2022 TSH 1.071 uIU/mL Normal 0.470-4.680 [facility] Comment on above: Performed By: #### C MP, TSH, T4 #### [facility] [address] [place] [address] Dr. Mike Alcocer TSH RANGE SEE BELOW Normal [facility] Comment on above: Result Comment: <0.3 4 UIU/ml HYPERTHYROID 0.34-5.60 UIU/ml EUTHYROID >5.60 UIU/ml HYPOTHYROID Performed By: #### C MP, TSH, T4 #### [facility] [address] [place] [address] Dr. Mike Alcocer CULTURE THROATon 11-16-2021 CULTURE THROAT Isolate 1 Haemophilus influenzae Heavy growth of Normal [facility] Comment on above: Performed By: #### C MP, TSH, T4 #### [facility] [address] [place] [address] Dr. Mike Alcocer [facility]-25 SARS-CoV-2 (COVID-19) RNA RUSTY+probe Ql (Unsp spec) Not detected Normal NOT DETECTED [facility] Comment on above: Result Comment: This test is not yet approved or cleared by the [place] FDA. When there are no FDA-approved or cleared tests available, and other criteria are met, FDA can make tests available under an emergency access mechanism called an Emergency Use Authorization (EUA). The EUA for this test is supported by the Export of Health and Human Service's (HHS's) declaration [...] SARS-CoV-2. Performed By: #### C VDTBH #### [facility] [address] [place], [place] [address] Dr. Mike Alcocer STREPT SCREENon 11-16-2021 STREP SCREEN A Negative Normal NEGATIVE [facility] Comment on above: Performed By: #### S SCRN, THRTCX #### [facility] [address] [place], [place] [address] Dr. Mike Alcocer Vital Signs Date Time Vital Sign Value Performing Clinician Faci lity 12-30-2023 15:07-0500 Body weight 98.88 kg Jonaa WILCOX Work Phone: [facility] 12-30-2023 15:07-0500 Diastolic blood pressure 70 mm[Hg] Joana WILCOX Work Phone: [facility] 12-30-2023 15:07-0500 Systolic blood pressure 118 mm[Hg] Joana WILCOX Work Phone: [facility] Encounters Encounter Date Encounter Type Care Provider Facility Start: 02-24-2024 End: 02-24-2024 ambulatory KRAIG JAS Not Available Start: 02-17-2024 End: 02-17-2024 ambulatory KRAIG JAS Not Available Start: 02-10-2024 End: 02-10-2024 ambulatory KRAIG JAS Not Available Start: 02-03-2024 End: 02-03-2024 ambulatory KRAIG JAS Not Available Start: 01-27-2024 End: 01-27-2024 ambulatory JOANA TK Not Available Start: 01-13-2024 End: 01-13-2024 ambulatory KRAIG JAS Not Available Start: 12-30-2023 End: 12-30-2023 ambulatory JOANA FREY Not Available Start: 12-30-2023 End: 12-30-2023 flow sheet Joana WILCOX Work Phone: [facility] Comment on above: Third trimester preg maury Start: 12-16-2023 End: 12-16-2023 ambulatory KRAIG JAS Not Available Start: 11-25-2023 End: 11-25-2023 ambulatory JOANA FREY Not Available Start: 10-27-2023 End: 10-27-2023 ambulatory JOANA FREY Not Available Start: 05-23-2022 End: 05-24-[address] HAY DICKSON Facility:[facility] Start: 05-21-2022 End: 05-21-[address] HAY DICKSON Facility:[facility] Start: 02-14-2022 End: 02-15-[address] HAY DICKSON Facility:[facility] Start: 11-16-2021 End: 11-17-2021 ambulatory KEL LEONARD Facility:[facility] Start: 10-19-2021 ambulatory KEL LEONARD Facility:[facility] Procedures Date Procedure Procedure Detail Performing Clinician Start: 12-30-2023 Urnls dip stick/tabl et rgnt non-auto w/o micrscp Joana WILCOX Work Phone: Plan of Treatment Date Care Activity Detail Author Start: 01-13-2024 End: 01-13-2024 Patient encounter procedure 01/13/2024 2:40 PM EST Routine [facility] [address] [place] [address] Kraig Pack, DO [address] [place] [address] [facility] Payers Date Payer Category Payer Medicaid [employer] [facility] BCBS MEDICAID [place] [id number] 2022-Present [address] [place] [address] [id number] 2022 Medicaid [id number] 2014 Unknown [employer] [id number] 2014-Present [address] [address] [place] [address] [id number] 1999 Unknown [id number] 1999 Unknown [id number] [id number] 1999 Unknown [id number] [id number] 1999 Unknown [id number] [id number] 1999 Unknown [id number] [id number] 1999 Unknown [id number] 2.16.840.1.107436.3.579.2.1259 1999 Unknown [id number] 2.16.840.1.123775.3.579.2.1259 1999 Unknown [id number] 2.16.840.1.631239.3.579.2.1259 1999 Unknown [id number] 2.16.840.1.430241.3.579.2.1259 1999 Unknown [id number] 2.16.840.1.479048.3.579.2.1259 1999 Unknown [id number] 2.16.840.1.737280.3.579.2.1259 1999 Unknown [id number] 2.16.840.1.936583.3.579.2.1259 1999 Unknown [id number] 2.16.840.1.376677.3.579.2.1259 1999 Unknown [id number] 2.16.840.1.313786.3.579.2.1259 1999 Unknown [id number] [id number] 1959 Self-pay 1959 Unknown [id number] 1959 Unknown [id number] Social History Date Type Detail Facility Tobacco smoking stat [facility] Tobacco smoking consumption unknown [facility] Start: [...] Date ADD (attention deficit disorder) Bipolar disorder ([facility]) Depression ([facility]) Family History Problem Relation Name [...] nursing note reviewed. 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 Vitals: There is no height or [...] of: BRENDEN Farr documented in this encounter [facility] Clinical Note 05-23-2022 Note Date & Type Note Facility 05-23-2022 Note PROCEDURE: XR SHOULD ER LT 2V or > COMPARISON: None. HISTORY: Pain of left shoulder joint FINDINGS: BONES:No fracture, acute abnormality, or significant arthropathy. SOFT TISSUES:Negative. No visible soft tissue swelling. EFFUSION:None visible. OTHER: Negative. IMPRESSION: No acute abnormality Electronically authenticated by: DWIGHT FOY Date: 2022-05-23 17:19 [facility] Evaluation note Note Date & Type Note Facility Evaluation note Diagnosis Third trimester state, incidental documented in this encounter [facility] Summary Purpose Family History No Family History Records FoundNo Family History Records Found Advance Directives No Advanced Directives Records FoundNo Advanced Directives Records Found Additional Source Comments INFORMATION SOURCE (unrecogn ized section and content) DATE CREATED AUTHOR 10/08/2022 [facility] pital DATE CREATED AUTHOR AUTHOR'S ORGANIZ ATION 02/25/2024 [facility] EPIC Reason for Visit (unrecogniz ed section and content) Reason Comments Routine Visit Care Teams (unrecognized sec tion and content) Medical Practice Manager Relationship Specialty Start Date End Date Hay Dickson MD [address] [id number] PCP - General Family Medicine 08/15/23 FOR [...] BE BASED ON THE PRIMARY CLINICAL RECORDS. [facility] [email or web address] [facility]. provides no warranty or guarantee of the accuracy or completeness of information in this document.
--- OUTSIDE RECORDS SUMMARY | 2024-02-28 15:57 | XMS_ITS | CCD ---
Author Organization [facility] Care Team Providers Care Painting Department Supervisor Name Role Phone KEL LEONARD Primary Care [...] Unavailable DANII, DR DWIGHT Kingsley [employer] Unavailable LIBERTY, DR MURCIA Consulting Unavailable Hay Dickson MD [...] te Episodic/Chronic Other aftercare (1 source) Other longterm (current) drug therapy; Translations: [OTH ALF CURRENT DRUG THERAPY] Onset: 11-19-2021 Episodic Other [...] UA Negative Negative - 4(70) +++ mg/dL [facility] Blood, UA Negative Negative - 50 Zach/mcL [facility] Clarity, UA Clear [facility] re Color, UA Yellow [facility], [facility] Negative Negative - 1999(110) ++++ mg/dL [facility] Interpretation and review of laboratory results Normal [facility] Ketones, UA Negative Negative - 160(16) ++++ mg/dL [facility] Leukocytes, UA Negative Negative - 500+++ Nalini/mcL [facility] Nitrite, UA Negative Negative - Positive [facility] pH, UA 6.5 5 - 9 [facility] e Protein, UA Negative Negative - 1999(20) ++++ mg/dL [facility] Spec Grav, UA 1.010 1 - 1.03 [facility] Urobilinogen, UA 0.2 0.2 - 12 mg/dL [facility] CULTURE URINEon 05-23-2022 CULTURE URINE [...] Trimethoprim/Sulfam ethoxazole <=20 S F Normal [facility] Comment on above: Performed By: #### U RCX #### [facility] [address] [place] [address] Dr. Mike Alcocer ER URINE PROFILEon 2 Bilirubin Ql (U) Negative Normal NEGATIVE [facility] Comment on above: Performed By: #### U MICRO, ERUR, PREGU #### [facility] [address] [address] [address] Mike Alcocer Clarity (U) CLEAR Normal CLEAR [facility] Comment on above: Performed By: #### U MICRO, ERUR, PREGU #### [facility] [address] [address] [address] Mike Alcocer Color (U) LT. YELLOW Normal YELLOW [facility] Comment on above: Performed By: #### U MICRO, ERUR, PREGU #### [facility] [address] [address] [address] Mike NOVAKAHD A micrscopic examination will be performed if indicated. Normal [facility] Comment on above: Performed By: #### U MICRO, ERUR, PREGU #### [facility] [address] [place] [address] Dr. Mike Alcocer Glucose Ql (U) Negative Normal NEGATIVE [facility] Comment on above: Performed By: #### U MICRO, ERUR, PREGU #### [facility] [address] [place] [address] Dr. Mike Alcocer Hemoglobin Ql (U) LARGE Abnormal NEGATIVE [facility] Comment on above: Performed By: #### U MICRO, ERUR, PREGU #### [facility] [address] [place] [address] Dr. Mike Alcocer Ketones Ql (U) Negative Normal NEGATIVE [facility] Comment on above: Performed By: #### U MICRO, ERUR, PREGU #### [facility] [address] [address] [address] Mike Alcocer LEUKOCYTES Negative Normal NEGATIVE [facility] Comment on above: Performed By: #### U MICRO, ERUR, PREGU #### [facility] [address] [address] [address] Mike Alcocer Nitrite Ql (U) Positive Abnormal NEGATIVE [facility] Comment on above: Performed By: #### U MICRO, ERUR, PREGU #### [facility] [address] [place] [address] Dr. Mike Alcocer pH (U) 6.5 [pH] Normal 5-9 [facility] Comment on above: Performed By: #### U MICRO, ERUR, PREGU #### [facility] [address] [address] [address] Mike Alcocer SPEC GRAVITY 1.025 Normal 1.005-<=1.025 [facility] Comment on above: Performed By: #### U MICRO, ERUR, PREGU #### [facility] [address] [address] [address] Mike Alcocer UA PROTEIN Negative Normal NEGATIVE/ TRACE [facility] Comment on above: Performed By: #### U MICRO, ERUR, PREGU #### [facility] [address] [address] [address] Mike Alcocer UR MICRO IND INDICATED Normal [facility] Comment on above: Performed By: #### U MICRO, ERUR, PREGU #### [facility] [address] [place] [address] Dr. Mike Alcocer Urobilinogen Qn (U) 0.2 {Molly'U}/dL Normal 0.2 - 1. 0 [facility] Comment on above: Performed By: #### U MICRO, ERUR, PREGU #### [facility] [address] [place] [address] Dr. Mike Alcocer URon 05-21-2022 , QUAL Negative Normal NEGATIVE [facility] Comment on above: Performed By: #### U MICRO, ERUR, PREGU #### [facility] [address] [place] [address] Dr. Mike Alcocer URINE MICROSCOPIC ONLYon BACTERIA MODERATE Abnormal NONE SEEN [facility] Comment on above: Performed By: #### U MICRO, ERUR, PREGU #### [facility] [address] [address] [address] Mike Alcocer Bacteria identified Cx Nom (U) INDICATED Normal [facility] Comment on above: Performed By: #### U MICRO, ERUR, PREGU #### [facility] [address] [place] [address] Dr. Mike Alcocer CAST NONE SEEN Normal NONE SEEN [facility] Comment on above: Performed By: #### U MICRO, ERUR, PREGU #### [facility] [address] [address] [address] Mike Alcocer Crystals LM Nom (Urine sed) NONE SEEN Normal NONE SEEN [facility] Comment on above: Performed By: #### U MICRO, ERUR, PREGU #### [facility] [address] [place] [address] Dr. Mike Alcocer Epithelial cells LM Ql (Urine sed) FEW Abnormal NONE SEEN /RARE [facility] Comment on above: Performed By: #### U MICRO, ERUR, PREGU #### [facility] [address] [place] [address] Dr. Mike Alcocer MUCOUS NONE SEEN Normal NONE SEEN [facility] Comment on above: Performed By: #### U MICRO, ERUR, PREGU #### [facility] [address] [place] [address] Dr. Mike Alcocer RBC 10-20 Abnormal 0-2 [facility] Comment on above: Performed By: #### U MICRO, ERUR, PREGU #### [facility] [address] [place] [address] Dr. Mike Alcocer WBC 2-5 Abnormal NONE SEEN [facility] Comment on above: Performed By: #### U MICRO, ERUR, PREGU #### [facility] [address] [place] [address] Dr. Mike Alcocer CBC AUTO DIFFon 02-14-2022 BASO # 0.1 103/ul Normal 0.0-0.1 [facility] Comment on above: Performed By: #### C MP, TSH, T4 #### [facility] [address] [place] [address] Dr. Mike Alcocer Basophils/100 WBC (Bld) 0.7 % Normal 0.2-2.0 [facility] Comment on above: Performed By: #### C MP, TSH, T4 #### [facility] [address] [place] [address] Dr. Mike Alcocer EO # 0.3 103/ul Normal 0.0-0.7 [facility] Comment on above: Performed By: #### C MP, TSH, T4 #### [facility] [address] [place] [address] Dr. Mike Alcocer Eosinophils/100 WBC (Bld) 3.5 % Normal 0.9-7.0 [facility] Comment on above: Performed By: #### C MP, TSH, T4 #### [facility] [address] [place] [address] Dr. Mike Alcocer Erythrocyte distribution width (RBC) [Ratio] 13.2 % Normal 11.0-15.0 [facility] Comment on above: Performed By: #### C MP, TSH, T4 #### [facility] [address] [place] [address] Dr. Mike Alcocer Hematocrit (Bld) [Volume fraction] 40.1 % Normal 36.0-48.0 [facility] Comment on above: Performed By: #### C MP, TSH, T4 #### [facility] [address] [place] [address] Dr. Mike Alcocer Hemoglobin (Bld) [Mass/Vol] 13.7 g/dL Normal 12.0-16.0 [facility] Comment on above: Performed By: #### C MP, TSH, T4 #### [facility] [address] [place] [address] Dr. Mike Alcocer IG # 0.03 10e3/ul Normal 0.00-0.03 [facility] Comment on above: Performed By: #### C MP, TSH, T4 #### [facility] [address] [place] [address] Dr. Mike Alcocer IG % 0.4 % Normal 0.0-0.5 [facility] Comment on above: Performed By: #### C MP, TSH, T4 #### [facility] [address] [place] [address] Dr. Mike Alcocer LYMPH # 2.5 103/ul Normal 1.2-3.8 [facility] Comment on above: Performed By: #### C MP, TSH, T4 #### [facility] [address] [place] [address] Dr. Mike Alcocer Lymphocytes/100 WBC (Bld) 34.6 % Normal 20.5-60.0 [facility] Comment on above: Performed By: #### C MP, TSH, T4 #### [facility] [address] [place] [address] Dr. Mike Alcocer MANUAL DIFF REQ NO Normal [facility] Comment on above: Performed By: #### C MP, TSH, T4 #### [facility] [address] [place] [address] Dr. Mike Alcocer MCH (RBC) [Entitic mass] 29.3 pg Normal 26.7-34.0 [facility] Comment on above: Performed By: #### C MP, TSH, T4 #### [facility] [address] [place] [address] Dr. Mike Alcocer MCHC (RBC) [Mass/Vol] 34.2 g/dL Normal 29.9-35.2 [facility] Comment on above: Performed By: #### C MP, TSH, T4 #### [facility] [address] [place] [address] Dr. Mike Alcocer MCV (RBC) [Entitic vol] 85.9 fL Normal 81.0-99.0 [facility] Comment on above: Performed By: #### C MP, TSH, T4 #### [facility] [address] [place] [address] Dr. Mike Alcocer MONO # 0.3 103/ul Normal 0.3-0.8 [facility] Comment on above: Performed By: #### C MP, TSH, T4 #### [facility] [address] [place] [address] Dr. Mike Alcocer Monocytes/100 WBC (Bld) 3.5 % Normal 1.7-12.0 [facility] Comment on above: Performed By: #### C MP, TSH, T4 #### [facility] [address] [place] [address] Dr. Mike Alcocer NEUT # 4.2 103/ul Normal 1.4-6.5 [facility] Comment on above: Performed By: #### C MP, TSH, T4 #### [facility] [address] [address] [address] Mike Alcocer Neutrophils/100 WBC (Bld) 57.3 % Normal 43.0-75.0 [facility] Comment on above: Performed By: #### C MP, TSH, T4 #### [facility] [address] [place] [address] Dr. Mike Alcocer Platelet mean volume (Bld) [Entitic vol] 9.2 fL Critically low 9.5-13.5 [facility] Comment on above: Performed By: #### C MP, TSH, T4 #### [facility] [address] [place] [address] Dr. Mike Alcocer PLT 341 103/ul Normal 150-450 [facility] Comment on above: Performed By: #### C MP, TSH, T4 #### [facility] [address] [place] [address] Dr. Mike Alcocer RBC 4.67 106/ul Normal 4.20-5.40 [facility] Comment on above: Performed By: #### C MP, TSH, T4 #### [facility] [address] [place] [address] Dr. Mike Alcocer WBC 7.2 103/ul Normal 4.0-11.0 [facility] Comment on above: Performed By: #### C MP, TSH, T4 #### [facility] [address] [place] [address] Dr. Mike Alcocer PROF 14(COMP METB)on 022 Albumin [Mass/Vol] 3.9 g/dL Normal 3.4-5.0 [facility] Comment on above: Performed By: #### C MP, TSH, T4 #### [facility] [address] [place] [address] Dr. Mike Alcocer Albumin/Globulin [Mass ratio] 1.1 {ratio} Normal [facility] Comment on above: Performed By: #### C MP, TSH, T4 #### [facility] [address] [place] [address] Dr. Mike Alcocer ALP [Catalytic activity/Vol] 115 U/L Normal 46-116 [facility] Comment on above: Performed By: #### C MP, TSH, T4 #### [facility] [address] [address] [address] Mike Alcocer ALT [Catalytic activity/Vol] 28 U/L Normal 14-59 [facility] Comment on above: Performed By: #### C MP, TSH, T4 #### [facility] [address] [address] [address] Mike Alcocer Anion gap [Moles/Vol] 14.8 mmol/L Normal [facility] Comment on above: Performed By: #### C MP, TSH, T4 #### [facility] [address] [address] [address] Mike Alcocre AST [Catalytic activity/Vol] 19 U/L Normal 15-37 [facility] Comment on above: Performed By: #### C MP, TSH, T4 #### [facility] [address] [address] [address] Mike Alcocer Bilirubin [Mass/Vol] 0.4 mg/dL Normal 0.2-1.3 [facility] Comment on above: Performed By: #### C MP, TSH, T4 #### [facility] [address] [address] [address] Mike Alcocer Calcium [Mass/Vol] 9.1 mg/dL Normal 8.5-10.1 [facility] Comment on above: Performed By: #### C MP, TSH, T4 #### [facility] [address] [address] [address] Mike Alcocer Chloride [Moles/Vol] 102 mmol/L Normal 98-107 [facility] Comment on above: Performed By: #### C MP, TSH, T4 #### [facility] [address] [address] [address] Mike Alcocer CO2 [Moles/Vol] 25.8 mmol/L Normal 22.0-30.0 [facility] Comment on above: Performed By: #### C MP, TSH, T4 #### [facility] [address] [address] [address] Mike Alcocer Creatinine [Mass/Vol] 0.84 mg/dL Normal 0.52-1.04 [facility] Comment on above: Performed By: #### C MP, TSH, T4 #### [facility] [address] [place] [address] Dr. Mike Alcocer EGFR-AF KITTITIAN >60 Normal >=60 [facility] Comment on above: Performed By: #### C MP, TSH, T4 #### [facility] [address] [place] [address] Dr. Mike Alcocer EGFR-NON AF KITTITIAN >60 Normal >=60 [facility] Comment on above: Performed By: #### C MP, TSH, T4 #### [facility] [address] [place] [address] Dr. Mike Alcocer Globulin (S) [Mass/Vol] 3.4 g/dL Normal [facility] Comment on above: Performed By: #### C MP, TSH, T4 #### [facility] [address] [place] [address] Dr. Mike Alcocer Glucose [Mass/Vol] 98 mg/dL Normal 74-106 [facility] Comment on above: Performed By: #### C MP, TSH, T4 #### [facility] [address] [place] [address] Dr. Mike Alcocer Potassium [Moles/Vol] 3.6 mmol/L Normal 3.4-5.0 [facility] Comment on above: Performed By: #### C MP, TSH, T4 #### [facility] [address] [place] [address] Dr. Mike Alcocer Protein [Mass/Vol] 7.3 g/dL Normal 6.1-8.2 [facility] Comment on above: Performed By: #### C MP, TSH, T4 #### [facility] [address] [place] [address] Dr. Mike Alcocer Sodium [Moles/Vol] 139 mmol/L Normal 137-145 [facility] Comment on above: Performed By: #### C MP, TSH, T4 #### [facility] [address] [place] [address] Dr. Mike Alcocer Urea nitrogen [Mass/Vol] 7.0 mg/dL Normal 7.0-18.0 [facility] Comment on above: Performed By: #### C MP, TSH, T4 #### [facility] [address] [place] [address] Dr. Mike Alcocer Urea nitrogen/Creatinine [Mass ratio] 8.3 mg/mg Normal [facility] Comment on above: Performed By: #### C MP, TSH, T4 #### [facility] [address] [place] [address] Dr. Mike Alcocer T4on 02-14-2022 T4 [Mass/Vol] 7.80 ug/dL Normal 5.53-11.00 [facility] Comment on above: Performed By: #### C MP, TSH, T4 #### [facility] [address] [place] [address] Dr. Mike Alcocer TSHon 02-14-2022 TSH 1.071 uIU/mL Normal 0.470-4.680 [facility] Comment on above: Performed By: #### C MP, TSH, T4 #### [facility] [address] [place] [address] Dr. Mike Alcocer TSH RANGE SEE BELOW Normal [facility] Comment on above: Result Comment: <0.3 4 UIU/ml HYPERTHYROID 0.34-5.60 UIU/ml EUTHYROID >5.60 UIU/ml HYPOTHYROID Performed By: #### C MP, TSH, T4 #### [facility] [address] [place] [address] Dr. Mike Alcocer CULTURE THROATon 11-16-2021 CULTURE THROAT Isolate 1 Haemophilus influenzae Heavy growth of Normal [facility] Comment on above: Performed By: #### C MP, TSH, T4 #### [facility] [address] [place] [address] Dr. Mike Alcocer [facility]19 [facility]25 SARS-CoV-2 (COVID-19) RNA RUSTY+probe Ql (Unsp spec) Not detected Normal NOT DETECTED [facility] Comment on above: Result Comment: This test is not yet approved or cleared by the [place] FDA. When there are no FDA-approved or cleared tests available, and other criteria are met, FDA can make tests available under an emergency access mechanism called an Emergency Use Authorization (EUA). The EUA for this test is supported by the [place] of Health and Human Service's (HHS's) declaration [...] SARS-CoV-2. Performed By: #### C VDTBH #### [facility] [address] [place], [place] [address] Dr. Mike Alcocer STREPT SCREENon 11-16-2021 STREP SCREEN A Negative Normal NEGATIVE [facility] Comment on above: Performed By: #### S SCRN, THRTCX #### [facility] [address] [place], [place] [address] Dr. Mike Alcocer Vital Signs Date Time Vital Sign Value Performing Clinician Faci lity 12-30-2023 15:07-0500 Body weight 98.88 kg Joana WILCOX Work Phone: [facility] 12-30-2023 15:07-0500 Diastolic blood pressure 70 mm[Hg] Joana WILCOX Work Phone: [facility] 12-30-2023 15:07-0500 Systolic blood pressure 118 mm[Hg] Joana WILCOX Work Phone: [facility] Healthcare Encounters Encounter Date Encounter [...] Routine [facility] [address] [place] [address] Kraig Pack, DO [address] [place] [address] [facility] Payers Date Payer Category Payer Medicaid [employer] [facility] BCBS MEDICAID [place] [id number] 2022-Present [address] [place] [address] [id number] 2022 Medicaid [id number] 2014 Unknown [employer]IC [employer] [id number] 2014-Present [address] [address] [place] [address] [id number] 1999 Unknown [id number] [id number] 1999 Unknown [id number] [id number] 1999 Unknown [id number] 2.16.840.1.120834.3.579.2.593 1999 Unknown [id number] [id number] 1999 Unknown [id number] 2.16.840.1.673656.3.579.2.593 1999 Unknown [id number] 2.16.840.1.965972.3.579.2.1259 1999 Unknown [id number] 2.16.840.1.974396.3.579.2.1259 1999 Unknown [id number] 2.16.840.1.173149.3.579.2.1259 1999 Unknown [id number] 2.16.840.1.734937.3.579.2.1259 1999 Unknown [id number] 2.16.840.1.494128.3.579.2.1259 1999 Unknown [id number] 2.16.840.1.084995.3.579.2.1259 1999 Unknown [id number] 2.16.840.1.600238.3.579.2.1259 1999 Unknown [id number] 2.16.840.1.652984.3.579.2.1259 1999 Unknown [id number] 2.16.840.1.133880.3.579.2.1259 1999 Unknown [id number] [id number] 1959 Self-pay 1959 Unknown [id number] 1959 Unknown [id number] Social History Date Type Detail Facility Tobacco smoking stat [facility] Tobacco smoking consumption unknown [facility] [...] Date ADD (attention deficit disorder) Bipolar disorder ([facility] Depression ([facility]) Family History Problem Relation Name Age of [...] nursing note reviewed. Exam conducted with a dictaphone transcriber present. Vitals: There is no height or [...] of: BRENDEN Farr documented in this encounter [facility] Clinical Note 05-23-2022 Note Date & Type Note Facility 05-23-2022 Note PROCEDURE: XR SHOULD ER LT 2V or > COMPARISON: None. HISTORY: Pain of left shoulder joint FINDINGS: BONES:No fracture, acute abnormality, or significant arthropathy. SOFT TISSUES:Negative. No visible soft tissue swelling. EFFUSION:None visible. OTHER: Negative. IMPRESSION: No acute abnormality Electronically authenticated by: DWIGHT FOY Date: 2022-05-23 17:19 [facility] Evaluation note Note Date & Type Note Facility Evaluation note Diagnosis Third trimester state, incidental documented in this encounter [facility] Summary Purpose Family History No Family History Records FoundNo Family History Records Found Advance Directives No Advanced Directives Records FoundNo Advanced Directives Records Found Additional Source Comments INFORMATION SOURCE (unrecogn ized section and content) DATE CREATED AUTHOR 10/08/2022 [facility] [place] pital DATE CREATED AUTHOR AUTHOR'S ORGANIZ ATION 02/25/2024 [facility] EPIC Reason for Visit (unrecogniz ed section and content) Reason Comments Routine Visit Care Teams (unrecognized sec tion and content) Painting Department Supervisor Relationship Specialty Start Date End Date Hay Dickson MD [address] [id number] PCP - General Family Medicine 08/15/23 FOR [...] PRIMARY CLINICAL RECORDS. [facility] [facility]. provides no warranty or guarantee of the accuracy or completeness of information in this document.
[2024-02-28 16:53] LABS: Hematocrit 34.9 % (36.0-48.0); Mean Corpuscular HGB Conc 34.4 g/dL (29.9-35.2); Mean Corpuscular Hemoglobin 30.9 pg (26.7-34.0); Mean Corpuscular Volume 89.9 fL (81.0-99.0); Mean Platelet Volume 9.5 fL (9.5-13.5); Platelet Count 287 10^3/uL (150-450); Red Blood Count 3.88 10^6/uL (4.20-5.40); Red Cell Distribution Width 12.8 % (11.0-15.0); White Blood Count 12.2 10^3/uL (4.0-11.0)
[2024-02-28] MEDS: DINOPROSTONE 10 MG VAG INSERT.ER VAGINAL (17:00)
[2024-02-28 17:10] LABS: Amphetamine Screen Urine NEGATIVE (NEGATIVE); Barbiturates Screen Urine NEGATIVE (NEGATIVE); Benzodiazepines Screen Urine NEGATIVE (NEGATIVE); Buprenorphine Screen Urine NEGATIVE (NEGATIVE); Cannabinoid Screen Urine NEGATIVE (NEGATIVE); Cocaine Screen Urine NEGATIVE (NEGATIVE); Methadone Screen Urine NEGATIVE (NEGATIVE); Methamphetamines Screen Urine NEGATIVE (NEGATIVE); Opiate Screen Urine NEGATIVE (NEGATIVE); Oxycodone Screen Urine NEGATIVE (NEGATIVE); Phencyclidine Screen Urine NEGATIVE (NEGATIVE); Tricyclic Antidepressant Urine NEGATIVE (NEGATIVE)
[2024-02-29] VITALS (59 sets, daily range): BP systolic 84–157; BP diastolic 48–87; PULSE 68–91; TEMP 36.6–37.2
[2024-02-29] MEDS: 0.9 % SODIUM CHLORIDE 1,000 ML 125 ML IV ×3 (06:27→19:43)
[2024-02-29] MEDS: OXYTOCIN/0.9 % SODIUM CHLORIDE 10 UNITS/500 ML PLAST..BAG 6 UNIT IV ×2 (06:28→17:56)
[2024-02-29] MEDS: ROPIVACAINE HCL/PF 400 MG/200 ML PREMIX 6 MG EPIDURAL (19:44)
[2024-03-01] VITALS (18 sets, daily range): BP systolic 106–157; BP diastolic 52–89; PULSE 73–137; TEMP 36.7–37.1
[2024-03-01] MEDS: OXYTOCIN/0.9 % SODIUM CHLORIDE 20 UNITS/1,000 ML PLAST..BAG 125 UNIT IV (01:20)
--- NOTE | 2024-03-01 01:26 | PM.OBPRCVD ---
Procedure Intrapartal events: None Induction method: per misoprostol protocol Delivery augmentation: rupture of membranes and pitocin Delivery monitor: external FHT and external uterine Route of delivery: Episiotomy Description: none L&D Laceration Description: periurethral - 1st degree Delivery repair: Vicryl Estimated blood loss (mL): 200 Anesthesia type: Epidural Disposition: floor Infant Delivery date: 03/01/24 Gender: male presentation: vertex Placental delivery description: Spontaneous cord description: 3 Vessels
[2024-03-01] MEDS: IBUPROFEN 600 MG TABLET PO (12:06)
[2024-03-01] MEDS: VENLAFAXINE HCL ER 37.5 MG CAPSULE PO (12:07)
--- NOTE | 2024-03-01 19:19 | W.PC.ACHO ---
Registration Status: ADM IN Primary Language: Danish Preferred Language: Danish Report received at 1910. Active Medications Generic Name Dose Route Start Last Admin Trade Name Freq PRN Reason Stop Dose Admin Acetaminophen 650 mg 03/01/24 01:27 Acetaminophen 325 Mg Tablet PO Q6H PRN Mild Pain Al Hydroxide/Mg Hydroxide 2,400 mg 03/01/24 01:27 Magnesium Hydroxide 2,400 Mg/10 Ml Oral.Susp PO Q6H PRN Dyspepsia Benzocaine/Menthol 1 applic 03/01/24 01:27 Benzocaine/Menthol 85 Gram Nerinx Bottle TOPICAL Q2H PRN Pain Carboprost Tromethamine 250 mcg 02/28/24 16:38 Carboprost Tromethamine 250 Mcg/Ml 1 Ml Vial IM 03/01/24 23:00 Q15M PRN Bleeding Diphtheria/Pertussis/Tetanus Vacc 0.5 ml 03/03/24 09:00 Adacel Diph,Pertuss(Acell),Tet Vac/Pf 0.5 Ml Adult Syringe IM 03/03/24 09:01 .ONCE ONE Docusate Sodium 100 mg 03/02/24 09:00 Docusate Sodium 100 Mg Capsule PO BID NE Sodium Chloride 1,000 mls @ 125 mls/hr 02/28/24 17:00 02/29/24 19:43 Sodium Chloride 0.9% 1,000 Ml IV 125 mls/hr .Q8H NE Administration Ibuprofen 600 mg 03/01/24 01:27 03/01/24 12:06 Ibuprofen 600 Mg Tablet PO 600 mg Q6H PRN Administration Moderate Pain Measles/Mumps/Rubella Vaccine Live 0.5 ml 03/03/24 09:00 Measles,Mumps,Rubella Vacc/Pf 0.5 Ml Vial SQ 03/03/24 09:01 .ONCE ONE Methylergonovine Maleate 0.2 mg 02/28/24 16:38 Methylergonovine Maleate 0.2 Mg/Ml Ampule IM 03/01/24 23:00 ONCE PRN Uterine Contractility/Contract Methylergonovine Maleate 0.2 mg 02/28/24 16:38 Methylergonovine Maleate 0.2 Mg Tablet PO 03/01/24 23:00 Q4H PRN Uterine Contractility/Contract Misoprostol 600 mcg 02/28/24 16:38 Misoprostol 100 Mcg Tablet PO 03/01/24 23:00 ONCE PRN Uterine Bleeding Misoprostol 800 mcg 02/28/24 16:38 Misoprostol 100 Mcg Tablet SL 03/01/24 23:00 ONCE PRN Uterine Bleeding Misoprostol 1,000 mcg 02/28/24 16:38 Misoprostol 100 Mcg Tablet DE 03/01/24 23:00 ONCE PRN Uterine Bleeding Ondansetron HCl 4 mg 02/28/24 16:38 Ondansetron Pf 4 Mg/2 Ml Vial IV Q6H PRN Nausea And Vomiting Ondansetron HCl 4 mg 02/28/24 16:38 Ondansetron 4 Mg Rapdis Tablet SL Q6H PRN Nausea And Vomiting Senna 17.2 mg 03/01/24 20:00 Sennosides 8.6 Mg Tablet PO QHS PRN Constipation Simethicone 80 mg 03/01/24 01:27 Simethicone 80 Mg Tab.Chew PO QID PRN Abdominal Distention Temazepam 15 mg 03/01/24 01:27 Temazepam 15 Mg Capsule PO QHS PRN Sleep Venlafaxine HCl 37.5 mg 03/01/24 12:00 03/01/24 12:07 Venlafaxine Hcl Er 37.5 Mg Capsule PO 37.5 mg DAILY NE Administration Witch Veronica/Glycerin 1 pad 03/01/24 01:27 Glycerin/Witch Veronica Pads TOPICAL Q2H PRN Pain Diet Category Date Time Status Regular Consistency Diet Diet 03/01/24 01:27 Active Respiratory Oxygen Delivery Method Room Air Oxygen Delivery Method Room Air Oxygen Delivery Method Room Air Cardiology Heart Sounds Strong,Regular Heart Sounds Strong,Regular
[2024-03-02 01:23] VITALS: BP 120/67; PULSE 72
[2024-03-02] MEDS: IBUPROFEN 600 MG TABLET PO (05:11)
[2024-03-02 05:59] LABS: Basophils Percent Auto 0.2 % (0.2-2.0); Eosinophils Absolute Auto 0.1 10^3/uL (0.0-0.7); Eosinophils Percent Auto 0.6 % (0.9-7.0); Hematocrit 33.1 % (36.0-48.0); Hemoglobin 10.9 g/dL (12.0-16.0); Immature Granulocytes Abs Auto 0.13 10^3/uL (0.00-0.03); Immature Granulocytes Pct Auto 1.2 % (0.0-0.5); Lymphocytes Absolute Auto 2.9 10^3/uL (1.2-3.8); Lymphocytes Percent Auto 25.6 % (20.5-60.0); Mean Corpuscular HGB Conc 32.9 g/dL (29.9-35.2); Mean Corpuscular Hemoglobin 30.4 pg (26.7-34.0); Mean Corpuscular Volume 92.5 fL (81.0-99.0); Mean Platelet Volume 9.3 fL (9.5-13.5); Monocytes Absolute Auto 0.6 10^3/uL (0.3-0.8); Monocytes Percent Auto 5.5 % (1.7-12.0); Neutrophils Absolute Auto 7.5 10^3/uL (1.4-6.5); Neutrophils Percent Auto 66.9 % (43.0-75.0); Platelet Count 259 10^3/uL (150-450); Red Blood Count 3.58 10^6/uL (4.20-5.40); Red Cell Distribution Width 12.9 % (11.0-15.0); White Blood Count 11.2 10^3/uL (4.0-11.0)
--- NOTE | 2024-03-02 07:19 | W.PC.ACHO ---
Registration Status: ADM IN Primary Language: Bhutanese Preferred Language: Bhutanese Report given to Andres FAJARDO at 0710. Active Medications Generic Name Dose Route Start Last Admin Trade Name Freq PRN Reason Stop Dose Admin Acetaminophen 650 mg 03/01/24 01:27 Acetaminophen 325 Mg Tablet PO Q6H PRN Mild Pain Al Hydroxide/Mg Hydroxide 2,400 mg 03/01/24 01:27 Magnesium Hydroxide 2,400 Mg/10 Ml Oral.Susp PO Q6H PRN Dyspepsia Benzocaine/Menthol 1 applic 03/01/24 01:27 Benzocaine/Menthol 85 Gram [place] Bottle TOPICAL Q2H PRN Pain Diphtheria/Pertussis/Tetanus Vacc 0.5 ml 03/03/24 09:00 Adacel Diph,Pertuss(Acell),Tet Vac/Pf 0.5 Ml Adult Syringe IM 03/03/24 09:01 .ONCE ONE Docusate Sodium 100 mg 03/02/24 09:00 Docusate Sodium 100 Mg Capsule PO BID NE Sodium Chloride 1,000 mls @ 125 mls/hr 02/28/24 17:00 02/29/24 19:43 Sodium Chloride 0.9% 1,000 Ml IV 125 mls/hr .Q8H NE Administration Ibuprofen 600 mg 03/01/24 01:27 03/02/24 05:11 Ibuprofen 600 Mg Tablet PO 600 mg Q6H PRN Administration Moderate Pain Measles/Mumps/Rubella Vaccine Live 0.5 ml 03/03/24 09:00 Measles,Mumps,Rubella Vacc/Pf 0.5 Ml Vial SQ 03/03/24 09:01 .ONCE ONE Ondansetron HCl 4 mg 02/28/24 16:38 Ondansetron Pf 4 Mg/2 Ml Vial IV Q6H PRN Nausea And Vomiting Ondansetron HCl 4 mg 02/28/24 16:38 Ondansetron 4 Mg Rapdis Tablet SL Q6H PRN Nausea And Vomiting Senna 17.2 mg 03/01/24 20:00 Sennosides 8.6 Mg Tablet PO QHS PRN Constipation Simethicone 80 mg 03/01/24 01:27 Simethicone 80 Mg Tab.Chew PO QID PRN Abdominal Distention Temazepam 15 mg 03/01/24 01:27 Temazepam 15 Mg Capsule PO QHS PRN Sleep Venlafaxine HCl 37.5 mg 03/01/24 12:00 03/01/24 12:07 Venlafaxine Hcl Er 37.5 Mg Capsule PO 37.5 mg DAILY NE Administration Witch Veronica/Glycerin 1 pad 03/01/24 01:27 Glycerin/Witch Veronica Pads TOPICAL Q2H PRN Pain Respiratory Oxygen Delivery Method Room Air Oxygen Delivery Method Room Air Oxygen Delivery Method Room Air Oxygen Delivery Method Room Air Cardiology Heart Sounds Strong,Regular Renal Bladder Pattern Continent Bladder Pattern Continent
--- NOTE | 2024-03-02 08:20 | PM.OBPN ---
OB - PN: Subj Subjective Patient comments: no complaints [place] status: doing well and bottle Exam Constitutional Vital Signs, click to edit/add: Last Vital Signs Temp 98.1 F 03/01/24 17:47 Pulse 72 03/02/24 01:23 Resp 16 03/02/24 01:25 BP 120/67 03/02/24 01:23 O2 Del Method Room Air 03/02/24 01:25 Documenting provider has reviewed patient's vital signs: yes Common normals: no apparent distress and oriented x3 General appearance: cooperative and comfortable Orientation/consciousness: Yes awake, Yes oriented to person, Yes oriented to place and Yes oriented to time HENMT Common normals: normocephalic Eye Common normals: EOMs intact bilaterally Neck & C-Spine Common normals: full ROM Lymph Lymphatic: no lymphadenopathy noted Chest Common normals: inspection of chest normal Respiratory Common normals: normal respiratory effort Effort & inspection: able to speak in complete sentences Cardio Common normals: regular rate and regular rhythm Rate: regular rate Rhythm: regular rhythm GI Common normals: Normal to inspection, nondistended, normoactive bowel sounds present Inspection: normal to inspection Auscultation: normoactive bowel sounds Palpation: soft Common normals: no CVA tenderness Back & Pelvis Common normals: no CVA tenderness Extremity Common normals: normal to inspection and full ROM Neuro Common normals: oriented x3 Sensorium/orientation: awake, alert, oriented to person, oriented to place and oriented to time Psych Common normals: mental status grossly normal and thought process normal Results Labs Labs: Short CBC 03/02/24 Range/Units 05:50 WBC 11.2 H (4.0-11.0) 10^3/uL Hgb 10.9 L (12.0-16.0) g/dL Hct 33.1 L (36.0-48.0) % Plt Count 259 (150-450) 10^3/uL OB - PN: A/P Assessment and Plan (1) Term : Plan - Vaginal Delivery day: 1 Plan: discharge home Time Spent with Patient Time: Total time spent is greater than 50% in coordination of care (as documented) at patient's floor/unit and/or counseling patient: Total time spent with greater than 50% in coordination of care (as documented) at patient's floor/unit and/or counseling patient: less than 15 minutes
[2024-03-02 08:46] VITALS: BP 123/76; PULSE 83
[2024-03-02 08:49] VITALS: BP 123/76
[2024-03-02] MEDS: VENLAFAXINE HCL ER 37.5 MG CAPSULE PO (08:49)
[2024-03-02] MEDS: DOCUSATE SODIUM 100 MG CAPSULE PO (08:49)
[2024-03-02 08:51] VITALS: TEMP 37
[2024-03-02] MEDS: GLYCERIN/WITCH HAZEL PADS 1 PAD TOPICAL (10:40)
== END 2024-03-02 13:10 | disposition home or self-care (01) | DRG 807 ==
LOC: FBC 15:55
PROVIDERS: Admitting Provider Obstetrics & Gynecology; Visit Provider Obstetrics & Gynecology
DX: O70.0 First degree perineal laceration during delivery (principal); Z37.0 Single live birth; Z3A.39 39 weeks gestation of pregnancy; Z87.440 Personal history of urinary (tract) infections
CPT/HCPCS: 36415; 51702; 59050; 59410; 80307; 85025; 85027; 86850; 86900; 86901; 96374; 96376

== ENCOUNTER 2024-03-04 08:25 | Outpatient (OUT) | payer OTHER, MEDICAID, SELFPAY ==
--- NOTE | 2024-03-04 18:38 | PC.NURSE ---
Mary Ann Garza and 5 day old Yermo arrive for follow up appointment. Parents states are doing well, baby is not too fussy, feeds well and sleeps in bassinet during the night. Mom states feels well and has no complaints. FoB helpful and takes feeding during the night so mom can rest. Anne VSS and assessment WNL. Given info for drying up milk as not . Riley awake and looking around, VSS and assessment WNL. Weight stable and multiple wets and stools reported per parents Feeds every 3-4 hours, taking 35-48 ml, with a few feed taking 60 ml. Baby tolerating feeds well, no regurging. Parents adjusting well to , and having no problems at this time. Has WIC appointment and [facility] peds appointment scheduled. Leaves ambulatory without concerns.
[2024-03-04 18:41] VITALS: BP 109/78; PULSE 92; TEMP 36.7; O2SAT 95
== END 2024-03-04 16:35 | disposition home or self-care (01) ==
LOC: FBCO 08:33
PROVIDERS: Visit Provider Obstetrics & Gynecology
DX: Z39.2 Encounter for routine postpartum follow-up (principal)

== ENCOUNTER 2024-04-07 14:42 | Emergency (ER) | payer OTHER, MEDICAID, SELFPAY ==
--- OUTSIDE RECORDS SUMMARY | 2024-04-07 14:55 | XMS_ITS | CCD ---
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 therapy; Translations: [OTH ASSISTED CURRENT DRUG THERAPY] Onset: 11-19-2021 Episodic Other [...] UA Negative Negative - 4(70) +++ mg/dL [facility] Blood, UA Negative Negative - 50 Zach/mcL [facility] Clarity, UA Clear [facility] re Color, [facility], [facility] Negative - 1999(110) ++++ mg/dL [facility] Interpretation and review of laboratory results Normal [facility] Ketones, UA Negative Negative - 160(16) ++++ mg/dL [facility] Leukocytes, UA Negative Negative - 500+++ Nalini/mcL [facility] Nitrite, UA Negative Negative - Positive [facility] pH, UA 6.5 5 - 9 [facility] e Protein, UA Negative Negative - 1999(20) ++++ mg/dL [facility] Spec Grav, UA 1.010 1 - 1.03 [facility] Urobilinogen, UA 0.2 0.2 - 12 mg/dL [facility] CULTURE URINEon 05-23-2022 CULTURE URINE [...] Trimethoprim/Sulfam ethoxazole <=20 S F Normal [facility] Comment on above: Performed By: #### U RCX #### [facility] [address] [place] [address] Dr. Mike Alcocer ER URINE PROFILEon 2 Bilirubin Ql (U) Negative Normal NEGATIVE [facility] Comment on above: Performed By: #### U MICRO, ERUR, PREGU #### [facility] [address] [address] [address] Mike Alcocer Clarity (U) CLEAR Normal CLEAR [facility] Comment on above: Performed By: #### U MICRO, ERUR, PREGU #### [facility] [address] [address] [address] Mike Alcocer Color (U) LT. YELLOW Normal YELLOW [facility] Comment on above: Performed By: #### U MICRO, ERUR, PREGU #### [facility] [address] [address] [address] Mike NOVAKAHD A micrscopic examination will be performed if indicated. Normal [facility] Comment on above: Performed By: #### U MICRO, ERUR, PREGU #### [facility] [address] [place] [address] Dr. Mike Alcocer Glucose Ql (U) Negative Normal NEGATIVE [facility] Comment on above: Performed By: #### U MICRO, ERUR, PREGU #### [facility] [address] [place] [address] Dr. Mike Alcocer Hemoglobin Ql (U) LARGE Abnormal NEGATIVE [facility] Comment on above: Performed By: #### U MICRO, ERUR, PREGU #### [facility] [address] [place] [address] Dr. Mike Alcocer Ketones Ql (U) Negative Normal NEGATIVE [facility] Comment on above: Performed By: #### U MICRO, ERUR, PREGU #### [facility] [address] [address] [address] Mike Alcocer LEUKOCYTES Negative Normal NEGATIVE [facility] Comment on above: Performed By: #### U MICRO, ERUR, PREGU #### [facility] [address] [address] [address] Mike Alcocer Nitrite Ql (U) Positive Abnormal NEGATIVE [facility] Comment on above: Performed By: #### U MICRO, ERUR, PREGU #### [facility] [address] [place] [address] Dr. Mike Alcocer pH (U) 6.5 [pH] Normal 5-9 [facility] Comment on above: Performed By: #### U MICRO, ERUR, PREGU #### [facility] [address] [address] [address] Mike Alcocer SPEC GRAVITY 1.025 Normal 1.005-<=1.025 [facility] Comment on above: Performed By: #### U MICRO, ERUR, PREGU #### [facility] [address] [address] [address] Mike Alcocer UA PROTEIN Negative Normal NEGATIVE/ TRACE [facility] Comment on above: Performed By: #### U MICRO, ERUR, PREGU #### [facility] [address] [address] [address] Mike Alcocer UR MICRO IND INDICATED Normal [facility] Comment on above: Performed By: #### U MICRO, ERUR, PREGU #### [facility] [address] [place] [address] Dr. Mike Alcocer Urobilinogen Qn (U) 0.2 {Molly'U}/dL Normal 0.2 - 1. 0 [facility] Comment on above: Performed By: #### U MICRO, ERUR, PREGU #### [facility] [address] [place] [address] Dr. Mike Alcocer URon 05-21-2022 , QUAL Negative Normal NEGATIVE [facility] Comment on above: Performed By: #### U MICRO, ERUR, PREGU #### [facility] [address] [place] [address] Dr. Mike Alcocer URINE MICROSCOPIC ONLYon BACTERIA MODERATE Abnormal NONE SEEN [facility] Comment on above: Performed By: #### U MICRO, ERUR, PREGU #### [facility] [address] [address] [address] Mike Alcocer Bacteria identified Cx Nom (U) INDICATED Normal [facility] Comment on above: Performed By: #### U MICRO, ERUR, PREGU #### [facility] [address] [place] [address] Dr. Mike Alcocer CAST NONE SEEN Normal NONE SEEN [facility] Comment on above: Performed By: #### U MICRO, ERUR, PREGU #### [facility] [address] [address] [address] Mike Alcocer Crystals LM Nom (Urine sed) NONE SEEN Normal NONE SEEN [facility] Comment on above: Performed By: #### U MICRO, ERUR, PREGU #### [facility] [address] [place] [address] Dr. Mike Alcocer Epithelial cells LM Ql (Urine sed) FEW Abnormal NONE SEEN /RARE [facility] Comment on above: Performed By: #### U MICRO, ERUR, PREGU #### [facility] [address] [place] [address] Dr. Mike Alcocer MUCOUS NONE SEEN Normal NONE SEEN [facility] Comment on above: Performed By: #### U MICRO, ERUR, PREGU #### [facility] [address] [place] [address] Dr. Mike Alcocer RBC 10-20 Abnormal 0-2 [facility] Comment on above: Performed By: #### U MICRO, ERUR, PREGU #### [facility] [address] [place] [address] Dr. Mike Alcocer WBC 2-5 Abnormal NONE SEEN [facility] Comment on above: Performed By: #### U MICRO, ERUR, PREGU #### [facility] [address] [place] [address] Dr. Mike Alcocer CBC AUTO DIFFon 02-14-2022 BASO # 0.1 103/ul Normal 0.0-0.1 [facility] Comment on above: Performed By: #### C MP, TSH, T4 #### [facility] [address] [place] [address] Dr. Mike Alcocer Basophils/100 WBC (Bld) 0.7 % Normal 0.2-2.0 [facility] Comment on above: Performed By: #### C MP, TSH, T4 #### [facility] [address] [place] [address] Dr. Mike Alcocer EO # 0.3 103/ul Normal 0.0-0.7 [facility] Comment on above: Performed By: #### C MP, TSH, T4 #### [facility] [address] [place] [address] Dr. Mike Alcocer Eosinophils/100 WBC (Bld) 3.5 % Normal 0.9-7.0 [facility] Comment on above: Performed By: #### C MP, TSH, T4 #### [facility] [address] [place] [address] Dr. Mike Alcocer Erythrocyte distribution width (RBC) [Ratio] 13.2 % Normal 11.0-15.0 [facility] Comment on above: Performed By: #### C MP, TSH, T4 #### [facility] [address] [place] [address] Dr. Mike Alcocer Hematocrit (Bld) [Volume fraction] 40.1 % Normal 36.0-48.0 [facility] Comment on above: Performed By: #### C MP, TSH, T4 #### [facility] [address] [place] [address] Dr. Miek Alcocer Hemoglobin (Bld) [Mass/Vol] 13.7 g/dL Normal 12.0-16.0 [facility] Comment on above: Performed By: #### C MP, TSH, T4 #### [facility] [address] [place] [address] Dr. iMke Alcocer IG # 0.03 10e3/ul Normal 0.00-0.03 [facility] Comment on above: Performed By: #### C MP, TSH, T4 #### [facility] [address] [place] [address] Dr. Mike Alcocer IG % 0.4 % Normal 0.0-0.5 [facility] Comment on above: Performed By: #### C MP, TSH, T4 #### [facility] [address] [place] [address] Dr. Mike Alcocer LYMPH # 2.5 103/ul Normal 1.2-3.8 [facility] Comment on above: Performed By: #### C MP, TSH, T4 #### [facility] [address] [place] [address] Dr. Mike Alcocer Lymphocytes/100 WBC (Bld) 34.6 % Normal 20.5-60.0 [facility] Comment on above: Performed By: #### C MP, TSH, T4 #### [facility] [address] [place] [address] Dr. Mike Alcocer MANUAL DIFF REQ NO Normal [facility] Comment on above: Performed By: #### C MP, TSH, T4 #### [facility] [address] [place] [address] Dr. Mike Alcocer MCH (RBC) [Entitic mass] 29.3 pg Normal 26.7-34.0 [facility] Comment on above: Performed By: #### C MP, TSH, T4 #### [facility] [address] [place] [address] Dr. Mike Alcocer MCHC (RBC) [Mass/Vol] 34.2 g/dL Normal 29.9-35.2 [facility] Comment on above: Performed By: #### C MP, TSH, T4 #### [facility] [address] [place] [address] Dr. Mike Alcocer MCV (RBC) [Entitic vol] 85.9 fL Normal 81.0-99.0 [facility] Comment on above: Performed By: #### C MP, TSH, T4 #### [facility] [address] [place] [address] Dr. Mike Alcocer MONO # 0.3 103/ul Normal 0.3-0.8 [facility] Comment on above: Performed By: #### C MP, TSH, T4 #### [facility] [address] [place] [address] Dr. Mike Alcocer Monocytes/100 WBC (Bld) 3.5 % Normal 1.7-12.0 [facility] Comment on above: Performed By: #### C MP, TSH, T4 #### [facility] [address] [place] [address] Dr. Mike Alcocer NEUT # 4.2 103/ul Normal 1.4-6.5 [facility] Comment on above: Performed By: #### C MP, TSH, T4 #### [facility] [address] [address] [address] Mike Alcocer Neutrophils/100 WBC (Bld) 57.3 % Normal 43.0-75.0 [facility] Comment on above: Performed By: #### C MP, TSH, T4 #### [facility] [address] [place] [address] Dr. Mike Alcocer Platelet mean volume (Bld) [Entitic vol] 9.2 fL Critically low 9.5-13.5 [facility] Comment on above: Performed By: #### C MP, TSH, T4 #### [facility] [address] [place] [address] Dr. Mike Alcocer PLT 341 103/ul Normal 150-450 [facility] Comment on above: Performed By: #### C MP, TSH, T4 #### [facility] [address] [place] [address] Dr. Mike Alcocer RBC 4.67 106/ul Normal 4.20-5.40 [facility] Comment on above: Performed By: #### C MP, TSH, T4 #### [facility] [address] [place] [address] Dr. Mike Alcocer WBC 7.2 103/ul Normal 4.0-11.0 [facility] Comment on above: Performed By: #### C MP, TSH, T4 #### [facility] [address] [place] [address] Dr. Mike Alcocer PROF 14(COMP METB)on 022 Albumin [Mass/Vol] 3.9 g/dL Normal 3.4-5.0 [facility] Comment on above: Performed By: #### C MP, TSH, T4 #### [facility] [address] [place] [address] Dr. Mike Alcocer Albumin/Globulin [Mass ratio] 1.1 {ratio} Normal [facility] Comment on above: Performed By: #### C MP, TSH, T4 #### [facility] [address] [place] [address] Dr. Mike Alcocer ALP [Catalytic activity/Vol] 115 U/L Normal 46-116 [facility] Comment on above: Performed By: #### C MP, TSH, T4 #### [facility] [address] [address] [address] Mike Alcocer ALT [Catalytic activity/Vol] 28 U/L Normal 14-59 [facility] Comment on above: Performed By: #### C MP, TSH, T4 #### [facility] [address] [address] [address] Mike Alcocer Anion gap [Moles/Vol] 14.8 mmol/L Normal [facility] Comment on above: Performed By: #### C MP, TSH, T4 #### [facility] [address] [address] [address] Mike Alcocer AST [Catalytic activity/Vol] 19 U/L Normal 15-37 [facility] Comment on above: Performed By: #### C MP, TSH, T4 #### [facility] [address] [address] [address] Mike Alcocer Bilirubin [Mass/Vol] 0.4 mg/dL Normal 0.2-1.3 [facility] Comment on above: Performed By: #### C MP, TSH, T4 #### [facility] [address] [address] [address] Mike Alcocer Calcium [Mass/Vol] 9.1 mg/dL Normal 8.5-10.1 [facility] Comment on above: Performed By: #### C MP, TSH, T4 #### [facility] [address] [address] [address] Mike Alcocer Chloride [Moles/Vol] 102 mmol/L Normal 98-107 [facility] Comment on above: Performed By: #### C MP, TSH, T4 #### [facility] [address] [address] [address] Mike Alcocer CO2 [Moles/Vol] 25.8 mmol/L Normal 22.0-30.0 [facility] Comment on above: Performed By: #### C MP, TSH, T4 #### [facility] [address] [address] [address] Mike Alcocer Creatinine [Mass/Vol] 0.84 mg/dL Normal 0.52-1.04 [facility] Comment on above: Performed By: #### C MP, TSH, T4 #### [facility] [address] [place] [address] Dr. Mike Alcocer EGFR-AF [place] >60 Normal >=60 [facility] Comment on above: Performed By: #### C MP, TSH, T4 #### [facility] [address] [place] [address] Dr. Mike Alcocer EGFR-NON AF [place] >60 Normal >=60 [facility] Comment on above: Performed By: #### C MP, TSH, T4 #### [facility] [address] [place] [address] Dr. Mike Alcocer Globulin (S) [Mass/Vol] 3.4 g/dL Normal [facility] Comment on above: Performed By: #### C MP, TSH, T4 #### [facility] [address] [place] [address] Dr. Mike Alcocer Glucose [Mass/Vol] 98 mg/dL Normal 74-106 [facility] Comment on above: Performed By: #### C MP, TSH, T4 #### [facility] [address] [place] [address] Dr. Mike Alcocer Potassium [Moles/Vol] 3.6 mmol/L Normal 3.4-5.0 [facility] Comment on above: Performed By: #### C MP, TSH, T4 #### [facility] [address] [place] [address] Dr. Mike Alcocer Protein [Mass/Vol] 7.3 g/dL Normal 6.1-8.2 [facility] Comment on above: Performed By: #### C MP, TSH, T4 #### [facility] [address] [place] [address] Dr. Mike Alcocer Sodium [Moles/Vol] 139 mmol/L Normal 137-145 [facility] Comment on above: Performed By: #### C MP, TSH, T4 #### [facility] [address] [place] [address] Dr. Mike Alcocer Urea nitrogen [Mass/Vol] 7.0 mg/dL Normal 7.0-18.0 [facility] Comment on above: Performed By: #### C MP, TSH, T4 #### [facility] [address] [place] [address] Dr. Mike Alcocer Urea nitrogen/Creatinine [Mass ratio] 8.3 mg/mg Normal [facility] Comment on above: Performed By: #### C MP, TSH, T4 #### [facility] [address] [place] [address] Dr. Mike Alcocer T4on 02-14-2022 T4 [Mass/Vol] 7.80 ug/dL Normal 5.53-11.00 [facility] Comment on above: Performed By: #### C MP, TSH, T4 #### [facility] [address] [place] [address] Dr. Mike Alcocer TSHon 02-14-2022 TSH 1.071 uIU/mL Normal 0.470-4.680 [facility] Comment on above: Performed By: #### C MP, TSH, T4 #### [facility] [address] [place] [address] Dr. Mike Alcocer TSH RANGE SEE BELOW Normal [facility] Comment on above: Result Comment: <0.3 4 UIU/ml HYPERTHYROID 0.34-5.60 UIU/ml EUTHYROID >5.60 UIU/ml HYPOTHYROID Performed By: #### C MP, TSH, T4 #### [facility] [address] [place] [address] Dr. Mike Alcocer CULTURE THROATon 11-16-2021 CULTURE THROAT Isolate 1 Haemophilus influenzae Heavy growth of Normal [facility] Comment on above: Performed By: #### C MP, TSH, T4 #### [facility] [address] [place] [address] Dr. Mike Alcocer [facility] SARS-CoV-2 (COVID-19) RNA RUSTY+probe Ql (Unsp spec) Not detected Normal NOT DETECTED [facility] Comment on above: Result Comment: This test is not yet approved or cleared by the [place] FDA. When there are no FDA-approved or cleared tests available, and other criteria are met, FDA can make tests available under an emergency access mechanism called an Emergency Use Authorization (EUA). The EUA for this test is supported by the [employer] of Health and Human Service's (HHS's) declaration [...] SARS-CoV-2. Performed By: #### C VDTBH #### [facility] [address] [place], [place] [address] Dr. Mike Alcocer STREPT SCREENon 11-16-2021 STREP SCREEN A Negative Normal NEGATIVE [facility] Comment on above: Performed By: #### S SCRN, THRTCX #### [facility] [address] [place], [place] [address] Dr. Mike Alcocer Vital Signs Date Time Vital Sign Value Performing Clinician Faci lity 12-30-2023 15:07-0500 Body weight 98.88 kg Joana WILCOX Work Phone: [facility] 12-30-2023 15:07-0500 Diastolic blood pressure 70 mm[Hg] Joana WILCOX Work Phone: [facility] 12-30-2023 15:07-0500 Systolic blood pressure 118 mm[Hg] Joana WILCOX [facility] Phone: [facility] Encounters Encounter Date Encounter Type Care [...] Routine [facility] [address] [place] [address] Kraig Pack, DO [address] [place] [address] [facility] Payers Date Payer Category Payer Medicaid [employer] BCBS [facility] BCBS [place]ICA[place] [id number] 2022-Present [address] [place] [address] [id number] 2022 Medicaid [id number] 2014 Unknown [employer]IC [employer] [id number] 2014-Present [address] [address] [place] [address] [id number] 1999 Unknown [id number] [id number] 1999 Unknown [id number] [id number] 1999 Unknown [id number] [id number] 1999 Unknown [id number] [id number] 1999 Unknown [id number] 2.16.840.1.702766.3.579.2.593 1999 Unknown [id number] 2.16.840.1.656169.3.579.2.1259 1999 Unknown [id number] 2.16.840.1.104881.3.579.2.1259 1999 Unknown [id number] 2.16.840.1.916805.3.579.2.1259 1999 Unknown [id number] 2.16.840.1.087007.3.579.2.1259 1999 Unknown [id number] 2.16.840.1.806617.3.579.2.1259 1999 Unknown [id number] 2.16.840.1.598930.3.579.2.1259 1999 Unknown [id number] 2.16.840.1.810266.3.579.2.1259 1999 Unknown [id number] 2.16.840.1.986550.3.579.2.1259 1999 Unknown [id number] 2.16.840.1.770721.3.579.2.1259 1999 Unknown [id number] [id number] 1959 Self-pay 1959 Unknown [id number] 1959 Unknown [id number] Social History Date Type Detail Facility Tobacco smoking stat [facility] Tobacco smoking consumption unknown [facility] Start: 06-14-2023 [facility] Start: 2000 Sex Assigned At Not on file [facility] Gender identity Not on file [facility] are History of Present illness Narrative 12-30-2023 BREDNEN Farr - 12/30/2023 3:00 PM EST Note [...] Date ADD (attention deficit disorder) Bipolar disorder ([facility]) Depression ([facility]) Family History Problem Relation Name [...] nursing note reviewed. Exam conducted with a house manager present. Vitals: There is no height or [...] of: BRENDEN Farr documented in this encounter [facility] Clinical Note 05-23-2022 Note Date & Type Note Facility 05-23-2022 Note PROCEDURE: XR SHOULD ER LT 2V or > COMPARISON: None. HISTORY: Pain of left shoulder joint FINDINGS: BONES:No fracture, acute abnormality, or significant arthropathy. SOFT TISSUES:Negative. No visible soft tissue swelling. EFFUSION:None visible. OTHER: Negative. IMPRESSION: No acute abnormality Electronically authenticated by: DWIGHT FOY Date: 2022-05-23 17:19 [facility] Evaluation note Note Date & Type Note Facility Evaluation note Diagnosis Third trimester state, incidental documented in this encounter [facility] Summary Purpose Family History No Family History Records FoundNo Family History Records Found Advance Directives No Advanced Directives Records FoundNo Advanced Directives Records Found Additional Source Comments INFORMATION SOURCE (unrecogn ized section and content) DATE CREATED AUTHOR 10/08/2022 [facility] DATE CREATED AUTHOR AUTHOR'S ORGANIZ ATION 02/25/2024 [facility] EPIC Reason for Visit (unrecogniz ed section and content) Reason Comments Routine Visit Care Teams (unrecognized sec tion and content) Electrical Equipment Tester Relationship Specialty Start Date End Date Hay Momin MD [address] [id number] PCP - General Family Medicine 08/15/23 FOR [...] BE BASED ON THE PRIMARY CLINICAL RECORDS. [facility] [employer] [facility]. provides no warranty or guarantee of the accuracy or completeness of information in this document.
[2024-04-07 14:56] VITALS: BP 123/64; PULSE 82; TEMP 36.7; O2SAT 98; BMI 27.3
--- NOTE | 2024-04-07 15:11 | US_ITS ---
The [address] [address] Patient Name: BUBBA LARIOS MRN: [id number] date: 2000 Sex: F Assigned Patient Location: ER Current Patient Location: ER Accession/Order Number: [id number] Exam Date: 04/07/2024 16:06 Report Date: 04/07/2024 17:49 At the request of: CARINA XIONG Procedure: US pelvis transvaginal EXAM: ULTRASOUND OF THE PELVIS NON OB LIMITED with TV Duplex: HISTORY: 23-year-old female with bleeding for 1.5 weeks COMPARISON: None. TECHNIQUE: Multiple sonographic images are performed of the pelvis using grayscale, spectral and color Doppler with transvaginal probe. FINDINGS: Uterus: Uterus is anteverted. The uterus measures 9.4 x 4.4 x 5.8 cm. Endometrium: Endometrium is thin measuring 2 mm Hypoechoic area, most likely fluid within the endometrium measures 10 x 3 x 11 mm. Cervix: Closed Ovaries: Right ovary: TV: The right ovary measures 3.4 x 2.0 x 2.5 cm. Peripheral follicles demonstrated. Blood flow: Arterial and venous blood flow demonstrated. RI equals 0.45 Left ovary: TV: The left ovary measures 3.3 x 2.0 x 2.0 cm Normal follicles demonstrated. Blood flow: Arterial and venous blood flow demonstrated. RI equals 0.56 Free fluid: Small amount of free fluid in the cul-de-sac, within physiologic limits of normal. US/US pelvis transvaginal IMPRESSION: 1. Minimal amount of fluid within the otherwise atrophic endometrium. Please note that atrophy can cause bleeding. 2. Otherwise unremarkable ultrasound of the pelvis. Electronically authenticated by: FANNY KOLB Date: 04/07/2024 17:49
--- NOTE | 2024-04-07 15:19 | ED_ITS ---
HPI HPI - General Adult General Chief complaint: Vaginal Bleeding Stated complaint: HEAVY VAGINAL BLEEDING Time Seen by Provider: 04/07/24 14:54 Source: patient Mode of arrival: walk-in Limitations: no limitations History of Present Illness HPI narrative: Patient presents to ED complaining of heavy vaginal bleeding. She is a G2, P1 by 1 month. She had a spontaneous vaginal delivery at full-term without any complications. She said she had her regular bleeding and then the bleeding stopped for about a week and now has started again. She reports that it is heavy and causing cramping and clots. She was concerned because she was getting lightheaded when she stood up and then she had some tunnel vision and cramping in her hands. She came in for further evaluation due to the bleeding and cramping. She is alert and oriented resting comfortably on the bed in no acute distress. She denies any depression or suicidal thoughts. She reports that she is sleeping when she can. Related Data Home Medications ?Medication ?Instructions ?Recorded ?Confirmed bupropion HCl 150 mg tablet,12 hr 150 mg PO DAILY 02/29/24 02/29/24 sustained-release duloxetine 60 mg capsule,delayed 120 mg PO DAILY 02/29/24 02/29/24 release Previous Rx's ?Medication ?Instructions ?Recorded benzocaine 20 %-menthol 0.5 % 1 spray topical Q2H PRN Pain #56 03/02/24 topical aerosol (Dermoplast (with grams menthol)) glycerin-witch bree 12.5 %-50 % 1 pad topical Q2H PRN Pain #40 ea 03/02/24 topical pads (A.E.R. Witch Bree) ibuprofen 800 mg tablet 800 mg PO Q8H PRN Moderate Pain 03/02/24 #60 tabs Allergies Allergy/AdvReac Type Severity Reaction Status Date / Time zolpidem [From Ambien] Allergy Severe hallucinati Verified 02/29/24 04:33 ons Opioid HPI Opioid Management Most Recent Opioid Data: Last Pain Scale 2 03/01/24 12:06 Ur Phencyclidine Scrn Negative (NEGATIVE) 02/28/24 16:00 Review of Systems ROS Status of ROS 10 or more systems reviewed and unremark able except as noted in history and below PFSH PFSH Social History Smoking status: Current every day smoker Exam Narrative Exam Narrative: General: alert, no acute distress Cardiovascular: regular rate and rhythm, normal peripheral perfusion. Respiratory: Lungs CTA, respirations non labored. Extremities: no deformity, no trauma. Neurological: oriented x 4, LOC appropriate for age. Mild suprapubic tenderness on exam no acute abdominal pain no rebound no guarding Constitutional Vital Signs, click to edit/add: Last Vital Signs Temp 98.1 F 04/07/24 14:56 Pulse 82 04/07/24 14:56 Resp 18 04/07/24 14:56 BP 123/64 04/07/24 14:56 Pulse Ox 98 04/07/24 14:56 O2 Del Method Room Air 04/07/24 14:56 Course Vital Signs Vital signs: Vital Signs Temperature 98.1 F 04/07/24 14:56 Pulse Rate 82 04/07/24 14:56 Respiratory Rate 18 04/07/24 14:56 Blood Pressure 123/64 04/07/24 14:56 Pulse Oximetry 98 04/07/24 14:56 Oxygen Delivery Method Room Air 04/07/24 14:56 Temperature 98.1 F 04/07/24 14:56 Pulse Rate 82 04/07/24 14:56 Respiratory Rate 18 04/07/24 14:56 Blood Pressure 123/64 04/07/24 14:56 Pulse Oximetry 98 04/07/24 14:56 Oxygen Delivery Method Room Air 04/07/24 14:56 Medical Decision Making MDM Narrative Medical decision making narrative: Patient's labs are nonacute. She is not anemic. Vaginal ultrasound shows normal physiological fluid but does not show any retained products. Patient was instructed to follow-up with her [employer]. Call tomorrow to make an appointment. Return to the emergency room if worsening bleeding. Take Tylenol Motrin for pain. Differential Diagnosis Differential Diagnosis: Anemia, retained products of conception, dysfunctional uterine bleeding Medical Records Medical records reviewed: Yes I reviewed the patient's medical records Lab Data Lab results reviewed: Yes I reviewed the patient's lab results Labs: Lab Results 04/07/24 04/07/24 Range/Units 15:10 15:52 WBC 7.7 (4.0-11.0) 10^3/uL RBC 4.11 L (4.20-5.40) 10^6/uL Hgb 12.5 (12.0-16.0) g/dL Hct 37.2 (36.0-48.0) % MCV 90.5 (81.0-99.0) fL MCH 30.4 (26.7-34.0) pg MCHC 33.6 (29.9-35.2) g/dL RDW 12.4 (11.0-15.0) % Plt Count 275 (150-450) 10^3/uL MPV 10.1 (9.5-13.5) fL Neut % (Auto) 53.8 (43.0-75.0) % Lymph % (Auto) 38.9 (20.5-60.0) % [place] % (Auto) 5.0 (1.7-12.0) % Eos % (Auto) 1.9 (0.9-7.0) % Baso % (Auto) 0.3 (0.2-2.0) % Neut # (Auto) 4.2 (1.4-6.5) 10^3/uL Lymph # (Auto) 3.0 (1.2-3.8) 10^3/uL [place] # (Auto) 0.4 (0.3-0.8) 10^3/uL Eos # (Auto) 0.2 (0.0-0.7) 10^3/uL Baso # (Auto) 0.0 (0.0-0.1) 10^3/uL Abs Immat Gran (auto) 0.01 (0.00-0.03) 10^3/uL Imm/Tot Granulo (auto) 0.1 (0.0-0.5) % Sodium 143 (136-145) mmol/L Potassium 3.4 L (3.5-5.1) mmol/L Chloride 108 H (98-107) mmol/L Carbon Dioxide 26.1 (21.0-32.0) mmol/L Anion Gap 12.3 BUN 8.0 (7.0-18.0) mg/dL Creatinine 0.75 (0.55-1.02) mg/dL Est GFR ( Amer) >60 (>=60) Est GFR (Non-Af Amer) >60 (>=60) BUN/Creatinine Ratio 10.7 Glucose 125 H (74-106) mg/dL Calcium 8.7 (8.5-10.1) mg/dL Magnesium 2.1 (1.8-2.4) mg/dL Total Bilirubin 0.3 (0.2-1.0) mg/dL AST 14 L (15-37) U/L ALT 32 (14-59) U/L Alkaline Phosphatase 82 (46-116) U/L Total Protein 5.7 L (6.4-8.2) g/dL Albumin 3.1 L (3.4-5.0) g/dL Globulin 2.6 g/dL Albumin/Globulin Ratio 1.2 Imaging Data US - abdomen: Radiologist's impression: ITS Impressions Transvaginal US 04/07/24 15:11 IMPRESSION: 1. Minimal amount of fluid within the otherwise atrophic endometrium. Please note that atrophy can cause bleeding. 2. Otherwise unremarkable ultrasound of the pelvis. Electronically authenticated by: FANNY KOLB Date: 04/07/2024 17:49 Discharge Plan Discharge Stand Alone Forms: Portal Instructions Chief Complaint: Vaginal Bleeding Clinical Impression: Vaginal bleeding Patient Disposition: Home, Self-Care Time of Disposition Decision: 17:55 Mode of Transportation: Private Vehicle Prescriptions / Home Meds: No Action bupropion HCl 150 mg tablet sustained-release 12 hr 150 mg PO DAILY duloxetine 60 mg capsule,delayed release(DR/EC) 120 mg PO DAILY Dermoplast (with menthol) 20-0.5 % Aerosol 1 spray topical Q2H PRN (Reason: Pain) Qty: 56 1RF A.E.R. Witch Bree 12.5-50 % Pads, Medicated 1 pad topical Q2H PRN (Reason: Pain) Qty: 40 1RF ibuprofen 800 mg tablet 800 mg PO Q8H PRN (Reason: Moderate Pain) Qty: 60 0RF Print Language: Belgian Referrals: Physician,Non-Staff, MD [Primary Care Provider] - 1 week Asaf Pack DO [Physician] - 1 week
[2024-04-07] MEDS: 0.9 % SODIUM CHLORIDE 1,000 ML 1000 ML IV (15:24)
[2024-04-07 15:35] LABS: Basophils Percent Auto 0.3 % (0.2-2.0); Eosinophils Absolute Auto 0.2 10^3/uL (0.0-0.7); Eosinophils Percent Auto 1.9 % (0.9-7.0); Hematocrit 37.2 % (36.0-48.0); Hemoglobin 12.5 g/dL (12.0-16.0); Immature Granulocytes Abs Auto 0.01 10^3/uL (0.00-0.03); Immature Granulocytes Pct Auto 0.1 % (0.0-0.5); Lymphocytes Percent Auto 38.9 % (20.5-60.0); Mean Corpuscular HGB Conc 33.6 g/dL (29.9-35.2); Mean Corpuscular Hemoglobin 30.4 pg (26.7-34.0); Mean Corpuscular Volume 90.5 fL (81.0-99.0); Mean Platelet Volume 10.1 fL (9.5-13.5); Monocytes Absolute Auto 0.4 10^3/uL (0.3-0.8); Neutrophils Absolute Auto 4.2 10^3/uL (1.4-6.5); Neutrophils Percent Auto 53.8 % (43.0-75.0); Platelet Count 275 10^3/uL (150-450); Red Blood Count 4.11 10^6/uL (4.20-5.40); Red Cell Distribution Width 12.4 % (11.0-15.0); White Blood Count 7.7 10^3/uL (4.0-11.0)
[2024-04-07 16:16] LABS: Alanine Aminotransferase 32 U/L (14-59); Albumin Globulin Ratio 1.2; Albumin Level 3.1 g/dL (3.4-5.0); Alkaline Phosphatase 82 U/L (46-116); Anion Gap 12.3; Aspartate Amino Transferase 14 U/L (15-37); BUN Creatinine Ratio 10.7; Bilirubin Total 0.3 mg/dL (0.2-1.0); Calcium 8.7 mg/dL (8.5-10.1); Carbon Dioxide 26.1 mmol/L (21.0-32.0); Chloride 108 mmol/L (98-107); Estimated GFR (African America >60 (>=60); Estimated GFR (Non-African Ame >60 (>=60); Globulin 2.6 g/dL; Glucose 125 mg/dL (74-106); Magnesium 2.1 mg/dL (1.8-2.4); Potassium 3.4 mmol/L (3.5-5.1); Sodium 143 mmol/L (136-145); Total Protein 5.7 g/dL (6.4-8.2)
[2024-04-07] MEDS: POTASSIUM CHLORIDE 10 MEQ ER TABLET 20 MEQ PO (16:43)
[2024-04-07 18:08] VITALS: BP 109/62; PULSE 65; TEMP 36.7; O2SAT 97
== END 2024-04-07 18:11 | disposition home or self-care (01) ==
PROVIDERS: Emergency Provider Emergency Medicine
DX: O72.1 Other immediate postpartum hemorrhage (principal); O99.335 Smoking (tobacco) complicating the puerperium; F17.210 Nicotine dependence, cigarettes, uncomplicated; Z79.899 Other long term (current) drug therapy
CPT/HCPCS: 36415; 76830; 80053; 83735; 85025; 99284

== ENCOUNTER 2024-11-18 16:18 | Emergency (ER) | payer OTHER, MEDICAID, SELFPAY ==
[2024-11-18 16:24] VITALS: BP 124/78; PULSE 99; TEMP 36.6; O2SAT 98; BMI 34.0
[2024-11-18] MEDS: AZITHROMYCIN 250 MG TABLET 500 MG PO (16:48)
--- NOTE | 2024-11-18 16:52 | ED.GENADUL1 ---
HPI HPI - General Adult General Chief complaint: Upper Respiratory Infection Stated complaint: SORE THROAT, DEHYDRATION POSS Time Seen by Provider: 11/18/24 16:28 Source: patient Mode of arrival: walk-in Limitations: no limitations History of Present Illness HPI narrative: The patient presented to us with more than 5 days history of upper respiratory tract infection symptoms of nasal congestion and a cough, the patient denies any difficulty breathing but she started having pain in her right ear for the last few days and is not getting better with [id number] medication Patient denies any other concerns Related Data Home Medications ?Medication ?Instructions ?Recorded ?Confirmed bupropion HCl 150 mg tablet,12 hr 150 mg PO DAILY 02/29/24 02/29/24 sustained-release duloxetine 60 mg capsule,delayed 120 mg PO DAILY 02/29/24 02/29/24 release Previous Rx's ?Medication ?Instructions ?Recorded benzocaine 20 %-menthol 0.5 % 1 spray topical Q2H PRN Pain #56 03/02/24 topical aerosol (Dermoplast (with grams menthol)) glycerin-witch bree 12.5 %-50 % 1 pad topical Q2H PRN Pain #40 ea 03/02/24 topical pads (A.E.R. Witch Bree) ibuprofen 800 mg tablet 800 mg PO Q8H PRN Moderate Pain 03/02/24 #60 tabs azithromycin 250 mg tablet See Rx Instructions PO .COMPLEX #6 11/18/24 (Zithromax Z-Hugo) tabs Allergies Allergy/AdvReac Type Severity Reaction Status Date / Time zolpidem (From Ambien) Allergy Severe hallucinati Verified 02/29/24 04:33 ons Opioid HPI Opioid Management Most Recent Opioid Data: Last Pain Scale 2 03/01/24 12:06 03/01/24 Ur Phencyclidine Scrn Negative (NEGATIVE) 02/28/24 16:00 02/28/24 Review of Systems ROS Status of ROS 10 or more systems reviewed and unremarkable except as noted in history and below PFSH PFSH Social History Smoking status: Current every day smoker Little interest or pleasure in doing things: not at all Feeling down, depressed, or hopeless: not at all Exam Narrative Exam Narrative: Nurses notes and vital signs reviewed and patient is not hypoxic. General: Well-appearing and in no apparent distress. Skin: Warm, dry, no pallor noted. No rash. Head: Normocephalic, atraumatic. Neck: Supple, non-tender. Eye: Pupils are equal, round and EOMI. No scleral icterus. Ears, Nose, Mouth, and Throat: Right ear tympanic membrane showed that the patient have a bulging tympanic membrane with a serous fluid behind and mild erythema left ear examination was benign, oral mucosa is moist, no posterior oropharynx erythema, uvula is mid-line Cardiovascular: Regular Rate and Rhythm without murmur, gallop or rub. Respiratory: No accessory muscle use or respiratory distress. Lungs are clear to auscultation, no wheezing, rales or rhonchi Chest Wall: no tenderness Back: No midline thoracic or lumbar vertebral tenderness. No CVA tenderness Musculoskeletal: normal ROM, no calf or popliteal tenderness, no lower extremity edema/swelling GI: Abdomen is soft, non-distended. Normal bowel sounds. No masses appreciated. No tenderness to palpation. No rebound, guarding, or rigidity noted. Neurological: A&O x4. No cranial nerve dysfunction observed. No truncal ataxia. Moves all extremities. Sensation intact. Psychiatric: Cooperative and interactive. Normal mood and affect. Constitutional Vital Signs, click to edit/add: Last Vital Signs Temp 98 F 11/18/24 16:24 Pulse 99 H 11/18/24 16:24 Resp 18 11/18/24 16:24 BP 124/78 11/18/24 16:24 Pulse Ox 98 11/18/24 16:24 O2 Del Method Room Air 11/18/24 16:24 Course Vital Signs Vital signs: Vital Signs Temperature 98 F 11/18/24 16:24 Pulse Rate 99 H 11/18/24 16:24 Respiratory Rate 18 11/18/24 16:24 Blood Pressure 124/78 11/18/24 16:24 Pulse Oximetry 98 11/18/24 16:24 Oxygen Delivery Method Room Air 11/18/24 16:24 Temperature 98 F 11/18/24 16:24 Pulse Rate 99 H 11/18/24 16:24 Respiratory Rate 18 11/18/24 16:24 Blood Pressure 124/78 11/18/24 16:24 Pulse Oximetry 98 11/18/24 16:24 Oxygen Delivery Method Room Air 11/18/24 16:24 Medical Decision Making [facility] Narrative Medical decision making narrative: The patient presented to us with otitis media she will be covered with azithromycin and continue supportive care The patient is to follow up with primary care physician in next 2-3 days or to return to the emergency department should any of the signs or symptoms worsen or new symptoms develop. The patient agrees with the following Diagnosis and Treatment plan and the patient will be discharged home. Discharge Plan Discharge Chief Complaint: Upper Respiratory Infection Clinical Impression: Otitis media, Bronchitis Patient Disposition: Home, Self-Care Time of Disposition Decision: 16:38 Condition: Good Prescriptions / Home Meds: New azithromycin [Zithromax Z-Hugo] 250 mg tablet See Rx Instructions .ROUTE .COMPLEX Qty: 6 0RF Rx Instructions: For 250 mg dose pack: take 500 mg today (day 1), then 250 mg for 4 days (days 2-5) No Action bupropion HCl 150 mg tablet sustained-release 12 hr 150 mg PO DAILY duloxetine 60 mg capsule,delayed release(DR/EC) 120 mg PO DAILY Dermoplast (with menthol) 20-0.5 % Aerosol 1 spray topical Q2H PRN (Reason: Pain) Qty: 56 1RF A.E.R. Witch Bree 12.5-50 % Pads, Medicated 1 pad topical Q2H PRN (Reason: Pain) Qty: 40 1RF ibuprofen 800 mg tablet 800 mg PO Q8H PRN (Reason: Moderate Pain) Qty: 60 0RF Print Language: Belarusian Instructions: Ear Infection (ED) Referrals: DIVINA MOMIN [Primary Care Provider] - 1 week
== END 2024-11-18 16:52 | disposition home or self-care (01) ==
PROVIDERS: Emergency Provider Emergency Medicine; PCP Family Medicine
DX: J40 Bronchitis, not specified as acute or chronic (principal); H66.91 Otitis media, unspecified, right ear; F17.200 Nicotine dependence, unspecified, uncomplicated
CPT/HCPCS: 99283

== ENCOUNTER 2025-05-25 20:47 | Emergency (ER) | payer OTHER, MEDICAID, SELFPAY ==
[2025-05-25] VITALS (9 sets, daily range): BP systolic 112–146; BP diastolic 62–112; PULSE 67–95; TEMP 37; O2SAT 97–99; BMI 36.0
--- OUTSIDE RECORDS SUMMARY | 2025-05-25 21:00 | XMS_ITS | CCD ---
Author Organization [facility] Care Team Providers Care Public Health Analyst Name Role Phone KEL LEONARD Primary Care Unavailable LILIANE, DR HAY Sierraitting Unavailable LILIANE, [...] Primary Care Provider JOANA FREY Attending Unavailable JOANA FREY Attending Unavailable KRAIG PACK Attending Unavailable Allergies Allergy Classification Reported Allergen(s) Allergy Type Date of Onset Reaction(s) Facility (4 sources) zolpidem Drug Allergy 6 [facility] Medications Current Medications Medication Drug Class(es) Dates Sig (Normalized) Sig (Original) 12 hr buPROPion hydrochloride 150 mg extended release oral tablet (4 sources) Aminoketone Start: 12-02-2023 End: 03-01-2024 buPROPion SR (Wellbutrin SR) 150 MG 12 hr tablet Indications: Anxiety with depression Take 1 tablet (150 mg) by mouth in the morning. Take 1 tablet daily for 3 days, then take 1 tablet daily for 4 days. Quit smoking on day 7 and continue to take medication twice daily.. 90 tablet 0 12/02/2023 03/01/2024 Active Start: 09-02-2023 End: 01-17-2025 take 1 tablet by mouth once daily buPROPion XL (Wellbutrin XL) 300 MG 24 hr tablet Take 300 mg by mouth Daily 09/02/2023 01/17/2025 Discontinued (Other) cephalexin 500 mg oral capsule (3 sources) Cephalosporin Antibacterial Start: 01-17-2025 End: 01-24-2025 take 1 capsule by mouth in the morning, then take 1 capsule by mouth in the evening, then take 1 capsule by mouth at bedtime cephalexin (Keflex) 500 MG capsule Indications: UTI symptoms Take 1 capsule (500 mg) by mouth in the morning and 1 capsule (500 mg) in the evening and 1 capsule (500 mg) before bedtime. Do all this for 7 days. 21 capsule 01/17/2025 01/24/2025 Active Start: 12-29-2023 take 1 capsule by mo uth in the morning cephalexin (Keflex) 500 MG capsule Take 500 mg by mouth in the morning and 500 mg before bedtime. 0 12/29/2023 Active levonorgestrel 0.960559 mg/hr intrauterine system (4 sources) Progestin, Progestin-containing Intrauterine Device Start: 04-27-2024 Levonorgestrel intrauterine device lumateperone 42 mg oral capsule (4 sources) Start: 03-29-2024 take 1 capsule by mouth once daily Caplyta 42 MG capsule Take 1 capsule by mouth Daily 03/29/2024 Active ondansetron 4 mg disintegrating oral tablet (5 sources) Serotonin-3 Receptor Antagonist Start: 08-01-2023 take 1 tablet by mouth every eight hours as needed ondansetron ODT (Zofran-ODT) 4 MG disintegrating tablet Take 4 mg by mouth every 8 (eight) hours if needed. 08/01/2023 Active MV-Min-Fe Fum-FA-DHA ( 1 PO) (5 sources) MV-Min- Fe Fum-FA-DHA ( 1 PO) Take 1 each by mouth in the morning. Active MV-Min- Fe Fum-FA-DHA ( 1 PO) Take 1 each by mouth in the morning. 0 Active QUEtiapine (3 sources) Atypical Antipsychotic QUEtiapin e Fumarate (SEROQUEL XR PO) Take by mouth 10mg Active Completed/Discontinued Medications Medication Drug Class(es) Dates Sig (Normalized) Sig (Original) citalopram 20 mg oral tablet (3 sources) Serotonin Reuptake Inhibitor Start: 04-27-2024 End: 04-27-2025 take 1 tablet by mouth once daily citalopram (CeleXA) 20 MG tablet Indications: Mood swings Take 1 tablet (20 mg) by mouth Daily 30 tablet 11 04/27/2024 01/17/2025 Discontinued (Other) Problems Active Problems Problem Classification Problem Date Documented Date Episodic/Chronic Genitourinary symptoms and ill-defined conditions (2 sources) Urinary symptoms ; Translations: [Unspecified symptoms and signs involving the genitourinary system] 01-17-2025 Episodic Mood disorders (1 source) Bipolar disorder, unspecified; Translations: [BIPOLAR DISORDER UNSPECIFIED] Onset: 11-19-2021 Chronic Other complications of (2 sources) Other mental disorders complicating the puerperium; Translations: [Mental disorders of mother, condition or complication] 01-17-2025 Episodic Other and delivery including normal (1 source) [...] te Episodic/Chronic Other aftercare (1 source) Other prosthodontist (current) drug therapy; Translations: [OTH EMPLOYMENT COORDINATOR CURRENT DRUG THERAPY] Onset: 11-19-2021 Episodic Other [...] Facil ity Urinalysis macro (dipstick) panel (U)on 01-17-2025 Bilirubin, UA Negative Negative - 4(70) +++ mg/dL [facility] Healthcare Blood, UA Negative Negative - 50 Zach/mcL [facility] Clarity, UA Clear [facility] Color, UA Yellow [facility] Glucose, UA Negative Negative - 1999(110) ++++ mg/dL [facility] Interpretation and review of laboratory results Abnormal [facility] Ketones, UA Negative Negative - 160(16) ++++ mg/dL [facility] Leukocytes, UA Negative Negative - 500+++ Nalini/mcL [facility] Nitrite, UA Positive Negative - Positive [facility] pH, UA 7 5 - 9 [facility] Protein, UA Negative Negative - 1999(20) ++++ mg/dL [facility] Spec Grav, UA 1.025 1 - 1.03 [facility] Urobilinogen, UA 1.0 0.2 - 12 mg/dL [facility] Urinalysis macro (dipstick) panel (U)on 12-30-2023 Bilirubin, UA Negative Negative - 4(70) +++ mg/dL [facility] Blood, UA Negative Negative - 50 Zach/mcL [facility] Clarity, UA Clear [facility] Color, UA Yellow [facility] Glucose, UA Negative Negative - 1999(110) ++++ mg/dL [facility] Interpretation and review of laboratory results Normal [facility] Ketones, UA Negative Negative - 160(16) ++++ mg/dL [facility] Leukocytes, UA Negative Negative - 500+++ Nalini/mcL [facility] Nitrite, UA Negative Negative - Positive [facility] pH, UA 6.5 5 - 9 [facility] Protein, UA Negative Negative - 1999(20) ++++ mg/dL [facility] Healthcare Spec Grav, UA 1.010 1 - 1.03 [facility] care Urobilinogen, UA 0.2 0.2 - 12 mg/dL [facility] CULTURE URINEon 05-23-2022 CULTURE URINE [...] Trimethoprim/Sulfam ethoxazole <=20 S F Normal [facility] Comment on above: Performed By: #### U RCX #### [facility] [address] [place] [address] Dr. Mike Alcocer ER URINE PROFILEon 2 Bilirubin Ql (U) Negative Normal NEGATIVE [facility] Comment on above: Performed By: #### U MICRO, ERUR, PREGU #### [facility] [address] [place] [address] Dr. Mike Alcocer Clarity (U) CLEAR Normal CLEAR [facility] Comment on above: Performed By: #### U MICRO, ERUR, PREGU #### [facility] [address] [place] [address] Dr. Mike Alcocer Color (U) LT. YELLOW Normal YELLOW [facility] Comment on above: Performed By: #### U MICRO, ERUR, PREGU #### [facility] [address] [place] [address] Dr. Mike CUEVAS A micrscopic examination will be performed if indicated. Normal [facility] Comment on above: Performed By: #### U MICRO, ERUR, PREGU #### [facility] [address] [place] [address] Dr. Mike Alcocer Glucose Ql (U) Negative Normal NEGATIVE [facility] Comment on above: Performed By: #### U MICRO, ERUR, PREGU #### [facility] [address] [place] [address] Dr. Mike Alcocer Hemoglobin Ql (U) LARGE Abnormal NEGATIVE [facility] Comment on above: Performed By: #### U MICRO, ERUR, PREGU #### [facility] [address] [place] [address] Dr. Mike Alcocer Ketones Ql (U) Negative Normal NEGATIVE [facility] Comment on above: Performed By: #### U MICRO, ERUR, PREGU #### [facility] [address] [address] [address] Mike Alcocer LEUKOCYTES Negative Normal NEGATIVE [facility] Comment on above: Performed By: #### U MICRO, ERUR, PREGU #### [facility] [address] [address] [address] Mike Alcocer Nitrite Ql (U) Positive Abnormal NEGATIVE [facility] Comment on above: Performed By: #### U MICRO, ERUR, PREGU #### [facility] [address] [address] [address] Mike Alcocer pH (U) 6.5 [pH] Normal 5-9 [facility] Comment on above: Performed By: #### U MICRO, ERUR, PREGU #### [facility] [address] [address] [address] Mike Alcocer SPEC GRAVITY 1.025 Normal 1.005-<=1.025 [facility] Comment on above: Performed By: #### U MICRO, ERUR, PREGU #### [facility] [address] [address] [address] Mike Alcocer UA PROTEIN Negative Normal NEGATIVE/ TRACE [facility] Comment on above: Performed By: #### U MICRO, ERUR, PREGU #### [facility] [address] [address] [address] Mike Alcocer UR MICRO IND INDICATED Normal [facility] Comment on above: Performed By: #### U MICRO, ERUR, PREGU #### [facility] [address] [address] [address] Mike Alcocer Urobilinogen Qn (U) 0.2 {Molly'U}/dL Normal 0.2 - 1. 0 [facility] Comment on above: Performed By: #### U MICRO, ERUR, PREGU #### [facility] [address] [address] [address] Mike Alcocer URon 05-21-2022 , QUAL Negative Normal NEGATIVE [facility] Comment on above: Performed By: #### U MICRO, ERUR, PREGU #### [facility] [address] [address] [address] Mike Alcocer URINE MICROSCOPIC ONLYon BACTERIA MODERATE Abnormal NONE SEEN [facility] Comment on above: Performed By: #### U MICRO, ERUR, PREGU #### [facility] [address] [address] [address] Mike Alcocer Bacteria identified Cx Nom (U) INDICATED Normal [facility] Comment on above: Performed By: #### U MICRO, ERUR, PREGU #### [facility] [address] [address] [address] Mike Alcocer CAST NONE SEEN Normal NONE SEEN [facility] Comment on above: Performed By: #### U MICRO, ERUR, PREGU #### [facility] [address] [address] [address] Mike Alcocer Crystals LM Nom (Urine sed) NONE SEEN Normal NONE SEEN [facility] Comment on above: Performed By: #### U MICRO, ERUR, PREGU #### [facility] [address] [address] [address] Mike Alcocer Epithelial cells LM Ql (Urine sed) FEW Abnormal NONE SEEN /RARE [facility] Comment on above: Performed By: #### U MICRO, ERUR, PREGU #### [facility] [address] [address] [address] Mike Alcocer MUCOUS NONE SEEN Normal NONE SEEN [facility] Comment on above: Performed By: #### U MICRO, ERUR, PREGU #### [facility] [address] [address] [address] Mike Alcocer RBC 10-20 Abnormal 0-2 [facility] Comment on above: Performed By: #### U MICRO, ERUR, PREGU #### [facility] [address] [address] [address] Mike Alcocer WBC 2-5 Abnormal NONE SEEN [facility] Comment on above: Performed By: #### U MICRO, ERUR, PREGU #### [facility] [address] [place] [address] Dr. Mike Alcocer CBC AUTO DIFFon 02-14-2022 BASO # 0.1 103/ul Normal 0.0-0.1 [facility] Comment on above: Performed By: #### C MP, TSH, T4 #### [facility] [address] [place] [address] Dr. Mike Alcocer Basophils/100 WBC (Bld) 0.7 % Normal 0.2-2.0 [facility] Comment on above: Performed By: #### C MP, TSH, T4 #### [facility] [address] [place] [address] Dr. Mike Alcocer EO # 0.3 103/ul Normal 0.0-0.7 [facility] Comment on above: Performed By: #### C MP, TSH, T4 #### [facility] [address] [place] [address] Dr. Mike Alcocer Eosinophils/100 WBC (Bld) 3.5 % Normal 0.9-7.0 [facility] Comment on above: Performed By: #### C MP, TSH, T4 #### [facility] [address] [place] [address] Dr. Mike Alcocer Erythrocyte distribution width (RBC) [Ratio] 13.2 % Normal 11.0-15.0 [facility] Comment on above: Performed By: #### C MP, TSH, T4 #### [facility] [address] [place] [address] Dr. Mike Alcocer Hematocrit (Bld) [Volume fraction] 40.1 % Normal 36.0-48.0 [facility] Comment on above: Performed By: #### C MP, TSH, T4 #### [facility] [address] [place] [address] Dr. Mike Alcocer Hemoglobin (Bld) [Mass/Vol] 13.7 g/dL Normal 12.0-16.0 [facility] Comment on above: Performed By: #### C MP, TSH, T4 #### [facility] [address] [place] [address] Dr. Mike Alcocer IG # 0.03 10e3/ul Normal 0.00-0.03 [facility] Comment on above: Performed By: #### C MP, TSH, T4 #### [facility] [address] [place] [address] Dr. Mike Alcocer IG % 0.4 % Normal 0.0-0.5 [facility] Comment on above: Performed By: #### C MP, TSH, T4 #### [facility] [address] [place] [address] Dr. Mike Alcocer LYMPH # 2.5 103/ul Normal 1.2-3.8 [facility] Comment on above: Performed By: #### C MP, TSH, T4 #### [facility] [address] [place] [address] Dr. Mike Alcocer Lymphocytes/100 WBC (Bld) 34.6 % Normal 20.5-60.0 [facility] Comment on above: Performed By: #### C MP, TSH, T4 #### [facility] [address] [place] [address] Dr. Mike Alcocer MANUAL DIFF REQ NO Normal [facility] Comment on above: Performed By: #### C MP, TSH, T4 #### [facility] [address] [place] [address] Dr. Mike Alcocer MCH (RBC) [Entitic mass] 29.3 pg Normal 26.7-34.0 [facility] Comment on above: Performed By: #### C MP, TSH, T4 #### [facility] [address] [place] [address] Dr. Mike Alcocer MCHC (RBC) [Mass/Vol] 34.2 g/dL Normal 29.9-35.2 [facility] Comment on above: Performed By: #### C MP, TSH, T4 #### [facility] [address] [place] [address] Dr. Mike Alcocer MCV (RBC) [Entitic vol] 85.9 fL Normal 81.0-99.0 [facility] Comment on above: Performed By: #### C MP, TSH, T4 #### [facility] [address] [place] [address] Dr. Mike Aloccer MONO # 0.3 103/ul Normal 0.3-0.8 [facility] Comment on above: Performed By: #### C MP, TSH, T4 #### [facility] [address] [place] [address] Dr. Mike Alcocer Monocytes/100 WBC (Bld) 3.5 % Normal 1.7-12.0 [facility] Comment on above: Performed By: #### C MP, TSH, T4 #### [facility] [address] [place] [address] Dr. Mike Alcocer NEUT # 4.2 103/ul Normal 1.4-6.5 [facility] Comment on above: Performed By: #### C MP, TSH, T4 #### [facility] [address] [place] [address] Dr. Mike Alcocer Neutrophils/100 WBC (Bld) 57.3 % Normal 43.0-75.0 [facility] Comment on above: Performed By: #### C MP, TSH, T4 #### [facility] [address] [place] [address] Dr. Mike Alcocer Platelet mean volume (Bld) [Entitic vol] 9.2 fL Critically low 9.5-13.5 [facility] Comment on above: Performed By: #### C MP, TSH, T4 #### [facility] [address] [place] [address] Dr. Mike Alcocer PLT 341 103/ul Normal 150-450 [facility] Comment on above: Performed By: #### C MP, TSH, T4 #### [facility] [address] [place] [address] Dr. Mike Alcocer RBC 4.67 106/ul Normal 4.20-5.40 [facility] Comment on above: Performed By: #### C MP, TSH, T4 #### [facility] [address] [place] [address] Dr. Mike Alcocer WBC 7.2 103/ul Normal 4.0-11.0 [facility] Comment on above: Performed By: #### C MP, TSH, T4 #### [facility] [address] [address] [address] Mike Alcocer PROF 14(COMP METB)on 022 Albumin [Mass/Vol] 3.9 g/dL Normal 3.4-5.0 [facility] Comment on above: Performed By: #### C MP, TSH, T4 #### [facility] [address] [address] [address] Mike Alcocer Albumin/Globulin [Mass ratio] 1.1 {ratio} Normal [facility] Comment on above: Performed By: #### C MP, TSH, T4 #### [facility] [address] [address] [address] Mike Alcocer ALP [Catalytic activity/Vol] 115 U/L Normal 46-116 [facility] Comment on above: Performed By: #### C MP, TSH, T4 #### [facility] [address] [address] [address] Mike Alcocer ALT [Catalytic activity/Vol] 28 U/L Normal 14-59 [facility] Comment on above: Performed By: #### C MP, TSH, T4 #### [facility] [address] [address] [address] Mike Alcocer Anion gap [Moles/Vol] 14.8 mmol/L Normal [facility] Comment on above: Performed By: #### C MP, TSH, T4 #### [facility] [address] [address] [address] Mike Alcocer AST [Catalytic activity/Vol] 19 U/L Normal 15-37 [facility] Comment on above: Performed By: #### C MP, TSH, T4 #### [facility] [address] [address] [address] Mike Alcocer Bilirubin [Mass/Vol] 0.4 mg/dL Normal 0.2-1.3 [facility] Comment on above: Performed By: #### C MP, TSH, T4 #### [facility] [address] [address] [address] Mike Alcocer Calcium [Mass/Vol] 9.1 mg/dL Normal 8.5-10.1 [facility] Comment on above: Performed By: #### C MP, TSH, T4 #### [facility] [address] [place] [address] Dr. Mike Alcocer Chloride [Moles/Vol] 102 mmol/L Normal 98-107 [facility] Comment on above: Performed By: #### C MP, TSH, T4 #### [facility] [address] [place] [address] Dr. Mike Alcocer CO2 [Moles/Vol] 25.8 mmol/L Normal 22.0-30.0 [facility] Comment on above: Performed By: #### C MP, TSH, T4 #### [facility] [address] [place] [address] Dr. Mike Alcocer Creatinine [Mass/Vol] 0.84 mg/dL Normal 0.52-1.04 [facility] Comment on above: Performed By: #### C MP, TSH, T4 #### [facility] [address] [place] [address] Dr. Mike Alcocer EGFR-AF PERUVIAN >60 Normal >=60 [facility] Comment on above: Performed By: #### C MP, TSH, T4 #### [facility] [address] [place] [address] Dr. Mike Alcocer EGFR-NON AF PERUVIAN >60 Normal >=60 [facility] Comment on above: Performed By: #### C MP, TSH, T4 #### [facility] [address] [place] [address] Dr. Mike Alcocer Globulin (S) [Mass/Vol] 3.4 g/dL Normal [facility] Comment on above: Performed By: #### C MP, TSH, T4 #### [facility] [address] [place] [address] Dr. Mike Alcocer Glucose [Mass/Vol] 98 mg/dL Normal 74-106 [facility] Comment on above: Performed By: #### C MP, TSH, T4 #### [facility] [address] [place] [address] Dr. Mike Alcocer Potassium [Moles/Vol] 3.6 mmol/L Normal 3.4-5.0 [facility] Comment on above: Performed By: #### C MP, TSH, T4 #### [facility] [address] [place] [address] Dr. Mike Alcocer Protein [Mass/Vol] 7.3 g/dL Normal 6.1-8.2 [facility] Comment on above: Performed By: #### C MP, TSH, T4 #### [facility] [address] [place] [address] Dr. Mike Alcocer Sodium [Moles/Vol] 139 mmol/L Normal 137-145 [facility] Comment on above: Performed By: #### C MP, TSH, T4 #### [facility] [address] [place] [address] Dr. Mike Alcocer Urea nitrogen [Mass/Vol] 7.0 mg/dL Normal 7.0-18.0 [facility] Comment on above: Performed By: #### C MP, TSH, T4 #### [facility] [address] [place] [address] Dr. Mike Alcocer Urea nitrogen/Creatinine [Mass ratio] 8.3 mg/mg Normal [facility] Comment on above: Performed By: #### C MP, TSH, T4 #### [facility] [address] [place] [address] Dr. Mike Alcocer T4on 02-14-2022 T4 [Mass/Vol] 7.80 ug/dL Normal 5.53-11.[address] [facility] Comment on above: Performed By: #### C MP, TSH, T4 #### [facility] [address] [place] [address] Dr. Mike Alcocer TSHon 02-14-2022 TSH 1.071 uIU/mL Normal 0.470-4.[address] [facility] Comment on above: Performed By: #### C MP, TSH, T4 #### [facility] [address] [place] [address] Dr. Mike Alcocer TSH RANGE SEE BELOW Normal [facility] Comment on above: Result Comment: <0.3 4 UIU/ml HYPERTHYROID 0.34-5.60 UIU/ml EUTHYROID >5.60 UIU/ml HYPOTHYROID Performed By: #### C MP, TSH, T4 #### [facility] [address] [place] [address] Dr. Mike Alcocer CULTURE THROATon 11-16-2021 CULTURE THROAT Isolate 1 Haemophilus influenzae Heavy growth of Normal [facility] Comment on above: Performed By: #### C MP, TSH, T4 #### [facility] [address] [place] [address] Dr. Mike Alcocer Covid-19 PCR ([facility])on 10-25 SARS-CoV-2 (COVID-19) RNA RUSTY+probe Ql (Unsp spec) Not detected Normal NOT DETECTED [facility] Comment on above: Result Comment: This test is not yet approved or cleared by the [place] FDA. When there are no FDA-approved or cleared tests available, and other criteria are met, FDA can make tests available under an emergency access mechanism called an Emergency Use Authorization (EUA). The EUA for this test is supported by the [place] of Health and Human Service's (HHS's) declaration [...] SARS-CoV-2. Performed By: #### C VDTBH #### [facility] [address] [place], [place] [id number] Dr. Mike Alcocer STREPT SCREENon 11-16-2021 STREP SCREEN A Negative Normal NEGATIVE [facility] Comment on above: Performed By: #### S SCRN, THRTCX #### [facility] [address] [place], [place] [id number] Dr. Mike Alcocer Vital Signs Date Time Vital Sign Value Performing Clinician Faci lity 01-17-2025 16:13-0500 Body weight 95.25 kg Joana Frey PA Work Phone: [facility] 12-30-2023 15:07-0500 Body weight 98.88 kg Joana Frey PA Work Phone: [facility] 12-30-2023 15:07-0500 Diastolic blood pressure 70 mm[Hg] Joana Frey PA Work Phone: [facility] 12-30-2023 15:07-0500 Systolic blood pressure 118 mm[Hg] Joana Frey PA Work Phone: [facility] Healthcare Encounters Encounter Date Encounter Type Care Provider Facility Start: 03-31-2025 End: 03-31-2025 Bamboo flowsheet Joana Frey PA Work Phone: [facility] Start: 03-31-2025 End: 03-31-2025 Bamboo flowsheet Joana Frey PA Work Phone: [facility] Start: 01-17-2025 End: 01-17-2025 Office outpatient visit 10 minutes Joana WILCOX Work Phone: [facility] Comment on above: anxiety; UTI symptoms Start: 01-17-2025 End: 01-17-2025 ambulatory JOANA FREY Not Available Start: 01-17-2025 End: 01-17-2025 Bamboo flowsheet Joana Frey PA Work Phone: [facility] Start: 01-17-2025 End: 01-17-2025 Bamboo flowsheet Joana Frey PA Work Phone: [facility] Start: 04-27-2024 End: 04-27-2024 ambulatory KRAIG PACK Not Available Start: 04-12-2024 End: 04-12-2024 ambulatory JOANA FREY Not Available Start: 12-30-2023 End: 12-30-2023 flow sheet Joana Frey PA Work Phone: [facility] Comment on above: Third trimester preg maury Start: 05-23-2022 End: 05-24-[address] HAY MOMIN Facility:[facility] Start: 05-21-2022 End: 05-21-[address] HAY MOMIN Facility:[facility] Start: 02-14-2022 End: 02-15-[address] HAY MOMIN Facility:[facility] Start: 11-16-2021 End: 11-17-2021 ambulatory KEL LEONARD Facility:[facility] Start: 10-19-2021 ambulatory KEL LEONARD Facility:[facility] Procedures Date Procedure Procedure Detail Performing Clinician Start: 01-17-2025 Urnls dip stick/tabl et rgnt non-auto w/o micrscp Joana WILCOX Work Phone: Start: 12-30-2023 Urnls dip stick/tabl et rgnt non-auto w/o micrscp Joana WILCOX Work Phone: Plan of Treatment Date Care Activity Detail Author Start: 03-31-2025 End: 03-31-2025 Patient encounter procedure 03/31/2025 11:20 AM EDT Office Visit [facility] [address] [place] [phone] Joana Frey PA [address] [place], [id number] Arrived [facility] Comment on above: Arrived Start: 03-16-2025 End: 03-16-2025 Patient encounter procedure 03/16/2025 2:00 PM EDT Office Visit [facility] [address] [place] [id number] Joana Frey PA [address] [place] [address] [facility] Start: 01-17-2025 End: 01-17-2025 Patient encounter procedure 01/17/2025 3:40 PM EST Office Visit [facility] [address] [place] [id number] Joana Frey PA [address] [place] [address] Arrived [facility] Comment on above: Arrived Start: 01-13-2024 End: 01-13-2024 Patient encounter procedure 01/13/2024 2:40 PM EST Routine [facility] [address] [place] [phone] Kraig Pack DO [address] [place] [address] [facility] Payers Date Payer Category Payer Medicaid [id number] 2022 Medicaid [id number] 2014 Private Health Insurance GENERIC [employer]ERCIAL [id number] 2014 Unknown [employer]CIAL [id number] 2014-Present [address] [address] [place] [address] [id number] 1999 Unknown [id number]. 593 1999 Unknown [id number] [id number]. 593 1999 Unknown [id number] [id number]. 593 1999 Unknown [id number] [id number]. 593 1999 Unknown [id number] [id number]. 593 1999 Unknown [id number] 2.16.840.1.045862.3.579.2. 1259 1999 Unknown [id number] [id number]. 1259 1999 Unknown [id number] [id number]. 1259 1959 Self-pay 1959 Unknown [id number] 1959 Unknown [id number] Social History Date Type Detail Facility Tobacco smoking stat [facility] Tobacco smoking consumption unknown [facility] Start: 06-14-2023 [facility] Start: 2000 Sex Assigned At Not on file [facility] Gender identity Not on file [facility] History of Present illness Narrative 01-17-2025 BRENDEN Farr - 01/17/2025 3:40 PM EST Note Date & Type Note Facility 01-17-2025 History of Presen t illness Narrative Reason for Appointment: Patient ID: Tamie Lewis is a 24 y.o. female who presents for discuss hormones with pp anxiety Patient presents today for String Check Follow Up appointment. MEDICATIONS Current Outpatient Medications Medication Instructions Caplyta 42 MG capsule 1 capsule, Oral, Daily cephalexin (KEFLEX) 500 mg, Oral, 3 times daily ondansetron ODT (ZOFRAN-ODT) 4 mg, Oral, Every 8 hours PRN MV-Min-Fe Fum-FA-DHA ( 1 PO) 1 each, Oral, Daily QUEtiapine Fumarate (SEROQUEL XR PO) Oral, 10mg ALLERGIES Allergies Allergen Reactions Zolpidem Hallucinations Other reaction(s): Hallucinations PROBLEMS Active Ambulatory Problems Diagnosis Date Noted No Active Ambulatory Problems Resolved Ambulatory Problems Diagnosis Date Noted No Resolved Ambulatory Problems Past Medical History: Diagnosis Date ADD (attention deficit disorder) Bipolar disorder (CMS/HCC) Depression ([facility]/HCC) HISTORY PAST MEDICAL HISTORY SOCIAL HISTORY Past Medical History: Diagnosis Date ADD (attention deficit disorder) ADD/ADHD Bipolar disorder (CMS/HCC) Depression (CMS/[facility]) Social History Tobacco Use Smoking status: Not on file Smokeless tobacco: Not on file Substance Use Topics Alcohol use: Not on file Drug use: Not on file FAMILY HISTORY Family History Problem Relation Name Age of Onset Hypertension Other Migraines Other Sleep apnea Other Diabetes Other Coronary artery disease Other SURGICAL HISTORY Past Surgical History: Procedure Laterality Date OTHER SURGICAL HISTORY Reflux TONSILECTOMY, ADENOIDECTOMY, BILATERAL MYRINGOTOMY AND TUBES 03/29/2003 URETERAL REIMPLANTION REVIEW OF SYSTEMS Review of Systems: Review of Systems Constitutional: Negative. HENT: Negative. Eyes: Negative. Respiratory: Negative. Cardiovascular: Negative. Gastrointestinal: Negative. Genitourinary: Negative. Musculoskeletal: Negative. Skin: Negative. Neurological: Negative. All other systems reviewed and are negative. Hematological: Negative. Endocrine: Negative. Allergic/Immunologic: Negative. OBJECTIVE Objective: Physical Exam Constitutional: Appearance: Normal appearance. Genitourinary: Right Adnexa: not tender and no mass present. Left Adnexa: not tender and no mass present. No cervical discharge. IUD strings visualized. HENT: Head: Normocephalic. Nose: Nose normal. Mouth/Throat: Mouth: Mucous membranes are moist. Cardiovascular: Rate and Rhythm: Normal rate. Pulmonary: Effort: Pulmonary effort is normal. Abdominal: General: Bowel sounds are normal. Palpations: Abdomen is soft. Musculoskeletal: General: Normal range of motion. Cervical back: Normal range of motion. Neurological: General: No focal deficit present. Mental Status: She is alert. Skin: General: Skin is warm and dry. Psychiatric: Mood and Affect: Mood normal. Vitals and nursing note reviewed. Exam conducted with a pharmacy retail support specialist present. Vitals: There is no height or weight on file to calculate BMI. BP: No LMP recorded. ASSESSMENT & PLAN ICD-10-CM 1. anxiety O99.345 F41.8 2. UTI symptoms R39.9 POCT urinalysis dipstick manually resulted cephalexin (Keflex) 500 MG capsule Patient presents for sting check, states partner has felt strings, strings noted on exam but appear to be pushed up into cervix, no long strings noted. We will perform US to confirm placement. Pt also states she has been seeing her psychiatrist and restarted caplyta at 42mg. She is going to reach out to them regarding her mood swings and depression symptoms. We discussed possibly adding other medication and I advised her to talk with psychiatrist for his opinion. She will follow up with us for annual or sooner if needed Documented by BRENDEN Farr on behalf of: BRENDEN Farr documented in this encounter [facility] History of Present illness Narrative 12-30-2023 BRENDEN Farr - 12/30/2023 3:00 PM EST Note Date & Type Note Facility 12-30-2023 History of Presen t illness Narrative Reason for Appointment: Patient ID: Tamie Lewis is a 23 y.o. female who [...] deficit disorder) Bipolar disorder (CMS/HCC) Depression (CMS/[facility]) Family History Problem Relation Name Age of [...] nursing note reviewed. Exam conducted with a pharmacy retail support specialist present. Vitals: There is no height or [...] of: BRENDEN Farr documented in this encounter [facility] Healthcare Clinical Note 05-23-2022 Note Date & Type Note Facility 05-23-2022 Note PROCEDURE: XR SHOULD ER LT 2V or > COMPARISON: None. HISTORY: Pain of left shoulder joint FINDINGS: BONES:No fracture, acute abnormality, or significant arthropathy. SOFT TISSUES:Negative. No visible soft tissue swelling. EFFUSION:None visible. OTHER: Negative. IMPRESSION: No acute abnormality Electronically authenticated by: DWIGHT FOY Date: 2022-05-23 17:19 [facility] Evaluation note Note Date & Type Note Facility Evaluation note Diagnosis Third trimester state, incidental documented in this encounter [facility] Healthcare Evaluation note Note Date & Type Note Facility Evaluation note Diagnosis anxiety UTI symptoms documented in this encounter [facility] Summary Purpose Family History No Family History Records FoundNo Family History Records Found Advance Directives No Advanced Directives Records FoundNo Advanced Directives Records Found Additional Source Comments INFORMATION SOURCE (unrecogn ized section and content) DATE CREATED AUTHOR 10/08/2022 [facility] DATE CREATED AUTHOR AUTHOR'S ORGANIZ ATION 04/02/2025 [facility] EPIC Reason for Visit (unrecogniz ed section and content) Reason Comments Routine Visit Reason Comments discuss hormones with pp anxiety Care Teams (unrecognized sec tion and content) Public Health Analyst Relationship Specialty Start Date End Date Hay Momin MD [address] [place] [address] PCP - General Family Medicine 08/15/23 Public Health Analyst Relationship Specialty Start Date End Date Hay Momin MD [address] [place] [address] PCP - General Family Medicine 08/15/23 Public Health Analyst Relationship Specialty Start Date End Date Hay Momin MD [address] [place] [address] PCP - General Family Medicine 08/15/23 Public Health Analyst Relationship Specialty Start Date End Date Hay Momin MD [address] [place] [address] PCP - General Family Medicine 08/15/23 FOR [...] BE BASED ON THE PRIMARY CLINICAL RECORDS. [employer] provides no warranty or guarantee of the accuracy or completeness of information in this document.
--- NOTE | 2025-05-25 21:05 | PC.NURSE ---
[facility] [employer] Lillian at bedside - rectal exam and hemoccult obtained
--- NOTE | 2025-05-25 21:09 | CT_ITS ---
The [address] [address] Patient Name: BUBBA LARIOS MRN: [id number] date: 2000 Sex: F Assigned Patient Location: ED.MAIN Current Patient Location: ED.MAIN Accession/Order Number: [id number] Exam Date: 05/25/2025 22:24 Report Date: 05/25/2025 22:27 At the request of: MORENA VERONICA NP Procedure: CT abdomen pelvis w con CT Abdomen and Pelvis withcontrast TECHNIQUE: Axial imaging with 2-D reconstruction.100 cc of Omnipaque 300. The CT exam was performed using one or more the following dose reduction techniques: Automated exposure control, adjustment of the MA and/or Kv according to patient size, or use of the iterative reconstruction technique. COMPARISON: None History: Right lower quadrant pain for 12 weeks. Rectal bleeding. LIMITATIONS: None LOWER THORAX Unremarkable LIVER: Unremarkable GALLBLADDER: No gallbladder abnormality identified. BILE DUCTS: No dilatation SPLEEN: Unremarkable PANCREAS: Unremarkable ADRENAL GLANDS: Unremarkable KIDNEYS:Unremarkable AORTA: No abdominal aortic aneurysm identified. RETROPERITONEUM: No significant retroperitoneal abnormalities identified. MESENTERY:Unremarkable STOMACH:Unremarkable SMALL BOWEL: The small bowel loops are nondistended. APPENDIX: The appendix is normal. COLON: Unremarkable URINARY BLADDER: Urinary bladder is unremarkable. REPRODUCTIVE SYSTEM: IUD in place. No adnexal mass. PNEUMOPERITONEUM: None PERITONEAL FLUID:None BONY STRUCTURES: Unremarkable ABDOMINAL WALL: Unremarkable CT/CT abdomen pelvis w con IMPRESSION: No acute findings. Impression dictated by: Wisam Ham M.D. 05/25/2025 10:27 PM Dictation Location: [employer] Electronically authenticated by: [id number] Y Date: 05/25/2025 22:27
--- NOTE | 2025-05-25 21:10 | ED.GENADUL1 ---
Documented by User: Bj Hernandez NP 05/25/25 21:48 HPI HPI - General Adult General Chief complaint: Abdominal Pain Stated complaint: RECTUM BLEED RT SIDE SHARP PAIN Time Seen by Provider: 05/25/25 21:01 Source: patient Mode of arrival: walk-in Limitations: no limitations History of Present Illness HPI narrative: Patient is a 24-year-old female who presents to the emergency department today for evaluation of concerns for abdominal pain and rectal bleeding. She endorses the symptoms have been ongoing over the past 1 to 2 weeks. She endorses she is noticing some bright red blood with wiping after moving her bowels and streaks of bright red blood in the toilet with bowel movements. She denies any symptoms of nausea or vomiting. No urinary symptoms or back/flank pain. She endorses she is not on any antiplatelet or anticoagulant medications. Denies any NSAID use for analgesia and denies any alcohol use. No chest pain, shortness of breath, dizziness or syncopal episodes. She endorses she is otherwise healthy and denies any significant medical or surgical history otherwise. Related Data Home Medications ?Medication ?Instructions ?Recorded ?Confirmed bupropion HCl 150 mg tablet,12 hr 150 mg PO DAILY 02/29/24 05/25/25 sustained-release duloxetine 60 mg capsule,delayed 120 mg PO DAILY 02/29/24 05/25/25 release Previous Rx's ?Medication ?Instructions ?Recorded benzocaine 20 %-menthol 0.5 % 1 spray topical Q2H PRN Pain #56 03/02/24 topical aerosol (Dermoplast (with grams menthol)) ibuprofen 800 mg tablet 800 mg PO Q8H PRN Moderate Pain 03/02/24 #60 tabs azithromycin 250 mg tablet See Rx Instructions PO .COMPLEX #6 11/18/24 (Zithromax Z-Hugo) tabs Allergies Allergy/AdvReac Type Severity Reaction Status Date / Time zolpidem (From Ambien) Allergy Severe hallucinati Verified 05/25/25 21:04 ons Opioid HPI Opioid Management Most Recent Opioid Data: Last Pain Scale 1 Today, 22:10 Last ED Pain Assessment Today, 22:10 Ur Phencyclidine Scrn, (NEGATIVE) Negative 02/28/24, 16:00 PFSH PFSH Social History Smoking status: Current every day smoker Little interest or pleasure in doing things: not at all Feeling down, depressed, or hopeless: not at all Exam Narrative Exam Narrative: Constituational: Awake/ alert, no apparent distress, well hydrated HENMT: normocephalic, external ears normal, moist oral mucous membranes and oropharynx normal Eyes: EOMI and conjunctivae normal Neck: ROM intact Chest: inspection of chest normal Respiratory: Normal respiratory effort, clear to auscultation bilaterally Cardio: regular rate and regular rhythm GI: + Discomfort with palpation over RLQ, no rebound, abdomen is otherwise soft to palpation and non-tender Rectal: External hemorrhoids, normal rectal tone, soft brown stool present Back: nontender MSK: ROM intact, +NVI Skin: no rashes or petechiae Neuro: no focal deficits Psych: mental status grossly normal Constitutional Vital Signs, click to edit/add: Last Vital Signs Temp 98.6 F 05/25/25 21:04 Pulse 95 H 05/25/25 21:04 Resp 18 05/25/25 21:04 BP 120/62 05/25/25 22:08 Pulse Ox 98 05/25/25 22:08 O2 Del Method Room Air 05/25/25 21:04 Course Vital Signs Vital signs: Vital Signs Temperature 98.6 F 05/25/25 21:04 Pulse Rate 95 H 05/25/25 21:04 Respiratory Rate 18 05/25/25 21:04 Blood Pressure 146/112 H 05/25/25 21:04 Pulse Oximetry 98 05/25/25 21:04 Oxygen Delivery Method Room Air 05/25/25 21:04 Temperature 98.6 F 05/25/25 21:04 Pulse Rate 95 H 05/25/25 21:04 Respiratory Rate 18 05/25/25 21:04 Blood Pressure 120/62 05/25/25 22:08 Pulse Oximetry 98 05/25/25 22:08 Oxygen Delivery Method Room Air 05/25/25 21:04 Medical Decision Making [facility] Narrative Medical decision making narrative: Patient is a well-appearing 24-year-old female who presented to the emergency department today for evaluation concerns for right lower quadrant abdominal pain and intermittent rectal bleeding. Initial examination vital signs overall stable with exception to reported pain to the right lower quadrant. Otherwise no acute abdominal findings on exam. Labs stable as below. Care endorsed to ED attending physician Dr. Sheridan 2200p to follow-up with pending imaging results and further determine disposition of patient. Medical Records Medical records reviewed: Yes I reviewed the patient's medical records Lab Data Lab results reviewed: Yes I reviewed the patient's lab results Labs: Lab Results 05/25/25 05/25/25 05/25/25 Range/Units 21:00 21:19 22:05 WBC 7.0 (4.0-11.0) 10^3/uL RBC 4.57 (4.20-5.40) 10^6/uL Hgb 14.6 (12.0-16.0) g/dL Hct 41.6 (36.0-48.0) % MCV 91.0 (81.0-99.0) fL MCH 31.9 (26.7-34.0) pg MCHC 35.1 (29.9-35.2) g/dL RDW 12.5 (11.0-15.0) % Plt Count 282 (150-450) 10^3/uL MPV 10.0 (9.5-13.5) fL Neut % (Auto) 46.3 (43.0-75.0) % Lymph % (Auto) 44.4 (20.5-60.0) % [place] % (Auto) 5.8 (1.7-12.0) % Eos % (Auto) 3.0 (0.9-7.0) % Baso % (Auto) 0.4 (0.2-2.0) % Neut # (Auto) 3.3 (1.4-6.5) 10^3/uL Lymph # (Auto) 3.1 (1.2-3.8) 10^3/uL [place] # (Auto) 0.4 (0.3-0.8) 10^3/uL Eos # (Auto) 0.2 (0.0-0.7) 10^3/uL Baso # (Auto) 0.0 (0.0-0.1) 10^3/uL Abs Immat Gran (auto) 0.01 (0.00-0.03) 10^3/uL Imm/Tot Granulo (auto) 0.1 (0.0-0.5) % PT 10.4 (9.0-11.6) sec INR 0.98 Sodium 141 (136-145) mmol/L Potassium 3.5 (3.5-5.1) mmol/L Chloride 104 (98-107) mmol/L Carbon Dioxide 26.6 (21.0-32.0) mmol/L Anion Gap 13.9 BUN 12.0 (7.0-18.0) mg/dL Creatinine 0.97 (0.55-1.02) mg/dL Est GFR ( Amer) >60 (>=60 mL/min/1.73m^2) Est GFR (Non-Af Amer) >60 (>=60 mL/min/1.73m^2) BUN/Creatinine Ratio 12.4 Glucose 95 (74-106) mg/dL Calcium 9.5 (8.5-10.1) mg/dL Total Bilirubin 0.8 (0.2-1.0) mg/dL AST 16 (15-37) U/L ALT 23 (14-59) U/L Alkaline Phosphatase 79 (46-116) U/L Total Protein 6.9 (6.4-8.2) g/dL Albumin 3.9 (3.4-5.0) g/dL Globulin 3.0 g/dL Albumin/Globulin Ratio 1.3 Serum HCG, Qual Negative (NEGATIVE) Urine Color Lt. yellow (YELLOW) Urine Clarity Clear (CLEAR) Urine pH 6.5 (5.0-9.0) Ur Specific [place] <=1.005 A (1.005-1.025) Urine Protein Negative (NEG/TRACE) mg/dL Urine Glucose (UA) Negative (NEGATIVE) mg/dL Urine Ketones Negative (NEGATIVE) mg/dL Urine Occult Blood Negative (NEGATIVE) Urine Nitrite Negative (NEGATIVE) Urine Bilirubin Negative (NEGATIVE) Urine Urobilinogen 0.2 (0.2-1.0) EU/dL Ur Leukocyte Esterase Negative (NEGATIVE) Urine RBC None seen (0-2) #/HPF Urine WBC 0-2 A (NONE SEEN) #/HPF Ur Squamous Epith Cells Few A (NONE/RARE) #/LPF Urine Crystals None seen (None Seen) #/HPF Urine Bacteria Trace A (NONE SEEN) #/HPF Urine Casts None seen (NONE SEEN) #/LPF Urine Mucus None seen (NONE SEEN) Ur Culture Indicated? No Stool Occult Blood Negative Imaging Data CT scan - abdomen: Radiologist's impression: ITS Impressions Abdomen/Pelvis CT 05/25/25 21:09 IMPRESSION: No acute findings. Impression dictated by: Wisam Ham M.D. 05/25/2025 10:27 PM Dictation Location: [place] [id number] Electronically authenticated by: [id number] Y Date: 05/25/2025 22:27 Discharge Plan Discharge Chief Complaint: Abdominal Pain Clinical Impression: Abdominal pain, Rectal bleed Patient Disposition: Home, Self-Care Time of Disposition Decision: 22:51 Prescriptions / Home Meds: No Action azithromycin [Zithromax Z-Hugo] 250 mg tablet See Rx Instructions .ROUTE .COMPLEX Qty: 6 0RF Rx Instructions: For 250 mg dose pack: take 500 mg today (day 1), then 250 mg for 4 days (days 2-5) bupropion HCl 150 mg tablet sustained-release 12 hr 150 mg PO DAILY duloxetine 60 mg capsule,delayed release(DR/EC) 120 mg PO DAILY Dermoplast (with menthol) 20-0.5 % Aerosol 1 spray topical Q2H PRN (Reason: Pain) Qty: 56 1RF ibuprofen 800 mg tablet 800 mg PO Q8H PRN (Reason: Moderate Pain) Qty: 60 0RF Print Language: Qatari Instructions: Rectal Bleeding (ED), Abdominal Pain (ED) Referrals: KUSH SUE [Physician, Gastroenterology] - 1 week Documented by User: Ja Sheridan 05/25/25 22:52 HPI HPI - General Adult General Chief complaint: Abdominal Pain Stated complaint: RECTUM BLEED RT SIDE SHARP PAIN Time Seen by Provider: 05/25/25 21:01 Related Data Home Medications ?Medication ?Instructions ?Recorded ?Confirmed bupropion HCl 150 mg tablet,12 hr 150 mg PO DAILY 02/29/24 05/25/25 sustained-release duloxetine 60 mg capsule,delayed 120 mg PO DAILY 02/29/24 05/25/25 release Previous Rx's ?Medication ?Instructions ?Recorded benzocaine 20 %-menthol 0.5 % 1 spray topical Q2H PRN Pain #56 03/02/24 topical aerosol (Dermoplast (with grams menthol)) ibuprofen 800 mg tablet 800 mg PO Q8H PRN Moderate Pain 03/02/24 #60 tabs azithromycin 250 mg tablet See Rx Instructions PO .COMPLEX #6 11/18/24 (Zithromax Z-Hugo) tabs Allergies Allergy/AdvReac Type Severity Reaction Status Date / Time zolpidem (From Ambien) Allergy Severe hallucinati Verified 05/25/25 21:04 ons Opioid HPI Opioid Management Most Recent Opioid Data: Last Pain Scale 1 Today, 22:10 Last ED Pain Assessment Today, 22:10 Ur Phencyclidine Scrn, (NEGATIVE) Negative 02/28/24, 16:00 PFSH PFSH Social History Smoking status: Current every day smoker Little interest or pleasure in doing things: not at all Feeling down, depressed, or hopeless: not at all Exam Constitutional Vital Signs, click to edit/add: Last Vital Signs Temp 98.6 F 05/25/25 21:04 Pulse 95 H 05/25/25 21:04 Resp 18 05/25/25 21:04 BP 120/62 05/25/25 22:08 Pulse Ox 98 05/25/25 22:08 O2 Del Method Room Air 05/25/25 21:04 Course Vital Signs Vital signs: Vital Signs Temperature 98.6 F 05/25/25 21:04 Pulse Rate 95 H 05/25/25 21:04 Respiratory Rate 18 05/25/25 21:04 Blood Pressure 146/112 H 05/25/25 21:04 Pulse Oximetry 98 05/25/25 21:04 Oxygen Delivery Method Room Air 05/25/25 21:04 Temperature 98.6 F 05/25/25 21:04 Pulse Rate 95 H 05/25/25 21:04 Respiratory Rate 18 05/25/25 21:04 Blood Pressure 120/62 05/25/25 22:08 Pulse Oximetry 98 05/25/25 22:08 Oxygen Delivery Method Room Air 05/25/25 21:04 Medical Decision Making MDM Narrative Medical decision making narrative: Patient is a well-appearing 24-year-old female who presented to the emergency department today for evaluation concerns for right lower quadrant abdominal pain and intermittent rectal bleeding. Initial examination vital signs overall stable with exception to reported pain to the right lower quadrant. Otherwise no acute abdominal findings on exam. Labs stable as below. Care endorsed to ED attending physician Dr. Arvin Jeanp to follow-up with pending imaging results and further determine disposition of patient. Attending physician note -patient was initially evaluated by the [employer]ULT[employer] and she and I discussed the case. I asked the patient be sent for CT scanning of the abdomen pelvis and that blood and urine be obtained for testing. Blood results were unremarkable. Urinalysis was negative. Occult blood was negative. According to the radiologist, CT scanning of the abdomen pelvis did not reveal any worrisome pathology and there was nothing to account for the patient's symptoms. She was informed of the negative workup and discharged home with recommendation to follow-up with her primary care provider I also gave her follow-up information for gastroenterology Lab Data Labs: Lab Results 05/25/25 05/25/25 05/25/25 Range/Units 21:00 21:19 22:05 WBC 7.0 (4.0-11.0) 10^3/uL RBC 4.57 (4.20-5.40) 10^6/uL Hgb 14.6 (12.0-16.0) g/dL Hct 41.6 (36.0-48.0) % MCV 91.0 (81.0-99.0) fL MCH 31.9 (26.7-34.0) pg MCHC 35.1 (29.9-35.2) g/dL RDW 12.5 (11.0-15.0) % Plt Count 282 (150-450) 10^3/uL MPV 10.0 (9.5-13.5) fL Neut % (Auto) 46.3 (43.0-75.0) % Lymph % (Auto) 44.4 (20.5-60.0) % [place] % (Auto) 5.8 (1.7-12.0) % Eos % (Auto) 3.0 (0.9-7.0) % Baso % (Auto) 0.4 (0.2-2.0) % Neut # (Auto) 3.3 (1.4-6.5) 10^3/uL Lymph # (Auto) 3.1 (1.2-3.8) 10^3/uL [place] # (Auto) 0.4 (0.3-0.8) 10^3/uL Eos # (Auto) 0.2 (0.0-0.7) 10^3/uL Baso # (Auto) 0.0 (0.0-0.1) 10^3/uL Abs Immat Gran (auto) 0.01 (0.00-0.03) 10^3/uL Imm/Tot Granulo (auto) 0.1 (0.0-0.5) % PT 10.4 (9.0-11.6) sec INR 0.98 Sodium 141 (136-145) mmol/L Potassium 3.5 (3.5-5.1) mmol/L Chloride 104 (98-107) mmol/L Carbon Dioxide 26.6 (21.0-32.0) mmol/L Anion Gap 13.9 BUN 12.0 (7.0-18.0) mg/dL Creatinine 0.97 (0.55-1.02) mg/dL Est GFR ( Amer) >60 (>=60 mL/min/1.73m^2) Est GFR (Non-Af Amer) >60 (>=60 mL/min/1.73m^2) BUN/Creatinine Ratio 12.4 Glucose 95 (74-106) mg/dL Calcium 9.5 (8.5-10.1) mg/dL Total Bilirubin 0.8 (0.2-1.0) mg/dL AST 16 (15-37) U/L ALT 23 (14-59) U/L Alkaline Phosphatase 79 (46-116) U/L Total Protein 6.9 (6.4-8.2) g/dL Albumin 3.9 (3.4-5.0) g/dL Globulin 3.0 g/dL Albumin/Globulin Ratio 1.3 Serum HCG, Qual Negative (NEGATIVE) Urine Color Lt. yellow (YELLOW) Urine Clarity Clear (CLEAR) Urine pH 6.5 (5.0-9.0) Ur Specific [place] <=1.005 A (1.005-1.025) Urine Protein Negative (NEG/TRACE) mg/dL Urine Glucose (UA) Negative (NEGATIVE) mg/dL Urine Ketones Negative (NEGATIVE) mg/dL Urine Occult Blood Negative (NEGATIVE) Urine Nitrite Negative (NEGATIVE) Urine Bilirubin Negative (NEGATIVE) Urine Urobilinogen 0.2 (0.2-1.0) EU/dL Ur Leukocyte Esterase Negative (NEGATIVE) Urine RBC None seen (0-2) #/HPF Urine WBC 0-2 A (NONE SEEN) #/HPF Ur Squamous Epith Cells Few A (NONE/RARE) #/LPF Urine Crystals None seen (None Seen) #/HPF Urine Bacteria Trace A (NONE SEEN) #/HPF Urine Casts None seen (NONE SEEN) #/LPF Urine Mucus None seen (NONE SEEN) Ur Culture Indicated? No Stool Occult Blood Negative Imaging Data CT scan - abdomen: Radiologist's impression: ITS Impressions Abdomen/Pelvis CT 05/25/25 21:09 IMPRESSION: No acute findings. Impression dictated by: Wisam Ham M.D. 05/25/2025 10:27 PM Dictation Location: [employer] Electronically authenticated by: [id number] Y Date: 05/25/2025 22:27 Discharge Plan Discharge Chief Complaint: Abdominal Pain Clinical Impression: Abdominal pain, Rectal bleed Patient Disposition: Home, Self-Care Time of Disposition Decision: 22:51 Prescriptions / Home Meds: No Action azithromycin [Zithromax Z-Hugo] 250 mg tablet See Rx Instructions .ROUTE .COMPLEX Qty: 6 0RF Rx Instructions: For 250 mg dose pack: take 500 mg today (day 1), then 250 mg for 4 days (days 2-5) bupropion HCl 150 mg tablet sustained-release 12 hr 150 mg PO DAILY duloxetine 60 mg capsule,delayed release(DR/EC) 120 mg PO DAILY Dermoplast (with menthol) 20-0.5 % Aerosol 1 spray topical Q2H PRN (Reason: Pain) Qty: 56 1RF ibuprofen 800 mg tablet 800 mg PO Q8H PRN (Reason: Moderate Pain) Qty: 60 0RF Print Language: Qatari Instructions: Rectal Bleeding (ED), Abdominal Pain (ED) Referrals: KUSH SUE [Physician, Gastroenterology] - 1 week
[2025-05-25 21:26] LABS: Hematocrit 41.6 % (36.0-48.0); Hemoglobin 14.6 g/dL (12.0-16.0); Immature Granulocytes Abs Auto 0.01 10^3/uL (0.00-0.03); Immature Granulocytes Pct Auto 0.1 % (0.0-0.5); Lymphocytes Absolute Auto 3.1 10^3/uL (1.2-3.8); Mean Corpuscular HGB Conc 35.1 g/dL (29.9-35.2); Mean Corpuscular Hemoglobin 31.9 pg (26.7-34.0); Mean Corpuscular Volume 91.0 fL (81.0-99.0); Platelet Count 282 10^3/uL (150-450); Red Blood Count 4.57 10^6/uL (4.20-5.40); White Blood Count 7.0 10^3/uL (4.0-11.0)
[2025-05-25 21:37] LABS: INR 0.98; Prothrombin Time 10.4 sec (9.0-11.6)
[2025-05-25 21:39] LABS: Alanine Aminotransferase 23 U/L (14-59); Albumin Globulin Ratio 1.3; Albumin Level 3.9 g/dL (3.4-5.0); Alkaline Phosphatase 79 U/L (46-116); Anion Gap 13.9; Aspartate Amino Transferase 16 U/L (15-37); Blood Urea Nitrogen 12.0 mg/dL (7.0-18.0); Calcium 9.5 mg/dL (8.5-10.1); Carbon Dioxide 26.6 mmol/L (21.0-32.0); Chloride 104 mmol/L (98-107); Estimated GFR (African America >60 (>=60 mL/min/1.73m^2); Estimated GFR (Non-African Ame >60 (>=60 mL/min/1.73m^2); Globulin 3.0 g/dL; Glucose 95 mg/dL (74-106); Potassium 3.5 mmol/L (3.5-5.1); Sodium 141 mmol/L (136-145); Total Protein 6.9 g/dL (6.4-8.2)
[2025-05-25 22:16] LABS: Glucose Urine UA NEGATIVE (NEGATIVE)
[2025-05-25 22:23] LABS: Cast Seen? NONE SEEN #/LPF (NONE SEEN); Crystals Seen? None Seen #/HPF (None Seen); Urine Culture Indicated NO
--- NOTE | 2025-05-25 23:14 | PC.NURSE ---
i gave this patient verbal and written discharge orders and this patient voices yes to understaging these. at time of discharge this patient voices no concerns or needs and this patient shows no sign s of distress
== END 2025-05-25 23:14 | disposition home or self-care (01) ==
PROVIDERS: Nurse Practitioner; Emergency Provider Emergency Medicine; PCP Family Medicine
DX: K62.5 Hemorrhage of anus and rectum (principal); R10.31 Right lower quadrant pain; F17.200 Nicotine dependence, unspecified, uncomplicated
CPT/HCPCS: 36415; 74177; 80053; 81001; 84703; 85025; 85610; 99285; G0328; Q9967